=== PATIENT | male | born 1965 | race Caucasian/White ===

== ENCOUNTER 2021-04-30 13:12 | Inpatient (IN) | payer OTHER ==
[2021-04-30 13:29] VITALS: BMI 25.8
[2021-04-30] MEDS ORDERED: PIPERACILLIN/TAZOB 4.5 GM 4.5 GM in DEXTROSE 5%-WATER 100 ML IVPB ONE (14:10)
[2021-04-30] MEDS ORDERED: VANCOMYCIN 1 GM in D5W (PRE-DOCKED) 1,000 MG/250 ML IVPB ONE (14:10)
[2021-04-30] MEDS ORDERED: PIPERACILLIN/TAZOB 4.5 GM 4.5 GM/100 ML BAG IVPB ONE (14:34)
[2021-04-30] MEDS ORDERED: VANCOMYCIN 1 GRAM (PRE-DOCKED) 1,000 MG/250 ML BAG IVPB ONE (14:34)
[2021-04-30 14:38] LABS: BASO % 0.2 % (0-2.0); EOS % 1.3 % (0-4.5); HEMATOCRIT 32.8 % (35.4-49); HEMOGLOBIN 10.9 GM/dL (11.7-16.9); MCH 28.7 pg (25.7-33.7); MCHC 33.4 g/dl (32.0-35.9); MEAN PLT VOLUME 6.9 fl (7.5-11.1); MONO % 9.8 % (3.8-10.2); NEUT % 79.7 % (42.8-82.8); PLATELET COUNT 249 10^3/uL (134-434); RBC 3.81 M/mm3 (4.00-5.60); RDW 16.1 % (11.9-15.9); WHITE BLOOD COUNT 6.6 K/mm3 (4.0-10.0)
[2021-04-30 15:06] LABS: CALCIUM 9.1 mg/dL (8.5-10.1)
[2021-04-30 15:07] LABS: ALBUMIN 3.3 g/dl (3.4-5.0)
[2021-04-30 15:09] LABS: CREATININE 1.5 mg/dL (0.55-1.3)
[2021-04-30 15:11] LABS: BILIRUBIN,TOTAL 0.4 mg/dL (0.2-1); TOT PROT 7.4 g/dl (6.4-8.2)
[2021-04-30] MEDS ORDERED: INSULIN SLIDING SCALE (NOVOLOG) 1 VIAL SQ SCH (16:30)
[2021-04-30] MEDS ORDERED: CLINDAMYCIN 600MG PREMIX IVPB 600 MG/50 ML BAG IVPB SCH (18:00)
[2021-04-30] MEDS: INSULIN SLIDING SCALE (NOVOLOG) 1 VIAL SQ SCH ×2 (20:12→23:17)
[2021-04-30] MEDS: CEFTAZIDIME PENTAHYDRATE 1 GM in DEXTROSE 5%-WATER - 50 ML IVPB SCH (20:12)
[2021-04-30] MEDS: INSULIN (LEVEMIR) 100 UNITS/ML UNITS SQ SCH (23:17)
[2021-04-30] MEDS ORDERED: hydrALAZINE HCL 10 MG TABLET PO ONE (23:24)
[2021-05-01] MEDS ORDERED: DEXTROSE 5%-WATER - 50 ML IVPB ONE ×3 (01:14→17:03)
[2021-05-01] MEDS ORDERED: cefTAZidime PENTAHYDRATE 1 GM VIAL (RESTRICTED TO ID) ONE ×3 (01:14→17:03)
[2021-05-01] MEDS: CEFTAZIDIME PENTAHYDRATE 1 GM in DEXTROSE 5%-WATER - 50 ML IVPB SCH ×3 (01:34→17:13)
[2021-05-01] MEDS ORDERED: amLODIPine BESYLATE 5 MG TABLET (FP) PO ONE (05:44)
[2021-05-01] MEDS: INSULIN SLIDING SCALE (NOVOLOG) 1 VIAL SQ SCH ×4 (06:04→21:41)
[2021-05-01] MEDS: amLODIPine BESYLATE 5 MG TABLET (FP) PO SCH (09:55)
[2021-05-01] MEDS: SODIUM CHLORIDE 1,000 ML IV SCH (11:39)
[2021-05-01] MEDS: COLLAGENASE CLOSTRIDIUM HIST. 30 GRAMS TUBE TP SCH (13:43)
[2021-05-01] MEDS ORDERED: HEPARIN NA (PORCINE) 5,000 UNITS/ML 1ML VIAL SQ SCH (14:00)
[2021-05-01] MEDS: INSULIN (LEVEMIR) 100 UNITS/ML UNITS SQ SCH (21:42)
[2021-05-02] MEDS ORDERED: DEXTROSE 5%-WATER - 50 ML IVPB ONE ×3 (00:45→16:41)
[2021-05-02] MEDS ORDERED: cefTAZidime PENTAHYDRATE 1 GM VIAL (RESTRICTED TO ID) ONE ×3 (00:45→16:41)
[2021-05-02] MEDS: CEFTAZIDIME PENTAHYDRATE 1 GM in DEXTROSE 5%-WATER - 50 ML IVPB SCH ×3 (01:00→17:26)
[2021-05-02] MEDS ORDERED: hydrALAZINE HCL 20 MG/ML VIAL IVPUSH ONE (03:07)
[2021-05-02] MEDS ORDERED: amLODIPine BESYLATE 5 MG TABLET (FP) PO ONE (03:42)
[2021-05-02] MEDS: SODIUM CHLORIDE 1,000 ML IV SCH ×2 (03:59→12:19)
[2021-05-02] MEDS: INSULIN SLIDING SCALE (NOVOLOG) 1 VIAL SQ SCH ×4 (06:15→22:32)
[2021-05-02] MEDS: amLODIPine BESYLATE 5 MG TABLET (FP) PO SCH (09:09)
[2021-05-02] MEDS: COLLAGENASE CLOSTRIDIUM HIST. 30 GRAMS TUBE TP SCH (09:09)
[2021-05-02] MEDS ORDERED: amLODIPine BESYLATE 5 MG TABLET (FP) PO SCH (10:00)
[2021-05-02 10:24] LABS: BASO % 0.3 % (0-2.0); EOS % 2.8 % (0-4.5); HEMATOCRIT 31.1 % (35.4-49); HEMOGLOBIN 10.5 GM/dL (11.7-16.9); LYMPH % 18.2 % (8-40); MCH 29.1 pg (25.7-33.7); MCHC 33.7 g/dl (32.0-35.9); MEAN CELL VOLUME 86.5 fl (80-96); MEAN PLT VOLUME 6.6 fl (7.5-11.1); MONO % 11.1 % (3.8-10.2); NEUT % 67.6 % (42.8-82.8); PLATELET COUNT 287 10^3/uL (134-434); RDW 16.3 % (11.9-15.9); WHITE BLOOD COUNT 4.5 K/mm3 (4.0-10.0)
[2021-05-02 10:47] LABS: ALBUMIN 2.9 g/dl (3.4-5.0); BLOOD UREA NITROGEN 13.7 mg/dL (7-18)
[2021-05-02 10:50] LABS: CREATININE 1.4 mg/dL (0.55-1.3); PHOSPHOROUS 2.4 mg/dL (2.5-4.9); TOT PROT 6.8 g/dl (6.4-8.2)
[2021-05-02 10:51] LABS: BILIRUBIN,TOTAL 0.4 mg/dL (0.2-1)
[2021-05-02] MEDS ORDERED: INSULIN (NOVOLOG) ASPART 100 UNITS/ML 10ML VIAL ONE (21:31)
[2021-05-02] MEDS: INSULIN (LEVEMIR) 100 UNITS/ML UNITS SQ SCH (22:32)
[2021-05-03] MEDS ORDERED: cefTAZidime PENTAHYDRATE 1 GM VIAL (RESTRICTED TO ID) ONE ×3 (00:30→17:10)
[2021-05-03] MEDS ORDERED: DEXTROSE 5%-WATER - 50 ML IVPB ONE ×2 (00:31→10:35)
[2021-05-03] MEDS: CEFTAZIDIME PENTAHYDRATE 1 GM in DEXTROSE 5%-WATER - 50 ML IVPB SCH ×3 (01:54→17:17)
[2021-05-03] MEDS: INSULIN SLIDING SCALE (NOVOLOG) 1 VIAL SQ SCH ×4 (07:21→21:03)
[2021-05-03] MEDS ORDERED: INSULIN (NOVOLOG) ASPART 100 UNITS/ML 10ML VIAL ONE (10:35)
[2021-05-03] MEDS: amLODIPine BESYLATE 5 MG TABLET (FP) PO SCH (10:40)
[2021-05-03] MEDS: COLLAGENASE CLOSTRIDIUM HIST. 30 GRAMS TUBE TP SCH (10:41)
[2021-05-03 13:45] LABS: BASO % 0.2 % (0-2.0); EOS % 2.4 % (0-4.5); HEMOGLOBIN 10.4 GM/dL (11.7-16.9); LYMPH % 17.9 % (8-40); MCH 29.3 pg (25.7-33.7); MCHC 33.7 g/dl (32.0-35.9); MEAN PLT VOLUME 6.6 fl (7.5-11.1); MONO % 11.3 % (3.8-10.2); NEUT % 68.2 % (42.8-82.8); PLATELET COUNT 295 10^3/uL (134-434); RBC 3.56 M/mm3 (4.00-5.60); RDW 15.9 % (11.9-15.9); WHITE BLOOD COUNT 4.3 K/mm3 (4.0-10.0)
[2021-05-03 13:53] LABS: CALCIUM 8.8 mg/dL (8.5-10.1)
[2021-05-03 13:54] LABS: ALBUMIN 2.8 g/dl (3.4-5.0); BLOOD UREA NITROGEN 23.6 mg/dL (7-18)
[2021-05-03 13:57] LABS: CREATININE 1.8 mg/dL (0.55-1.3)
[2021-05-03 13:59] LABS: BILIRUBIN,TOTAL 0.3 mg/dL (0.2-1); TOT PROT 6.5 g/dl (6.4-8.2)
[2021-05-03] MEDS: INSULIN (LEVEMIR) 100 UNITS/ML UNITS SQ SCH (21:03)
[2021-05-03] MEDS: ATORVASTATIN CA 40 MG TABLET (FP) PO SCH (21:04)
[2021-05-04] MEDS ORDERED: cefTAZidime PENTAHYDRATE 1 GM VIAL (RESTRICTED TO ID) ONE ×3 (01:34→17:24)
[2021-05-04] MEDS ORDERED: DEXTROSE 5%-WATER - 50 ML IVPB ONE ×3 (01:34→17:24)
[2021-05-04] MEDS: CEFTAZIDIME PENTAHYDRATE 1 GM in DEXTROSE 5%-WATER - 50 ML IVPB SCH ×3 (01:41→18:19)
[2021-05-04] MEDS: INSULIN SLIDING SCALE (NOVOLOG) 1 VIAL SQ SCH ×4 (06:14→21:09)
[2021-05-04] MEDS: COLLAGENASE CLOSTRIDIUM HIST. 30 GRAMS TUBE TP SCH (09:26)
[2021-05-04] MEDS: amLODIPine BESYLATE 5 MG TABLET (FP) PO SCH (09:26)
[2021-05-04] MEDS ORDERED: INSULIN (NOVOLOG) ASPART 100 UNITS/ML 10ML VIAL ONE (11:22)
[2021-05-04] MEDS: SODIUM CHLORIDE 0.45% 1,000 ML IV SCH ×2 (11:32→22:36)
[2021-05-04 12:32] LABS: BASO % 0.2 % (0-2.0); EOS % 1.6 % (0-4.5); HEMATOCRIT 30.4 % (35.4-49); HEMOGLOBIN 10.1 GM/dL (11.7-16.9); LYMPH % 17.1 % (8-40); MCH 28.9 pg (25.7-33.7); MCHC 33.1 g/dl (32.0-35.9); MEAN CELL VOLUME 87.2 fl (80-96); MEAN PLT VOLUME 6.7 fl (7.5-11.1); MONO % 12.3 % (3.8-10.2); NEUT % 68.8 % (42.8-82.8); PLATELET COUNT 284 10^3/uL (134-434); RBC 3.49 M/mm3 (4.00-5.60); WHITE BLOOD COUNT 4.2 K/mm3 (4.0-10.0)
[2021-05-04 13:30] LABS: ALBUMIN 2.8 g/dl (3.4-5.0); BLOOD UREA NITROGEN 26.1 mg/dL (7-18); CREATININE 1.6 mg/dL (0.55-1.3); MAGNESIUM 2.2 mg/dL (1.8-2.4); PHOSPHOROUS 2.9 mg/dL (2.5-4.9)
[2021-05-04 13:31] LABS: BILIRUBIN,TOTAL 0.4 mg/dL (0.2-1); TOT PROT 6.5 g/dl (6.4-8.2)
[2021-05-04] MEDS: ATORVASTATIN CA 40 MG TABLET (FP) PO SCH (21:02)
[2021-05-04] MEDS: INSULIN (LEVEMIR) 100 UNITS/ML UNITS SQ SCH (21:09)
[2021-05-05] MEDS ORDERED: cefTAZidime PENTAHYDRATE 1 GM VIAL (RESTRICTED TO ID) ONE ×3 (01:26→18:31)
[2021-05-05] MEDS ORDERED: DEXTROSE 5%-WATER - 50 ML IVPB ONE ×3 (01:27→18:31)
[2021-05-05] MEDS: CEFTAZIDIME PENTAHYDRATE 1 GM in DEXTROSE 5%-WATER - 50 ML IVPB SCH ×4 (01:36→18:43)
[2021-05-05] MEDS: INSULIN SLIDING SCALE (NOVOLOG) 1 VIAL SQ SCH ×4 (06:09→21:27)
[2021-05-05] MEDS: amLODIPine BESYLATE 5 MG TABLET (FP) PO SCH (10:15)
[2021-05-05] MEDS: SODIUM CHLORIDE 0.45% 1,000 ML IV SCH (11:49)
[2021-05-05] MEDS: COLLAGENASE CLOSTRIDIUM HIST. 30 GRAMS TUBE TP SCH (11:49)
[2021-05-05] MEDS ORDERED: AMOX TR/POT CLAV 875MG/125MG TABLETS (FP) PO ONE (19:01)
[2021-05-05] MEDS: ATORVASTATIN CA 40 MG TABLET (FP) PO SCH (21:26)
[2021-05-05] MEDS: INSULIN (LEVEMIR) 100 UNITS/ML UNITS SQ SCH (21:26)
[2021-05-06] MEDS: INSULIN SLIDING SCALE (NOVOLOG) 1 VIAL SQ SCH ×2 (06:00→11:29)
[2021-05-06 06:49] VITALS: BP 149/80; PULSE 74; TEMP 98.3
[2021-05-06] MEDS ORDERED: AMOX TR/POT CLAV 875MG/125MG TABLETS (FP) PO SCH (08:00)
[2021-05-06] MEDS: amLODIPine BESYLATE 5 MG TABLET (FP) PO SCH (09:28)
[2021-05-06] MEDS: COLLAGENASE CLOSTRIDIUM HIST. 30 GRAMS TUBE TP SCH (11:30)
[2021-05-06 14:33] LABS: EPI CELLS 2 /uL (0-25.1); HYALINE CASTS 0 /uL (0-3.1); URINE APPEARANCE CLEAR; URINE BACTERIA 1 /uL (0-1359); URINE BILIRUBIN NEGATIVE (NEGATIVE); URINE COLOR YELLOW; URINE GLUCOSE (UA) TRACE (NEGATIVE); URINE KETONE NEGATIVE (NEGATIVE); URINE LEUK ESTERASE NEGATIVE (NEGATIVE); URINE NITRITE NEGATIVE (NEGATIVE); URINE PROTEIN 2+ (NEGATIVE); URINE RBC 5 /uL (0-23.9); URINE UROBILINOGEN 0.2 mg/dL (0.2-1.0); URINE WBC 1 /uL (0-25.8)
== END 2021-05-06 14:35 | disposition home or self-care (01) | DRG 602 ==
LOC: JER 13:12 → JERBED 14:42 → J6S 23:34
PROVIDERS: ADMIT Internal Medicine; ATTEND Internal Medicine
DX: L03.116 Cellulitis of left lower limb (principal); U07.1 COVID-19; L97.528 Non-pressure chronic ulcer of other part of left foot with other specified severity; L97.518 Non-pressure chronic ulcer of other part of right foot with other specified severity; N17.9 Acute kidney failure, unspecified; E78.5 Hyperlipidemia, unspecified; E11.621 Type 2 diabetes mellitus with foot ulcer; D36.7 Benign neoplasm of other specified sites; Z89.431 Acquired absence of right foot; E11.65 Type 2 diabetes mellitus with hyperglycemia; R22.42 Localized swelling, mass and lump, left lower limb; I12.9 Hypertensive chronic kidney disease with stage 1 through stage 4 chronic kidney disease, or unspecified chronic kidney disease; E11.22 Type 2 diabetes mellitus with diabetic chronic kidney disease; N18.9 Chronic kidney disease, unspecified; E11.610 Type 2 diabetes mellitus with diabetic neuropathic arthropathy
CPT/HCPCS: 36415; 73630-TC-LT; 73718-TC-LT; 73718-TC-RT; 76775-TC; 80053; 80061; 81003; 82570; 82962; 83735; 84100; 84156; 85025; 86140; 87040; 87070; 87205; 93005; 93010; 99285-25; C9803; G0463-25; U0003; U0005

== ENCOUNTER 2021-06-12 13:36 | Inpatient (IN) | payer OTHER ==
[2021-06-12] MEDS ORDERED: VANCOMYCIN 1 GM in D5W (PRE-DOCKED) 1,000 MG/250 ML IVPB ONE (14:30)
[2021-06-12] MEDS ORDERED: PIPERACILLIN/TAZOB 4.5 GM 4.5 GM in DEXTROSE 5%-WATER 100 ML IVPB ONE (14:30)
[2021-06-12] MEDS ORDERED: VANCOMYCIN 1 GRAM (PRE-DOCKED) 1,000 MG/250 ML BAG IVPB ONE ×2 (14:56→14:59)
[2021-06-12] MEDS ORDERED: PIPERACILLIN/TAZOB 4.5 GM 4.5 GM/100 ML BAG IVPB ONE (14:56)
[2021-06-12 15:10] LABS: BASO % 0.6 % (0-2.0); EOS % 3.1 % (0-4.5); HEMATOCRIT 31.6 % (35.4-49); LYMPH % 24.9 % (8-40); MCH 30.3 pg (25.7-33.7); MCHC 34.7 g/dl (32.0-35.9); MEAN CELL VOLUME 87.4 fl (80-96); MEAN PLT VOLUME 6.7 fl (7.5-11.1); MONO % 8.3 % (3.8-10.2); NEUT % 63.1 % (42.8-82.8); PLATELET COUNT 245 10^3/uL (134-434); RBC 3.61 M/mm3 (4.00-5.60); RDW 15.3 % (11.9-15.9)
[2021-06-12 15:20] LABS: INR 0.91 (0.83-1.09); PROTHROMBIN TIME (PATIENT) 10.4 SEC (9.7-13.0)
[2021-06-12 15:23] LABS: ACTIVATED PTT 31.9 SECONDS (25.2-36.5)
[2021-06-12 15:34] LABS: ALBUMIN 3.5 g/dl (3.4-5.0); BLOOD UREA NITROGEN 20.5 mg/dL (7-18); CALCIUM 8.6 mg/dL (8.5-10.1)
[2021-06-12 15:36] LABS: MAGNESIUM 2.4 mg/dL (1.8-2.4)
[2021-06-12 15:38] LABS: CREATININE 1.9 mg/dL (0.55-1.3)
[2021-06-12 15:39] LABS: BILIRUBIN,TOTAL 0.2 mg/dL (0.2-1); TOT PROT 7.5 g/dl (6.4-8.2)
[2021-06-12] MEDS ORDERED: HEPARIN NA (PORCINE) 5,000 UNITS/ML 1ML VIAL ONE (21:44)
[2021-06-12] MEDS ORDERED: ATORVASTATIN CA 40 MG TABLET (FP) ONE (21:44)
[2021-06-12] MEDS ORDERED: INSULIN SLIDING SCALE (NOVOLOG) 1 VIAL SQ ONE (21:45)
[2021-06-12] MEDS ORDERED: INSULIN (LEVEMIR) 100 UNITS/ML UNITS SQ ONE (21:45)
[2021-06-12] MEDS: HEPARIN NA (PORCINE) 5,000 UNITS/ML 1ML VIAL SQ SCH (22:30)
[2021-06-12] MEDS: INSULIN SLIDING SCALE (NOVOLOG) 1 VIAL SQ SCH (22:30)
[2021-06-12] MEDS: ATORVASTATIN CA 40 MG TABLET (FP) PO SCH (22:30)
[2021-06-12] MEDS: INSULIN (LEVEMIR) 100 UNITS/ML UNITS SQ SCH (22:30)
[2021-06-13] MEDS ORDERED: amLODIPine BESYLATE 5 MG TABLET (FP) PO ONE ×2 (00:09→03:47)
[2021-06-13] MEDS: CLINDAMYCIN 600MG PREMIX IVPB 600 MG/50 ML BAG IVPB SCH ×3 (02:04→17:15)
[2021-06-13] MEDS: COLLAGENASE CLOSTRIDIUM HIST. 30 GRAMS TUBE TP SCH ×2 (02:05→11:39)
[2021-06-13] MEDS ORDERED: hydrALAZINE HCL 20 MG/ML VIAL IVPUSH ONE (02:14)
[2021-06-13] MEDS ORDERED: PIPERACILLIN/TAZOB 3.375 GM 3.375 GM in DEXTROSE 5%-WATER - 50 ML IVPB SCH (03:00)
[2021-06-13] MEDS ORDERED: VANCOMYCIN/WATER BAGS 1,250 MG/250 ML BAG IVPB SCH (04:00)
[2021-06-13 04:19] VITALS: BMI 25.6
[2021-06-13] MEDS: HEPARIN NA (PORCINE) 5,000 UNITS/ML 1ML VIAL SQ SCH ×3 (05:56→22:35)
[2021-06-13] MEDS: INSULIN SLIDING SCALE (NOVOLOG) 1 VIAL SQ SCH ×4 (06:44→22:35)
[2021-06-13] MEDS ORDERED: CEFEPIME HCL/D5W 2 GM/50 ML BAG IVPB SCH (07:00)
[2021-06-13] MEDS ORDERED: CEFEPIME 2 GM in DEXTROSE 5%-WATER 2 GM/100 ML BAG IVPB SCH ×2 (07:00→18:04)
[2021-06-13 07:51] LABS: CALCIUM 9.2 mg/dL (8.5-10.1)
[2021-06-13 07:53] LABS: BLOOD UREA NITROGEN 18.5 mg/dL (7-18); MAGNESIUM 2.3 mg/dL (1.8-2.4)
[2021-06-13 07:55] LABS: CREATININE 1.6 mg/dL (0.55-1.3); PHOSPHOROUS 3.3 mg/dL (2.5-4.9)
[2021-06-13 07:57] LABS: BASO % 0.6 % (0-2.0); EOS % 3.6 % (0-4.5); HEMATOCRIT 30.1 % (35.4-49); HEMOGLOBIN 10.6 GM/dL (11.7-16.9); LYMPH % 8.2 % (8-40); MCH 30.3 pg (25.7-33.7); MCHC 35.2 g/dl (32.0-35.9); MEAN CELL VOLUME 86.3 fl (80-96); MEAN PLT VOLUME 7.2 fl (7.5-11.1); MONO % 7.2 % (3.8-10.2); NEUT % 80.4 % (42.8-82.8); PLATELET COUNT 245 10^3/uL (134-434); RBC 3.49 M/mm3 (4.00-5.60); RDW 15.3 % (11.9-15.9); WHITE BLOOD COUNT 5.4 K/mm3 (4.0-10.0)
[2021-06-13] MEDS: amLODIPine BESYLATE 5 MG TABLET (FP) PO SCH (11:14)
[2021-06-13 13:07] LABS: SARS-CoV-2 NAA Not Detected (Not Detected)
[2021-06-13] MEDS ORDERED: INSULIN (NOVOLOG) ASPART 100 UNITS/ML 10ML VIAL ONE ×2 (18:00→21:35)
[2021-06-13] MEDS: INSULIN (LEVEMIR) 100 UNITS/ML UNITS SQ SCH (22:35)
[2021-06-13] MEDS: CEFEPIME 2 GM in DEXTROSE 5%-WATER 2 GM/100 ML BAG IVPB SCH (22:35)
[2021-06-13] MEDS: ATORVASTATIN CA 40 MG TABLET (FP) PO SCH (22:35)
[2021-06-14] MEDS: CLINDAMYCIN 600MG PREMIX IVPB 600 MG/50 ML BAG IVPB SCH ×3 (02:13→17:20)
[2021-06-14] MEDS: ACETAMINOPHEN 325 MG TABLET (FP) PO PRN (03:13)
[2021-06-14] MEDS: INSULIN SLIDING SCALE (NOVOLOG) 1 VIAL SQ SCH ×4 (06:12→21:30)
[2021-06-14] MEDS: HEPARIN NA (PORCINE) 5,000 UNITS/ML 1ML VIAL SQ SCH ×3 (06:12→21:20)
[2021-06-14 09:56] LABS: PROTHROMBIN TIME (PATIENT) 11.5 SEC (9.7-13.0)
[2021-06-14] MEDS: CEFEPIME 2 GM in DEXTROSE 5%-WATER 2 GM/100 ML BAG IVPB SCH ×2 (09:59→21:15)
[2021-06-14] MEDS: amLODIPine BESYLATE 5 MG TABLET (FP) PO SCH (10:01)
[2021-06-14] MEDS: COLLAGENASE CLOSTRIDIUM HIST. 30 GRAMS TUBE TP SCH (10:01)
[2021-06-14] MEDS ORDERED: INSULIN (NOVOLOG) ASPART 100 UNITS/ML 10ML VIAL ONE (11:33)
[2021-06-14] MEDS ORDERED: FAMOTIDINE 20 MG TABLET PO ONE (18:12)
[2021-06-14] MEDS: PANTOPRAZOLE 40 MG TABLET PO SCH (20:54)
[2021-06-14] MEDS: INSULIN (LEVEMIR) 100 UNITS/ML UNITS SQ SCH (21:15)
[2021-06-14] MEDS: ATORVASTATIN CA 40 MG TABLET (FP) PO SCH (21:15)
[2021-06-15] MEDS: CLINDAMYCIN 600MG PREMIX IVPB 600 MG/50 ML BAG IVPB SCH ×2 (01:52→10:46)
[2021-06-15] MEDS: HEPARIN NA (PORCINE) 5,000 UNITS/ML 1ML VIAL SQ SCH ×3 (05:29→21:43)
[2021-06-15] MEDS: INSULIN (LEVEMIR) 100 UNITS/ML UNITS SQ SCH ×2 (06:06→21:42)
[2021-06-15] MEDS: INSULIN SLIDING SCALE (NOVOLOG) 1 VIAL SQ SCH ×4 (06:07→21:41)
[2021-06-15 09:25] LABS: HEMATOCRIT 32.8 % (35.4-49); HEMOGLOBIN 11.2 GM/dL (11.7-16.9); MCH 29.8 pg (25.7-33.7); MCHC 34.1 g/dl (32.0-35.9); MEAN CELL VOLUME 87.3 fl (80-96); MEAN PLT VOLUME 7.1 fl (7.5-11.1); PLATELET COUNT 231 10^3/uL (134-434); RBC 3.76 M/mm3 (4.00-5.60); RDW 15.3 % (11.9-15.9); WHITE BLOOD COUNT 4.3 K/mm3 (4.0-10.0)
[2021-06-15 09:52] LABS: BLOOD UREA NITROGEN 22.2 mg/dL (7-18); CALCIUM 9.1 mg/dL (8.5-10.1); MAGNESIUM 2.3 mg/dL (1.8-2.4)
[2021-06-15 09:54] LABS: CREATININE 1.7 mg/dL (0.55-1.3)
[2021-06-15] MEDS ORDERED: PANTOPRAZOLE 40 MG TABLET PO SCH (10:00)
[2021-06-15] MEDS: PANTOPRAZOLE 40 MG TABLET PO SCH (10:46)
[2021-06-15] MEDS: amLODIPine BESYLATE 5 MG TABLET (FP) PO SCH (10:46)
[2021-06-15] MEDS: COLLAGENASE CLOSTRIDIUM HIST. 30 GRAMS TUBE TP SCH (10:46)
[2021-06-15] MEDS: CEFEPIME 2 GM in DEXTROSE 5%-WATER 2 GM/100 ML BAG IVPB SCH ×2 (11:45→21:44)
[2021-06-15] MEDS: ACETAMINOPHEN 325 MG TABLET (FP) PO PRN (12:03)
[2021-06-15] MEDS: ATORVASTATIN CA 40 MG TABLET (FP) PO SCH (21:44)
[2021-06-16] MEDS: ACETAMINOPHEN 325 MG TABLET (FP) PO PRN (02:34)
[2021-06-16] MEDS: HEPARIN NA (PORCINE) 5,000 UNITS/ML 1ML VIAL SQ SCH (05:33)
[2021-06-16] MEDS: INSULIN (LEVEMIR) 100 UNITS/ML UNITS SQ SCH ×2 (06:06→21:01)
[2021-06-16] MEDS: INSULIN SLIDING SCALE (NOVOLOG) 1 VIAL SQ SCH ×4 (06:07→21:01)
[2021-06-16] MEDS ORDERED: DOCUSATE SODIUM 100 MG CAPSULE (FP) PO PRN (09:58)
[2021-06-16] MEDS ORDERED: POLYETHYLENE GLYCOL (HEALTHYLAX) 3350 17 GM PACKET PO PRN (09:58)
[2021-06-16] MEDS ORDERED: POLYETHYLENE GLYCOL (HEALTHYLAX) 3350 17 GM PACKET PO SCH (10:00)
[2021-06-16] MEDS ORDERED: DOCUSATE SODIUM 100 MG CAPSULE (FP) PO SCH (10:00)
[2021-06-16 10:01] LABS: BASO % 0.4 % (0-2.0); EOS % 2.9 % (0-4.5); HEMATOCRIT 34.1 % (35.4-49); HEMOGLOBIN 11.5 GM/dL (11.7-16.9); LYMPH % 22.4 % (8-40); MCH 29.5 pg (25.7-33.7); MCHC 33.7 g/dl (32.0-35.9); MEAN CELL VOLUME 87.6 fl (80-96); MEAN PLT VOLUME 7.2 fl (7.5-11.1); MONO % 9.9 % (3.8-10.2); NEUT % 64.4 % (42.8-82.8); PLATELET COUNT 244 10^3/uL (134-434); RBC 3.89 M/mm3 (4.00-5.60); WHITE BLOOD COUNT 4.2 K/mm3 (4.0-10.0)
[2021-06-16 10:21] LABS: CALCIUM 9.5 mg/dL (8.5-10.1)
[2021-06-16 10:22] LABS: BLOOD UREA NITROGEN 25.7 mg/dL (7-18)
[2021-06-16 10:25] LABS: CREATININE 1.7 mg/dL (0.55-1.3)
[2021-06-16] MEDS: SODIUM CHLORIDE 1,000 ML IV SCH ×2 (10:43→23:19)
[2021-06-16] MEDS: amLODIPine BESYLATE 5 MG TABLET (FP) PO SCH (10:44)
[2021-06-16] MEDS: CEFEPIME 2 GM in DEXTROSE 5%-WATER 2 GM/100 ML BAG IVPB SCH ×2 (10:44→21:03)
[2021-06-16] MEDS: PANTOPRAZOLE 40 MG TABLET PO SCH (10:44)
[2021-06-16] MEDS ORDERED: INSULIN (NOVOLOG) ASPART 100 UNITS/ML 10ML VIAL ONE ×2 (11:43→20:42)
[2021-06-16] MEDS: COLLAGENASE CLOSTRIDIUM HIST. 30 GRAMS TUBE TP SCH (12:49)
[2021-06-16] MEDS: DOXYCYCLINE HYCLATE 100 MG CAPSULE PO SCH ×2 (20:55→23:17)
[2021-06-16] MEDS: ATORVASTATIN CA 40 MG TABLET (FP) PO SCH (21:02)
[2021-06-17] MEDS: INSULIN (LEVEMIR) 100 UNITS/ML UNITS SQ SCH ×2 (06:10→21:42)
[2021-06-17] MEDS: INSULIN SLIDING SCALE (NOVOLOG) 1 VIAL SQ SCH ×4 (06:11→21:43)
[2021-06-17] MEDS: amLODIPine BESYLATE 5 MG TABLET (FP) PO SCH (09:22)
[2021-06-17] MEDS: CEFEPIME 2 GM in DEXTROSE 5%-WATER 2 GM/100 ML BAG IVPB SCH (09:23)
[2021-06-17 09:49] LABS: BASO % 0.5 % (0-2.0); EOS % 2.8 % (0-4.5); HEMATOCRIT 30.8 % (35.4-49); HEMOGLOBIN 10.9 GM/dL (11.7-16.9); INR 1.01 (0.83-1.09); LYMPH % 16.3 % (8-40); MCH 30.9 pg (25.7-33.7); MCHC 35.5 g/dl (32.0-35.9); MEAN PLT VOLUME 6.8 fl (7.5-11.1); MONO % 10.9 % (3.8-10.2); NEUT % 69.5 % (42.8-82.8); PLATELET COUNT 205 10^3/uL (134-434); PROTHROMBIN TIME (PATIENT) 11.6 SEC (9.7-13.0); RBC 3.54 M/mm3 (4.00-5.60); WHITE BLOOD COUNT 4.3 K/mm3 (4.0-10.0)
[2021-06-17] MEDS ORDERED: LIDOCAINE HCL 1%, 10 MG/ML (20ML VIAL) INF ONE ×2 (10:44)
[2021-06-17] MEDS ORDERED: BUPIVACAINE HCL/PF 0.5% (5MG/ML) 10 ML VIAL IJ ONE ×2 (10:45)
[2021-06-17] MEDS ORDERED: PROPOFOL 20 ML ONE (10:46)
[2021-06-17] MEDS ORDERED: MIDAZOLAM HCL 2 MG/2 ML SINGLE DOSE VIAL ONE ×2 (10:47)
[2021-06-17 10:58] LABS: CALCIUM 8.8 mg/dL (8.5-10.1)
[2021-06-17 10:59] LABS: BLOOD UREA NITROGEN 21.8 mg/dL (7-18)
[2021-06-17 11:02] LABS: CREATININE 1.6 mg/dL (0.55-1.3)
[2021-06-17] MEDS ORDERED: DEXAMETHASONE SOD PHOSPHATE 4 MG/1 ML VIAL ONE (11:16)
[2021-06-17] MEDS: SODIUM CHLORIDE 1,000 ML IV SCH ×2 (12:27→13:47)
[2021-06-17] MEDS: DOXYCYCLINE HYCLATE 100 MG CAPSULE PO SCH ×2 (12:27→17:39)
[2021-06-17] MEDS: COLLAGENASE CLOSTRIDIUM HIST. 30 GRAMS TUBE TP SCH (12:27)
[2021-06-17] MEDS ORDERED: ONDANSETRON 4 MG/2 ML VIAL IVPUSH PRN (12:42)
[2021-06-17] MEDS ORDERED: LACTATED RINGERS SOLUTION 1,000 ML IV SCH (12:45)
[2021-06-17] MEDS ORDERED: ACETAMINOPHEN 325 MG TABLET (FP) PO PRN (12:55)
[2021-06-17] MEDS ORDERED: POLYETHYLENE GLYCOL (HEALTHYLAX) 3350 17 GM PACKET PO PRN (12:55)
[2021-06-17] MEDS ORDERED: DOCUSATE SODIUM 100 MG CAPSULE (FP) PO PRN (12:55)
[2021-06-17] MEDS: PANTOPRAZOLE 40 MG TABLET PO SCH (13:47)
[2021-06-17] MEDS: ATORVASTATIN CA 40 MG TABLET (FP) PO SCH (21:45)
[2021-06-18] MEDS: SODIUM CHLORIDE 1,000 ML IV SCH ×2 (01:09→12:59)
[2021-06-18] MEDS: INSULIN (LEVEMIR) 100 UNITS/ML UNITS SQ SCH ×2 (06:19→21:50)
[2021-06-18] MEDS: INSULIN SLIDING SCALE (NOVOLOG) 1 VIAL SQ SCH ×4 (06:22→21:51)
[2021-06-18] MEDS: DOXYCYCLINE HYCLATE 100 MG CAPSULE PO SCH ×2 (09:21→17:23)
[2021-06-18] MEDS: amLODIPine BESYLATE 5 MG TABLET (FP) PO SCH (09:21)
[2021-06-18] MEDS: PANTOPRAZOLE 40 MG TABLET PO SCH (09:21)
[2021-06-18 09:42] LABS: BASO % 0.2 % (0-2.0); EOS % 0.5 % (0-4.5); HEMATOCRIT 28.8 % (35.4-49); HEMOGLOBIN 10.2 GM/dL (11.7-16.9); LYMPH % 11.9 % (8-40); MCH 30.8 pg (25.7-33.7); MCHC 35.5 g/dl (32.0-35.9); MEAN CELL VOLUME 86.9 fl (80-96); MEAN PLT VOLUME 7.1 fl (7.5-11.1); MONO % 9.1 % (3.8-10.2); NEUT % 78.3 % (42.8-82.8); PLATELET COUNT 210 10^3/uL (134-434); RBC 3.32 M/mm3 (4.00-5.60); RDW 15.8 % (11.9-15.9); WHITE BLOOD COUNT 7.8 K/mm3 (4.0-10.0)
[2021-06-18 09:56] LABS: BLOOD UREA NITROGEN 25.3 mg/dL (7-18); CALCIUM 9.1 mg/dL (8.5-10.1)
[2021-06-18 10:00] LABS: CREATININE 1.6 mg/dL (0.55-1.3)
[2021-06-18] MEDS: COLLAGENASE CLOSTRIDIUM HIST. 30 GRAMS TUBE TP SCH (13:08)
[2021-06-18] MEDS: ATORVASTATIN CA 40 MG TABLET (FP) PO SCH (21:50)
[2021-06-19] MEDS: INSULIN (LEVEMIR) 100 UNITS/ML UNITS SQ SCH ×2 (06:09→21:09)
[2021-06-19] MEDS: INSULIN SLIDING SCALE (NOVOLOG) 1 VIAL SQ SCH ×4 (06:10→21:09)
[2021-06-19 08:52] LABS: BASO % 0.5 % (0-2.0); EOS % 2.1 % (0-4.5); HEMATOCRIT 29.6 % (35.4-49); HEMOGLOBIN 10.2 GM/dL (11.7-16.9); LYMPH % 20.3 % (8-40); MCH 30.3 pg (25.7-33.7); MCHC 34.3 g/dl (32.0-35.9); MEAN CELL VOLUME 88.2 fl (80-96); MEAN PLT VOLUME 7.2 fl (7.5-11.1); MONO % 10.2 % (3.8-10.2); NEUT % 66.9 % (42.8-82.8); PLATELET COUNT 218 10^3/uL (134-434); RBC 3.35 M/mm3 (4.00-5.60); RDW 15.6 % (11.9-15.9); WHITE BLOOD COUNT 4.8 K/mm3 (4.0-10.0)
[2021-06-19 09:29] LABS: CALCIUM 8.9 mg/dL (8.5-10.1)
[2021-06-19 09:32] LABS: CREATININE 1.4 mg/dL (0.55-1.3)
[2021-06-19] MEDS: amLODIPine BESYLATE 5 MG TABLET (FP) PO SCH (10:51)
[2021-06-19] MEDS: DOXYCYCLINE HYCLATE 100 MG CAPSULE PO SCH ×2 (10:51→17:40)
[2021-06-19] MEDS: PANTOPRAZOLE 40 MG TABLET PO SCH (10:51)
[2021-06-19] MEDS: COLLAGENASE CLOSTRIDIUM HIST. 30 GRAMS TUBE TP SCH (15:15)
[2021-06-19] MEDS ORDERED: INSULIN (NOVOLOG) ASPART 100 UNITS/ML 10ML VIAL ONE (20:54)
[2021-06-19] MEDS: ATORVASTATIN CA 40 MG TABLET (FP) PO SCH (21:08)
[2021-06-19 22:37] VITALS: PULSE 71
[2021-06-20] MEDS: INSULIN SLIDING SCALE (NOVOLOG) 1 VIAL SQ SCH (06:01)
[2021-06-20] MEDS: INSULIN (LEVEMIR) 100 UNITS/ML UNITS SQ SCH (06:04)
[2021-06-20] MEDS ORDERED: INSULIN (NOVOLOG) ASPART 100 UNITS/ML 10ML VIAL ONE (06:07)
[2021-06-20 06:21] VITALS: BP 133/96; TEMP 98.7
[2021-06-20] MEDS: amLODIPine BESYLATE 5 MG TABLET (FP) PO SCH (09:04)
[2021-06-20] MEDS: DOXYCYCLINE HYCLATE 100 MG CAPSULE PO SCH (09:05)
[2021-06-20] MEDS: PANTOPRAZOLE 40 MG TABLET PO SCH (09:05)
== END 2021-06-20 10:11 | disposition home or self-care (01) | DRG 603 ==
LOC: JER 13:36 → JERBED 16:09 → J8W 23:27
PROVIDERS: ADMIT Internal Medicine; ATTEND Internal Medicine
PROC: 0JBR0ZX Excision of Left Foot Subcutaneous Tissue and Fascia, Open Approach, Diagnostic (ICD-10-PCS; principal; 2021-06-17 10:30)
DX: L03.116 Cellulitis of left lower limb (principal); L97.429 Non-pressure chronic ulcer of left heel and midfoot with unspecified severity; A52.16 Charcot's arthropathy (tabetic); E78.5 Hyperlipidemia, unspecified; Z79.4 Long term (current) use of insulin; E11.65 Type 2 diabetes mellitus with hyperglycemia; D63.8 Anemia in other chronic diseases classified elsewhere; E11.22 Type 2 diabetes mellitus with diabetic chronic kidney disease; I12.9 Hypertensive chronic kidney disease with stage 1 through stage 4 chronic kidney disease, or unspecified chronic kidney disease; N18.9 Chronic kidney disease, unspecified; E11.40 Type 2 diabetes mellitus with diabetic neuropathy, unspecified; E11.319 Type 2 diabetes mellitus with unspecified diabetic retinopathy without macular edema; E11.621 Type 2 diabetes mellitus with foot ulcer; R22.42 Localized swelling, mass and lump, left lower limb
CPT/HCPCS: 36415; 73610-TC-LT-FY; 73610-TC-RT-FY; 73630-TC-LT; 73630-TC-RT-FY; 80048; 80053; 82962; 83735; 84100; 85025; 85027; 85610; 85651; 85730; 86850; 86900; 86901; 87070; 87186; 87205; 88305-TC; 93005; 93010; 94760; 99285-25; C9803; G0463-25; J1644; U0003; U0005

== ENCOUNTER 2022-01-28 14:12 | Inpatient (IN) | payer OTHER, BC ==
[2022-01-28 14:48] VITALS: BMI 26.6
[2022-01-28] MEDS ORDERED: PIPERACILLIN/TAZOB 4.5 GM 4.5 GM in DEXTROSE 5%-WATER 100 ML IVPB ONE (15:35)
[2022-01-28] MEDS ORDERED: VANCOMYCIN 1 GM in D5W (PRE-DOCKED) 1,000 MG/250 ML IVPB ONE (15:35)
[2022-01-28] MEDS ORDERED: VANCOMYCIN/WATER FOR INJ (PEG) 1,000 MG/200 ML BAG IVPB ONE (15:46)
[2022-01-28] MEDS ORDERED: PIPERACILLIN/TAZOB 4.5 GM 4.5 GM/100 ML BAG IVPB ONE (15:46)
[2022-01-28 16:30] LABS: BASO % 0.3 % (0-2.0); EOS % 0.8 % (0-4.5); HEMATOCRIT 33.8 % (35.4-49); HEMOGLOBIN 11.6 GM/dL (11.7-16.9); LYMPH % 4.3 % (8-40); MCH 32.1 pg (25.7-33.7); MCHC 34.2 g/dl (32.0-35.9); MEAN CELL VOLUME 93.7 fl (80-96); MEAN PLT VOLUME 7.5 fl (7.5-11.1); MONO % 8.3 % (3.8-10.2); NEUT % 86.3 % (42.8-82.8); PLATELET COUNT 305 10^3/uL (134-434); RBC 3.61 M/mm3 (4.00-5.60); RDW 13.2 % (11.9-15.9); WHITE BLOOD COUNT 8.8 K/mm3 (4.0-10.0)
[2022-01-28 16:37] LABS: INR 1.02 (0.83-1.09); PROTHROMBIN TIME (PATIENT) 11.7 SEC (9.7-13.0)
[2022-01-28 16:40] LABS: ACTIVATED PTT 27.3 SECONDS (25.2-36.5)
[2022-01-28] MEDS ORDERED: ACETAMINOPHEN 1000 MG/100 ML BAG IVPB ONE (16:45)
[2022-01-28 16:48] LABS: CALCIUM 9.1 mg/dL (8.5-10.1)
[2022-01-28 16:49] LABS: ALBUMIN 3.4 g/dl (3.4-5.0)
[2022-01-28 16:52] LABS: CREATININE 2.2 mg/dL (0.55-1.3)
[2022-01-28 16:53] LABS: BILIRUBIN,TOTAL 0.7 mg/dL (0.2-1)
[2022-01-28 16:54] LABS: TOT PROT 7.5 g/dl (6.4-8.2)
[2022-01-28] MEDS ORDERED: ACETAMINOPHEN INJECTION 100 ML IVPB ONE (16:56)
[2022-01-28] MEDS ORDERED: SODIUM CHLORIDE 2,381 ML IV ONE (17:01)
[2022-01-28] MEDS: PIPERACILLIN/TAZOB 3.375 GM 3.375 GM in DEXTROSE 5%-WATER - 50 ML IVPB SCH (17:03)
[2022-01-28 18:36] LABS: BLOOD UREA NITROGEN 24.5 mg/dL (7-18); CALCIUM 8.4 mg/dL (8.5-10.1)
[2022-01-28 18:39] LABS: CREATININE 2.2 mg/dL (0.55-1.3)
[2022-01-28] MEDS ORDERED: HEPARIN NA (PORCINE) 5,000 UNITS/ML 1ML VIAL SQ SCH (22:00)
[2022-01-28] MEDS: INSULIN (LEVEMIR) 100 UNITS/ML UNITS SQ SCH (23:47)
[2022-01-28] MEDS: INSULIN SLIDING SCALE (NOVOLOG) 1 VIAL SQ SCH (23:47)
[2022-01-29] MEDS: CLINDAMYCIN 600MG PREMIX IVPB 600 MG/50 ML BAG IVPB SCH ×4 (00:13→17:24)
[2022-01-29] MEDS ORDERED: CLINDAMYCIN 600MG PREMIX IVPB 600 MG/50 ML BAG IVPB ONE ×2 (00:14→09:50)
[2022-01-29] MEDS: PIPERACILLIN/TAZOB 3.375 GM 3.375 GM in DEXTROSE 5%-WATER - 50 ML IVPB SCH ×3 (02:21→17:24)
[2022-01-29] MEDS ORDERED: PIPERACILLIN/TAZOB 3.375 GM 3.375 GM/50 ML BAG IVPB ONE ×4 (02:23→17:27)
[2022-01-29] MEDS: INSULIN SLIDING SCALE (NOVOLOG) 1 VIAL SQ SCH ×4 (06:47→21:52)
[2022-01-29 08:06] LABS: BASO % 0.4 % (0-2.0); EOS % 1.7 % (0-4.5); HEMATOCRIT 28.9 % (35.4-49); LYMPH % 6.7 % (8-40); MCHC 34.6 g/dl (32.0-35.9); MEAN CELL VOLUME 92.5 fl (80-96); MEAN PLT VOLUME 7.2 fl (7.5-11.1); MONO % 9.3 % (3.8-10.2); NEUT % 81.9 % (42.8-82.8); PLATELET COUNT 280 10^3/uL (134-434); RBC 3.12 M/mm3 (4.00-5.60); RDW 13.6 % (11.9-15.9); WHITE BLOOD COUNT 6.9 K/mm3 (4.0-10.0)
[2022-01-29 08:16] LABS: BLOOD UREA NITROGEN 24.4 mg/dL (7-18); CALCIUM 8.1 mg/dL (8.5-10.1); MAGNESIUM 2.1 mg/dL (1.8-2.4)
[2022-01-29 08:20] LABS: CREATININE 2.1 mg/dL (0.55-1.3); PHOSPHOROUS 2.8 mg/dL (2.5-4.9)
[2022-01-29] MEDS: INSULIN (LEVEMIR) 100 UNITS/ML UNITS SQ SCH ×2 (10:03→22:00)
[2022-01-29] MEDS: SODIUM CHLORIDE 0.45% 1,000 ML IV SCH (17:24)
[2022-01-29] MEDS ORDERED: HEPARIN NA (PORCINE) 5,000 UNITS/ML 1ML VIAL ONE (21:54)
[2022-01-29] MEDS: HEPARIN NA (PORCINE) 5,000 UNITS/ML 1ML VIAL SQ SCH (22:00)
[2022-01-29 22:59] LABS: EPI CELLS 1 /uL (0-25.1); HYALINE CASTS 0 /uL (0-3.1); PH,URINE 6.5 (5.0-8.0); URINE APPEARANCE CLEAR; URINE BACTERIA 1 /uL (0-1359); URINE BILIRUBIN NEGATIVE (NEGATIVE); URINE COLOR YELLOW; URINE GLUCOSE (UA) TRACE (NEGATIVE); URINE KETONE NEGATIVE (NEGATIVE); URINE LEUK ESTERASE NEGATIVE (NEGATIVE); URINE NITRITE NEGATIVE (NEGATIVE); URINE PROTEIN 1+ (NEGATIVE); URINE RBC 13 /uL (0-23.9); URINE UROBILINOGEN 0.2 mg/dL (0.2-1.0); URINE WBC 1 /uL (0-25.8)
[2022-01-30] MEDS: CLINDAMYCIN 600MG PREMIX IVPB 600 MG/50 ML BAG IVPB SCH ×3 (02:17→18:07)
[2022-01-30] MEDS: SODIUM CHLORIDE 0.45% 1,000 ML IV SCH (02:19)
[2022-01-30] MEDS: PIPERACILLIN/TAZOB 3.375 GM 3.375 GM in DEXTROSE 5%-WATER - 50 ML IVPB SCH ×3 (03:01→18:08)
[2022-01-30] MEDS: INSULIN SLIDING SCALE (NOVOLOG) 1 VIAL SQ SCH ×4 (06:34→22:27)
[2022-01-30] MEDS: amLODIPine BESYLATE 5 MG TABLET (FP) PO SCH (09:02)
[2022-01-30] MEDS: HEPARIN NA (PORCINE) 5,000 UNITS/ML 1ML VIAL SQ SCH ×2 (09:05→22:20)
[2022-01-30] MEDS: INSULIN (LEVEMIR) 100 UNITS/ML UNITS SQ SCH ×2 (13:11→22:20)
[2022-01-30 13:27] LABS: BASO % 0.3 % (0-2.0); EOS % 3.1 % (0-4.5); HEMATOCRIT 30.3 % (35.4-49); HEMOGLOBIN 10.3 GM/dL (11.7-16.9); LYMPH % 12.3 % (8-40); MCH 31.7 pg (25.7-33.7); MEAN CELL VOLUME 93.2 fl (80-96); MEAN PLT VOLUME 7.4 fl (7.5-11.1); MONO % 9.2 % (3.8-10.2); NEUT % 75.1 % (42.8-82.8); PLATELET COUNT 282 10^3/uL (134-434); RBC 3.25 M/mm3 (4.00-5.60); RDW 12.8 % (11.9-15.9); WHITE BLOOD COUNT 5.5 K/mm3 (4.0-10.0)
[2022-01-30 13:44] LABS: CALCIUM 8.5 mg/dL (8.5-10.1)
[2022-01-30 13:45] LABS: ALBUMIN 2.8 g/dl (3.4-5.0); BLOOD UREA NITROGEN 14.5 mg/dL (7-18)
[2022-01-30 13:49] LABS: TOT PROT 6.5 g/dl (6.4-8.2)
[2022-01-30 13:50] LABS: BILIRUBIN,TOTAL 0.4 mg/dL (0.2-1)
[2022-01-30] MEDS ORDERED: SODIUM CHLORIDE 0.45% 1,000 ML IV SCH (14:03)
[2022-01-30] MEDS: COLLAGENASE CLOSTRIDIUM HIST. 30 GRAMS TUBE TP SCH (14:54)
[2022-01-30] MEDS: PANTOPRAZOLE 40 MG TABLET PO SCH (19:13)
[2022-01-30] MEDS ORDERED: INSULIN (NOVOLOG) ASPART 100 UNITS/ML 10ML VIAL ONE (21:41)
[2022-01-30] MEDS: ATORVASTATIN CA 40 MG TABLET (FP) PO SCH (22:20)
[2022-01-31] MEDS: PIPERACILLIN/TAZOB 3.375 GM 3.375 GM in DEXTROSE 5%-WATER - 50 ML IVPB SCH ×3 (02:50→18:09)
[2022-01-31] MEDS: CLINDAMYCIN 600MG PREMIX IVPB 600 MG/50 ML BAG IVPB SCH ×3 (02:50→18:09)
[2022-01-31] MEDS: INSULIN SLIDING SCALE (NOVOLOG) 1 VIAL SQ SCH ×4 (06:45→21:52)
[2022-01-31] MEDS: PANTOPRAZOLE 40 MG TABLET PO SCH (09:43)
[2022-01-31] MEDS: amLODIPine BESYLATE 5 MG TABLET (FP) PO SCH (09:43)
[2022-01-31] MEDS: HEPARIN NA (PORCINE) 5,000 UNITS/ML 1ML VIAL SQ SCH ×2 (09:43→21:42)
[2022-01-31 10:33] LABS: BASO % 0.4 % (0-2.0); HEMATOCRIT 32.3 % (35.4-49); LYMPH % 13.9 % (8-40); MCH 31.5 pg (25.7-33.7); MEAN CELL VOLUME 92.7 fl (80-96); MEAN PLT VOLUME 7.2 fl (7.5-11.1); NEUT % 74.7 % (42.8-82.8); PLATELET COUNT 328 10^3/uL (134-434); RBC 3.49 M/mm3 (4.00-5.60); RDW 12.9 % (11.9-15.9); WHITE BLOOD COUNT 5.5 K/mm3 (4.0-10.0)
[2022-01-31 10:53] LABS: BLOOD UREA NITROGEN 12.9 mg/dL (7-18)
[2022-01-31 10:54] LABS: CALCIUM 8.9 mg/dL (8.5-10.1); MAGNESIUM 1.9 mg/dL (1.8-2.4)
[2022-01-31 10:58] LABS: TOT PROT 6.8 g/dl (6.4-8.2)
[2022-01-31 10:59] LABS: BILIRUBIN,TOTAL 0.6 mg/dL (0.2-1)
[2022-01-31] MEDS: INSULIN (LEVEMIR) 100 UNITS/ML UNITS SQ SCH ×2 (11:45→21:43)
[2022-01-31] MEDS: SODIUM CHLORIDE 0.45% 1,000 ML IV SCH (18:10)
[2022-01-31] MEDS: COLLAGENASE CLOSTRIDIUM HIST. 30 GRAMS TUBE TP SCH (18:10)
[2022-01-31] MEDS: ATORVASTATIN CA 40 MG TABLET (FP) PO SCH (21:42)
[2022-02-01] MEDS: CLINDAMYCIN 600MG PREMIX IVPB 600 MG/50 ML BAG IVPB SCH ×2 (02:00→11:21)
[2022-02-01] MEDS: PIPERACILLIN/TAZOB 3.375 GM 3.375 GM in DEXTROSE 5%-WATER - 50 ML IVPB SCH ×2 (02:00→11:19)
[2022-02-01] MEDS: ACETAMINOPHEN 325 MG TABLET (FP) PO PRN ×2 (05:46→20:21)
[2022-02-01] MEDS: INSULIN SLIDING SCALE (NOVOLOG) 1 VIAL SQ SCH ×4 (06:22→23:48)
[2022-02-01] MEDS: HEPARIN NA (PORCINE) 5,000 UNITS/ML 1ML VIAL SQ SCH ×2 (11:21→23:43)
[2022-02-01] MEDS: amLODIPine BESYLATE 5 MG TABLET (FP) PO SCH (11:22)
[2022-02-01] MEDS: COLLAGENASE CLOSTRIDIUM HIST. 30 GRAMS TUBE TP SCH (11:22)
[2022-02-01] MEDS: PANTOPRAZOLE 40 MG TABLET PO SCH (11:22)
[2022-02-01 11:30] LABS: BASO % 0.4 % (0-2.0); EOS % 3.1 % (0-4.5); HEMATOCRIT 29.6 % (35.4-49); HEMOGLOBIN 10.2 GM/dL (11.7-16.9); LYMPH % 14.6 % (8-40); MCH 31.7 pg (25.7-33.7); MCHC 34.5 g/dl (32.0-35.9); MEAN CELL VOLUME 91.9 fl (80-96); MEAN PLT VOLUME 7.4 fl (7.5-11.1); MONO % 9.2 % (3.8-10.2); NEUT % 72.7 % (42.8-82.8); PLATELET COUNT 295 10^3/uL (134-434); RBC 3.22 M/mm3 (4.00-5.60); RDW 12.7 % (11.9-15.9); WHITE BLOOD COUNT 5.2 K/mm3 (4.0-10.0)
[2022-02-01 11:41] LABS: ALBUMIN 2.9 g/dl (3.4-5.0); BLOOD UREA NITROGEN 15.3 mg/dL (7-18); CALCIUM 8.7 mg/dL (8.5-10.1); MAGNESIUM 1.9 mg/dL (1.8-2.4)
[2022-02-01 11:44] LABS: CREATININE 2.2 mg/dL (0.55-1.3)
[2022-02-01 11:46] LABS: BILIRUBIN,TOTAL 0.4 mg/dL (0.2-1); TOT PROT 6.4 g/dl (6.4-8.2)
[2022-02-01] MEDS: INSULIN (LEVEMIR) 100 UNITS/ML UNITS SQ SCH ×2 (12:33→23:47)
[2022-02-01] MEDS: SODIUM CHLORIDE 0.45% 1,000 ML IV SCH (13:05)
[2022-02-01] MEDS: ERTAPENEM SODIUM 1 GM in SODIUM CHLORIDE 50 ML IVPB SCH (13:43)
[2022-02-01] MEDS: ATORVASTATIN CA 40 MG TABLET (FP) PO SCH (23:44)
[2022-02-02] MEDS: SODIUM CHLORIDE 0.45% 1,000 ML IV SCH (04:38)
[2022-02-02] MEDS: INSULIN SLIDING SCALE (NOVOLOG) 1 VIAL SQ SCH ×2 (07:06→12:23)
[2022-02-02 07:28] VITALS: RESP 20
[2022-02-02] MEDS: PANTOPRAZOLE 40 MG TABLET PO SCH (09:56)
[2022-02-02] MEDS: amLODIPine BESYLATE 5 MG TABLET (FP) PO SCH (09:56)
[2022-02-02 10:55] LABS: BASO % 0.3 % (0-2.0); EOS % 2.4 % (0-4.5); HEMATOCRIT 30.5 % (35.4-49); HEMOGLOBIN 10.6 GM/dL (11.7-16.9); LYMPH % 12.4 % (8-40); MCH 31.9 pg (25.7-33.7); MCHC 34.6 g/dl (32.0-35.9); MEAN PLT VOLUME 6.8 fl (7.5-11.1); MONO % 7.6 % (3.8-10.2); NEUT % 77.3 % (42.8-82.8); PLATELET COUNT 271 10^3/uL (134-434); RBC 3.32 M/mm3 (4.00-5.60); RDW 12.8 % (11.9-15.9); WHITE BLOOD COUNT 5.9 K/mm3 (4.0-10.0)
[2022-02-02 11:38] LABS: ALBUMIN 2.9 g/dl (3.4-5.0); BLOOD UREA NITROGEN 15.6 mg/dL (7-18); CALCIUM 8.7 mg/dL (8.5-10.1)
[2022-02-02 11:41] LABS: CREATININE 1.9 mg/dL (0.55-1.3)
[2022-02-02 11:43] LABS: BILIRUBIN,TOTAL 0.6 mg/dL (0.2-1); TOT PROT 6.4 g/dl (6.4-8.2)
[2022-02-02] MEDS: INSULIN (LEVEMIR) 100 UNITS/ML UNITS SQ SCH (12:25)
[2022-02-02] MEDS: HEPARIN NA (PORCINE) 5,000 UNITS/ML 1ML VIAL SQ SCH (12:25)
[2022-02-02] MEDS: ERTAPENEM SODIUM 1 GM in SODIUM CHLORIDE 50 ML IVPB SCH (12:29)
[2022-02-02 15:42] VITALS: TEMP 98.6
[2022-02-02 15:49] VITALS: BP 154/97; PULSE 78
== END 2022-02-02 16:03 | disposition home health service (06) | DRG 872 ==
LOC: JER 14:12 → JERBED 01-29 03:05 → J8W 01-30 02:04
PROVIDERS: ADMIT Internal Medicine; ATTEND Nurse Practitioner Family
PROC: 02HV33Z Insertion of Infusion Device into Superior Vena Cava, Percutaneous Approach (ICD-10-PCS; principal; 2022-02-02)
PROC: B548ZZA Ultrasonography of Superior Vena Cava, Guidance (ICD-10-PCS; 2022-02-02)
DX: A41.9 Sepsis, unspecified organism (principal); L03.116 Cellulitis of left lower limb; N17.9 Acute kidney failure, unspecified; E11.610 Type 2 diabetes mellitus with diabetic neuropathic arthropathy; E11.621 Type 2 diabetes mellitus with foot ulcer; E78.5 Hyperlipidemia, unspecified; N18.9 Chronic kidney disease, unspecified; I13.10 Hypertensive heart and chronic kidney disease without heart failure, with stage 1 through stage 4 chronic kidney disease, or unspecified chronic kidney disease; D49.2 Neoplasm of unspecified behavior of bone, soft tissue, and skin; E11.65 Type 2 diabetes mellitus with hyperglycemia
CPT/HCPCS: 0241U-QW; 36415; 36569; 73700-TC-RT; 80048; 80053; 81003; 82436; 82570; 82962; 83036; 83605; 83735; 84100; 84133; 84300; 85025; 85610; 85651; 85730; 86140; 86850; 86900; 86901; 87040; 87070; 87076; 87077; 87086; 87186; 87205; 93005; 93010; 99285-25; G0463-25; J1644

== ENCOUNTER 2022-03-18 11:54 | Emergency (ER) | payer OTHER, BC | END 2022-03-18 15:55 | disposition left against medical advice (07) | LOC: JER 11:54 | DX: R00.0 Tachycardia, unspecified (principal) | CPT/HCPCS: 82962; 93005; 93010; 99283-25; G0463-25 ==

== ENCOUNTER 2022-03-18 21:02 | Inpatient (IN) | payer OTHER, BC ==
[2022-03-18 22:05] LABS: BASO % 0.2 % (0-2.0); EOS % 0.7 % (0-4.5); HEMATOCRIT 38.8 % (35.4-49); HEMOGLOBIN 12.9 GM/dL (11.7-16.9); LYMPH % 8.1 % (8-40); MCH 31.4 pg (25.7-33.7); MCHC 33.3 g/dl (32.0-35.9); MEAN CELL VOLUME 94.2 fl (80-96); MEAN PLT VOLUME 6.9 fl (7.5-11.1); MONO % 8.1 % (3.8-10.2); NEUT % 82.9 % (42.8-82.8); PLATELET COUNT 249 10^3/uL (134-434); RBC 4.12 M/mm3 (4.00-5.60); RDW 15.1 % (11.9-15.9); WHITE BLOOD COUNT 8.3 K/mm3 (4.0-10.0)
[2022-03-18 22:14] LABS: INR 1.01 (0.83-1.09); PROTHROMBIN TIME (PATIENT) 11.6 SEC (9.7-13.0)
[2022-03-18 22:25] LABS: ALBUMIN 3.5 g/dl (3.4-5.0); BLOOD UREA NITROGEN 19.9 mg/dL (7-18); CALCIUM 9.2 mg/dL (8.5-10.1); MAGNESIUM 2.3 mg/dL (1.8-2.4)
[2022-03-18 22:28] LABS: CREATININE 2.3 mg/dL (0.55-1.3)
[2022-03-18 22:30] LABS: BILIRUBIN,TOTAL 0.6 mg/dL (0.2-1); TOT PROT 7.9 g/dl (6.4-8.2)
[2022-03-18] MEDS ORDERED: LACTATED RINGERS SOLUTION 1000 ML INFUS.BAG IV ONE (23:13)
[2022-03-18] MEDS ORDERED: SODIUM CHLORIDE 0.9% 500 ML INFUS.BAG IV ONE (23:13)
[2022-03-19] MEDS ORDERED: amLODIPine BESYLATE 5 MG TABLET (FP) PO SCH ×2 (00:09→08:06)
[2022-03-19] MEDS ORDERED: amLODIPine BESYLATE 5 MG TABLET (FP) ONE (01:40)
[2022-03-19 04:48] VITALS: BMI 27.5
[2022-03-19] MEDS ORDERED: MEROPENEM 1 GM in DEXTROSE 5%-WATER 100 ML IVPB SCH ×2 (05:15→07:00)
[2022-03-19] MEDS ORDERED: amLODIPine BESYLATE 5 MG TABLET (FP) PO ONE (06:45)
[2022-03-19] MEDS: INSULIN SLIDING SCALE (NOVOLOG) 1 VIAL SQ SCH ×4 (06:48→21:18)
[2022-03-19] MEDS: HEPARIN NA (PORCINE) 5,000 UNITS/ML 1ML VIAL SQ SCH ×3 (06:48→21:13)
[2022-03-19] MEDS ORDERED: ONDANSETRON 4 MG TABLET PO ONE (07:00)
[2022-03-19] MEDS ORDERED: VANCOMYCIN PREMIX 1.5 GM 1,500 MG/300 ML BAG IVPB ONE (07:00)
[2022-03-19] MEDS ORDERED: metoPROLOL SUCCINATE 25 MG TAB.SR.24H (FP) PO ONE (08:08)
[2022-03-19 09:34] LABS: BASO % 0.3 % (0-2.0); EOS % 0.6 % (0-4.5); HEMATOCRIT 34.3 % (35.4-49); LYMPH % 5.3 % (8-40); MCH 32.6 pg (25.7-33.7); MEAN CELL VOLUME 93.1 fl (80-96); MEAN PLT VOLUME 6.8 fl (7.5-11.1); MONO % 6.3 % (3.8-10.2); NEUT % 87.5 % (42.8-82.8); PLATELET COUNT 217 10^3/uL (134-434); RBC 3.68 M/mm3 (4.00-5.60); RDW 14.7 % (11.9-15.9)
[2022-03-19] MEDS ORDERED: CEFTRIAXONE 1 GM in DEXTROSE 5%-WATER - 50 ML IVPB ONE (10:04)
[2022-03-19 10:37] LABS: CHOLESTEROL 175 mg/dL (50-200); TRIGLYCERIDES 122 mg/dL (0-150)
[2022-03-19 10:38] LABS: LDL CHOLESTEROL (ONLY SJRH) 109 mg/dL (5-100)
[2022-03-19 10:40] LABS: HDL CHOLESTEROL 51 mg/dL (40-60)
[2022-03-19 10:54] LABS: ALBUMIN 3.4 g/dl (3.4-5.0); CALCIUM 9.1 mg/dL (8.5-10.1)
[2022-03-19 10:55] LABS: BLOOD UREA NITROGEN 18.2 mg/dL (7-18)
[2022-03-19 10:57] LABS: CREATININE 2.1 mg/dL (0.55-1.3)
[2022-03-19 10:58] LABS: PHOSPHOROUS 1.8 mg/dL (2.5-4.9)
[2022-03-19 10:59] LABS: BILIRUBIN,TOTAL 0.9 mg/dL (0.2-1); TOT PROT 7.6 g/dl (6.4-8.2)
[2022-03-19] MEDS: COLLAGENASE CLOSTRIDIUM HIST. 30 GRAMS TUBE TP SCH (12:05)
[2022-03-19] MEDS ORDERED: MAGNESIUM SULF 50% (8.12 MEQ/2 ML-1 GM VIAL) IVPB ONE (12:52)
[2022-03-19] MEDS ORDERED: SODIUM PHOSPHATE - 30 MM in SODIUM CHLORIDE 250 ML IVPB ONE (17:17)
[2022-03-19] MEDS ORDERED: PANTOPRAZOLE 40 MG TABLET PO ONE (18:26)
[2022-03-19] MEDS: CARVEDILOL 3.125 MG TABLET (FP) PO SCH (21:15)
[2022-03-20] MEDS ORDERED: TRIMETHOBENZAMIDE HCL 200MG/2ML INJ IM ONE (02:27)
[2022-03-20] MEDS: ACETAMINOPHEN 325 MG TABLET (FP) PO PRN ×2 (02:43→15:37)
[2022-03-20] MEDS: HEPARIN NA (PORCINE) 5,000 UNITS/ML 1ML VIAL SQ SCH ×3 (06:06→21:01)
[2022-03-20] MEDS: INSULIN SLIDING SCALE (NOVOLOG) 1 VIAL SQ SCH ×4 (06:09→21:02)
[2022-03-20] MEDS ORDERED: VANCOMYCIN/WATER FOR INJ (PEG) 750 MG/150 ML BAG IVPB SCH ×2 (07:00)
[2022-03-20] MEDS: amLODIPine BESYLATE 10 MG TABLET (FP) PO SCH (09:42)
[2022-03-20] MEDS: PANTOPRAZOLE 40 MG TABLET PO SCH (09:42)
[2022-03-20] MEDS: CARVEDILOL 3.125 MG TABLET (FP) PO SCH ×2 (09:42→21:02)
[2022-03-20 09:53] LABS: HEMATOCRIT 33.1 % (35.4-49); HEMOGLOBIN 11.2 GM/dL (11.7-16.9); MCH 31.5 pg (25.7-33.7); MCHC 33.7 g/dl (32.0-35.9); MEAN CELL VOLUME 93.4 fl (80-96); MEAN PLT VOLUME 6.9 fl (7.5-11.1); PLATELET COUNT 179 10^3/uL (134-434); RBC 3.54 M/mm3 (4.00-5.60); RDW 14.7 % (11.9-15.9)
[2022-03-20] MEDS ORDERED: CEFTRIAXONE 1 GM in DEXTROSE 5%-WATER - 50 ML IVPB SCH (10:00)
[2022-03-20] MEDS ORDERED: metoPROLOL SUCCINATE 25 MG TAB.SR.24H (FP) PO SCH (10:00)
[2022-03-20 10:13] LABS: ALBUMIN 2.9 g/dl (3.4-5.0); CALCIUM 8.7 mg/dL (8.5-10.1)
[2022-03-20 10:14] LABS: BLOOD UREA NITROGEN 23.8 mg/dL (7-18); MAGNESIUM 2.4 mg/dL (1.8-2.4)
[2022-03-20 10:17] LABS: CREATININE 2.3 mg/dL (0.55-1.3); PHOSPHOROUS 2.8 mg/dL (2.5-4.9)
[2022-03-20 10:18] LABS: BILIRUBIN,TOTAL 0.5 mg/dL (0.2-1); TOT PROT 6.5 g/dl (6.4-8.2)
[2022-03-20] MEDS: COLLAGENASE CLOSTRIDIUM HIST. 30 GRAMS TUBE TP SCH (10:20)
[2022-03-20] MEDS: MEROPENEM 1 GM in DEXTROSE 5%-WATER 100 ML IVPB SCH (18:38)
[2022-03-21] MEDS: HEPARIN NA (PORCINE) 5,000 UNITS/ML 1ML VIAL SQ SCH ×3 (06:05→21:45)
[2022-03-21] MEDS: MEROPENEM 1 GM in DEXTROSE 5%-WATER 100 ML IVPB SCH ×2 (06:05→16:38)
[2022-03-21] MEDS: INSULIN SLIDING SCALE (NOVOLOG) 1 VIAL SQ SCH ×4 (06:12→21:44)
[2022-03-21 09:42] LABS: HEMATOCRIT 34.9 % (35.4-49); HEMOGLOBIN 11.8 GM/dL (11.7-16.9); MCH 31.5 pg (25.7-33.7); MCHC 33.8 g/dl (32.0-35.9); MEAN PLT VOLUME 7.4 fl (7.5-11.1); PLATELET COUNT 194 10^3/uL (134-434); RBC 3.75 M/mm3 (4.00-5.60); RDW 14.7 % (11.9-15.9)
[2022-03-21 09:55] LABS: CALCIUM 8.9 mg/dL (8.5-10.1)
[2022-03-21 09:56] LABS: BLOOD UREA NITROGEN 23.5 mg/dL (7-18); MAGNESIUM 2.3 mg/dL (1.8-2.4)
[2022-03-21 09:59] LABS: PHOSPHOROUS 2.4 mg/dL (2.5-4.9)
[2022-03-21 10:00] LABS: BILIRUBIN,TOTAL 0.5 mg/dL (0.2-1); TOT PROT 7.1 g/dl (6.4-8.2)
[2022-03-21] MEDS: CARVEDILOL 3.125 MG TABLET (FP) PO SCH ×2 (10:19→21:44)
[2022-03-21] MEDS: amLODIPine BESYLATE 10 MG TABLET (FP) PO SCH (10:19)
[2022-03-21] MEDS: COLLAGENASE CLOSTRIDIUM HIST. 30 GRAMS TUBE TP SCH (10:19)
[2022-03-21] MEDS: PANTOPRAZOLE 40 MG TABLET PO SCH (10:19)
[2022-03-21] MEDS ORDERED: NAPH,MB-DB/K PH,MBDB POWDER PACKET PO ONE ×2 (12:00→16:00)
[2022-03-21] MEDS ORDERED: PIPERACILLIN/TAZOB 3.375 GM 3.375 GM in DEXTROSE 5%-WATER - 50 ML IVPB SCH (18:00)
[2022-03-22] MEDS: PIPERACILLIN/TAZOB 3.375 GM 3.375 GM in DEXTROSE 5%-WATER - 50 ML IVPB SCH ×3 (06:37→21:32)
[2022-03-22] MEDS: HEPARIN NA (PORCINE) 5,000 UNITS/ML 1ML VIAL SQ SCH ×3 (06:42→21:32)
[2022-03-22] MEDS: INSULIN SLIDING SCALE (NOVOLOG) 1 VIAL SQ SCH ×4 (06:42→21:39)
[2022-03-22 09:30] LABS: HEMATOCRIT 33.1 % (35.4-49); HEMOGLOBIN 11.2 GM/dL (11.7-16.9); MCH 31.5 pg (25.7-33.7); MEAN CELL VOLUME 92.7 fl (80-96); MEAN PLT VOLUME 7.4 fl (7.5-11.1); PLATELET COUNT 210 10^3/uL (134-434); RBC 3.57 M/mm3 (4.00-5.60); RDW 14.4 % (11.9-15.9); WHITE BLOOD COUNT 5.4 K/mm3 (4.0-10.0)
[2022-03-22 10:06] LABS: ALBUMIN 3.1 g/dl (3.4-5.0); BLOOD UREA NITROGEN 20.9 mg/dL (7-18); MAGNESIUM 2.2 mg/dL (1.8-2.4)
[2022-03-22 10:09] LABS: CREATININE 1.8 mg/dL (0.55-1.3); PHOSPHOROUS 2.4 mg/dL (2.5-4.9)
[2022-03-22 10:10] LABS: BILIRUBIN,TOTAL 0.8 mg/dL (0.2-1)
[2022-03-22] MEDS: amLODIPine BESYLATE 10 MG TABLET (FP) PO SCH (10:22)
[2022-03-22] MEDS: PANTOPRAZOLE 40 MG TABLET PO SCH (10:22)
[2022-03-22] MEDS: CARVEDILOL 3.125 MG TABLET (FP) PO SCH ×2 (10:22→21:32)
[2022-03-22] MEDS ORDERED: SODIUM PHOSPHATE - 20 MM in SODIUM CHLORIDE 250 ML IVPB ONE (12:32)
[2022-03-22] MEDS: COLLAGENASE CLOSTRIDIUM HIST. 30 GRAMS TUBE TP SCH (13:10)
[2022-03-22 19:01] LABS: EPI CELLS 3 /uL (0-25.1); HYALINE CASTS 0 /uL (0-3.1); URINE APPEARANCE CLEAR; URINE BACTERIA 1 /uL (0-1359); URINE BILIRUBIN NEGATIVE (NEGATIVE); URINE COLOR YELLOW; URINE GLUCOSE (UA) 1+ (NEGATIVE); URINE KETONE NEGATIVE (NEGATIVE); URINE LEUK ESTERASE NEGATIVE (NEGATIVE); URINE NITRITE NEGATIVE (NEGATIVE); URINE PROTEIN 2+ (NEGATIVE); URINE RBC 4 /uL (0-23.9); URINE UROBILINOGEN 0.2 mg/dL (0.2-1.0); URINE WBC 3 /uL (0-25.8)
[2022-03-23] MEDS: HEPARIN NA (PORCINE) 5,000 UNITS/ML 1ML VIAL SQ SCH ×3 (06:13→21:33)
[2022-03-23] MEDS: PIPERACILLIN/TAZOB 3.375 GM 3.375 GM in DEXTROSE 5%-WATER - 50 ML IVPB SCH ×3 (06:14→21:38)
[2022-03-23] MEDS: INSULIN SLIDING SCALE (NOVOLOG) 1 VIAL SQ SCH ×4 (06:24→21:38)
[2022-03-23 09:16] LABS: HEMATOCRIT 33.1 % (35.4-49); MCH 31.3 pg (25.7-33.7); MCHC 33.4 g/dl (32.0-35.9); MEAN CELL VOLUME 93.6 fl (80-96); PLATELET COUNT 217 10^3/uL (134-434); RBC 3.53 M/mm3 (4.00-5.60); RDW 14.5 % (11.9-15.9); WHITE BLOOD COUNT 5.4 K/mm3 (4.0-10.0)
[2022-03-23 09:30] LABS: CALCIUM 8.8 mg/dL (8.5-10.1)
[2022-03-23 09:31] LABS: BLOOD UREA NITROGEN 22.9 mg/dL (7-18); MAGNESIUM 2.1 mg/dL (1.8-2.4)
[2022-03-23 09:33] LABS: PHOSPHOROUS 3.3 mg/dL (2.5-4.9)
[2022-03-23 09:34] LABS: CREATININE 1.9 mg/dL (0.55-1.3)
[2022-03-23 09:35] LABS: BILIRUBIN,TOTAL 0.8 mg/dL (0.2-1); TOT PROT 6.5 g/dl (6.4-8.2)
[2022-03-23] MEDS: amLODIPine BESYLATE 10 MG TABLET (FP) PO SCH (10:30)
[2022-03-23] MEDS: PANTOPRAZOLE 40 MG TABLET PO SCH (10:30)
[2022-03-23] MEDS: CARVEDILOL 3.125 MG TABLET (FP) PO SCH ×2 (10:30→21:32)
[2022-03-23] MEDS: COLLAGENASE CLOSTRIDIUM HIST. 30 GRAMS TUBE TP SCH (14:50)
[2022-03-23] MEDS ORDERED: DEXTROSE 50%-WATER - 25 GM/50 ML VIAL IVPUSH PRN (16:08)
[2022-03-23] MEDS ORDERED: INSULIN (LEVEMIR) 100 UNITS/ML UNITS SQ SCH (22:00)
[2022-03-24] MEDS: HEPARIN NA (PORCINE) 5,000 UNITS/ML 1ML VIAL SQ SCH (06:20)
[2022-03-24] MEDS: PIPERACILLIN/TAZOB 3.375 GM 3.375 GM in DEXTROSE 5%-WATER - 50 ML IVPB SCH (06:20)
[2022-03-24] MEDS: INSULIN SLIDING SCALE (NOVOLOG) 1 VIAL SQ SCH ×2 (06:29→10:43)
[2022-03-24 08:13] LABS: HEMATOCRIT 32.8 % (35.4-49); HEMOGLOBIN 11.3 GM/dL (11.7-16.9); MCH 31.3 pg (25.7-33.7); MCHC 34.4 g/dl (32.0-35.9); MEAN CELL VOLUME 91.2 fl (80-96); MEAN PLT VOLUME 7.2 fl (7.5-11.1); PLATELET COUNT 240 10^3/uL (134-434); RDW 14.6 % (11.9-15.9); WHITE BLOOD COUNT 5.1 K/mm3 (4.0-10.0)
[2022-03-24 08:48] LABS: BLOOD UREA NITROGEN 20.9 mg/dL (7-18); MAGNESIUM 2.4 mg/dL (1.8-2.4)
[2022-03-24 08:51] LABS: CREATININE 1.9 mg/dL (0.55-1.3); PHOSPHOROUS 3.4 mg/dL (2.5-4.9)
[2022-03-24 08:52] LABS: TOT PROT 6.8 g/dl (6.4-8.2)
[2022-03-24 08:53] VITALS: BP 109/71; PULSE 78; RESP 18; TEMP 98.6
[2022-03-24 08:53] LABS: BILIRUBIN,TOTAL 0.6 mg/dL (0.2-1)
[2022-03-24] MEDS: amLODIPine BESYLATE 10 MG TABLET (FP) PO SCH (10:36)
[2022-03-24] MEDS: CARVEDILOL 3.125 MG TABLET (FP) PO SCH (10:36)
[2022-03-24] MEDS: PANTOPRAZOLE 40 MG TABLET PO SCH (10:36)
[2022-03-24] MEDS: COLLAGENASE CLOSTRIDIUM HIST. 30 GRAMS TUBE TP SCH (10:44)
== END 2022-03-24 13:54 | disposition home or self-care (01) | DRG 638 ==
LOC: JER 21:02 → JERBED 21:43 → J4S 03-19 04:41 → OBSVTOIN 03-21 14:50
PROVIDERS: ADMIT Internal Medicine; ATTEND Internal Medicine
DX: E11.621 Type 2 diabetes mellitus with foot ulcer (principal); I16.1 Hypertensive emergency; L97.909 Non-pressure chronic ulcer of unspecified part of unspecified lower leg with unspecified severity; I13.10 Hypertensive heart and chronic kidney disease without heart failure, with stage 1 through stage 4 chronic kidney disease, or unspecified chronic kidney disease; N18.9 Chronic kidney disease, unspecified; D48.7 Neoplasm of uncertain behavior of other specified sites; I16.0 Hypertensive urgency; E78.5 Hyperlipidemia, unspecified
CPT/HCPCS: 0241U-QW; 36415; 70450-TC; 71045-TC-FY; 72125-TC; 73630-TC-LT; 73718-TC-LT; 76775-TC; 80053; 80061; 81003; 82550; 82962; 83036; 83735; 84100; 84443; 84484; 85025; 85027; 85610; 85651; 85730; 86140; 87070; 87076; 87086; 87186; 87205; 93005; 93010; 93306-TC; 97116-GP; 97161-GP; 99283-25; 99285-25; G0378; G0463-25; J1644

== ENCOUNTER 2022-12-17 04:57 | Inpatient (IN) | payer OTHER, BC ==
[2022-12-17] MEDS ORDERED: DALBAVANCIN HCL 1,500 MG in DEXTROSE 5%-WATER - 500 ML IVPB ONE ×2 (05:29→07:00)
[2022-12-17] MEDS ORDERED: MEROPENEM 1 GM in DEXTROSE 5%-WATER 100 ML IVPB ONE (05:30)
[2022-12-17] MEDS ORDERED: MEROPENEM 1 GM VIAL (RESTRICTED TO ID) IVPB ONE (05:44)
[2022-12-17 06:02] LABS: BASO % 0.2 % (0-2.0); EOS % 2.5 % (0-4.5); HEMATOCRIT 29.9 % (35.4-49); HEMOGLOBIN 9.9 GM/dL (11.7-16.9); LYMPH % 11.4 % (8-40); MCH 27.6 pg (25.7-33.7); MCHC 33.1 g/dl (32.0-35.9); MEAN CELL VOLUME 83.4 fl (80-96); MONO % 6.9 % (3.8-10.2); PLATELET COUNT 274 10^3/uL (134-434); RBC 3.59 M/mm3 (4.00-5.60); WHITE BLOOD COUNT 8.1 K/mm3 (4.0-10.0)
[2022-12-17 06:09] LABS: PROTHROMBIN TIME (PATIENT) 11.6 SEC (9.7-13.0)
[2022-12-17 06:16] LABS: POTASSIUM 5.1 mmol/L (3.5-5.1)
[2022-12-17 06:19] LABS: ALBUMIN 3.4 g/dl (3.4-5.0); BLOOD UREA NITROGEN 37.1 mg/dL (7-18)
[2022-12-17 06:23] LABS: BILIRUBIN,TOTAL 0.3 mg/dL (0.2-1); TOT PROT 7.3 g/dl (6.4-8.2)
[2022-12-17 09:07] LABS: ERYTHROCYTE SEDIMENTATION RATE 64 mm/hr (0-20)
[2022-12-17] MEDS ORDERED: ACETAMINOPHEN 500 MG TABLET (FP) PO PRN (10:17)
[2022-12-17] MEDS ORDERED: MELATONIN 5 MG TABLETS PO PRN (10:18)
[2022-12-17] MEDS ORDERED: HEPARIN NA (PORCINE) 5,000 UNITS/ML 1ML VIAL ONE ×2 (10:22→22:08)
[2022-12-17] MEDS: HEPARIN NA (PORCINE) 5,000 UNITS/ML 1ML VIAL SQ SCH ×2 (10:36→22:20)
[2022-12-17] MEDS ORDERED: VALSARTAN 80 MG TABLET ONE (10:47)
[2022-12-17] MEDS ORDERED: amLODIPine BESYLATE 5 MG TABLET (FP) ONE (10:47)
[2022-12-17] MEDS: amLODIPine BESYLATE 5 MG TABLET (FP) PO SCH (10:54)
[2022-12-17] MEDS: VALSARTAN 80 MG TABLET PO SCH (10:54)
[2022-12-17] MEDS: INSULIN SLIDING SCALE (NOVOLOG) 1 VIAL SQ SCH ×3 (11:42→22:22)
[2022-12-17] MEDS ORDERED: GABAPENTIN 100 MG CAPSULE ONE ×2 (14:33→22:08)
[2022-12-17] MEDS: GABAPENTIN 100 MG CAPSULE PO SCH ×2 (14:45→22:21)
[2022-12-17] MEDS ORDERED: PIPERACILLIN/TAZOB 2.25 GM 2.25 GM in DEXTROSE 5%-WATER - 50 ML IVPB SCH (15:00)
[2022-12-17] MEDS ORDERED: PIPERACILLIN/TAZOB 2.25 GM 2.25 GM/50 ML BAG IVPB ONE ×2 (15:24→22:08)
[2022-12-17] MEDS ORDERED: ATORVASTATIN CA 20 MG TABLET (FP) ONE (22:07)
[2022-12-17] MEDS: ATORVASTATIN CA 10 MG TABLET (FP) PO SCH (22:21)
[2022-12-17] MEDS: PIPERACILLIN/TAZOB 2.25 GM 2.25 GM in DEXTROSE 5%-WATER - 50 ML IVPB SCH (22:21)
[2022-12-17] MEDS: INSULIN (LEVEMIR) 100 UNITS/ML UNITS SQ SCH (22:22)
[2022-12-18] MEDS: PIPERACILLIN/TAZOB 2.25 GM 2.25 GM in DEXTROSE 5%-WATER - 50 ML IVPB SCH ×3 (01:55→17:34)
[2022-12-18] MEDS: INSULIN (LEVEMIR) 100 UNITS/ML UNITS SQ SCH ×2 (06:58→21:20)
[2022-12-18] MEDS: GABAPENTIN 100 MG CAPSULE PO SCH ×3 (06:58→21:17)
[2022-12-18] MEDS: INSULIN SLIDING SCALE (NOVOLOG) 1 VIAL SQ SCH ×4 (06:58→21:17)
[2022-12-18 08:04] LABS: POTASSIUM 4.7 mmol/L (3.5-5.1)
[2022-12-18 08:06] LABS: BLOOD UREA NITROGEN 36.6 mg/dL (7-18); CALCIUM 8.5 mg/dL (8.5-10.1); MAGNESIUM 2.1 mg/dL (1.8-2.4)
[2022-12-18 08:09] LABS: CREATININE 2.2 mg/dL (0.55-1.3); PHOSPHOROUS 3.8 mg/dL (2.5-4.9)
[2022-12-18 08:11] LABS: BILIRUBIN,TOTAL 0.5 mg/dL (0.2-1); TOT PROT 6.4 g/dl (6.4-8.2)
[2022-12-18 08:24] LABS: BASO % 0.4 % (0-2.0); EOS % 3.2 % (0-4.5); HEMATOCRIT 27.2 % (35.4-49); HEMOGLOBIN 9.1 GM/dL (11.7-16.9); LYMPH % 15.1 % (8-40); MCH 28.1 pg (25.7-33.7); MCHC 33.5 g/dl (32.0-35.9); MEAN CELL VOLUME 83.8 fl (80-96); MEAN PLT VOLUME 8.3 fl (7.5-11.1); MONO % 6.9 % (3.8-10.2); NEUT % 74.4 % (42.8-82.8); PLATELET COUNT 246 10^3/uL (134-434); RBC 3.24 M/mm3 (4.00-5.60); RDW 15.8 % (11.9-15.9)
[2022-12-18] MEDS: amLODIPine BESYLATE 5 MG TABLET (FP) PO SCH (10:48)
[2022-12-18] MEDS: VALSARTAN 80 MG TABLET PO SCH (10:48)
[2022-12-18] MEDS: HEPARIN NA (PORCINE) 5,000 UNITS/ML 1ML VIAL SQ SCH ×2 (10:48→21:17)
[2022-12-18] MEDS: ATORVASTATIN CA 10 MG TABLET (FP) PO SCH (21:17)
[2022-12-19] MEDS: PIPERACILLIN/TAZOB 2.25 GM 2.25 GM in DEXTROSE 5%-WATER - 50 ML IVPB SCH ×3 (01:29→17:22)
[2022-12-19] MEDS: GABAPENTIN 100 MG CAPSULE PO SCH ×3 (06:48→21:27)
[2022-12-19] MEDS: INSULIN SLIDING SCALE (NOVOLOG) 1 VIAL SQ SCH ×4 (06:49→21:28)
[2022-12-19 07:52] LABS: BASO % 0.3 % (0-2.0); EOS % 2.8 % (0-4.5); HEMATOCRIT 28.1 % (35.4-49); HEMOGLOBIN 9.5 GM/dL (11.7-16.9); LYMPH % 18.2 % (8-40); MCH 28.4 pg (25.7-33.7); MEAN CELL VOLUME 83.5 fl (80-96); MONO % 6.4 % (3.8-10.2); NEUT % 72.3 % (42.8-82.8); PLATELET COUNT 246 10^3/uL (134-434); RBC 3.37 M/mm3 (4.00-5.60); RDW 15.9 % (11.9-15.9); WHITE BLOOD COUNT 5.5 K/mm3 (4.0-10.0)
[2022-12-19 07:58] LABS: POTASSIUM 4.7 mmol/L (3.5-5.1)
[2022-12-19 08:02] LABS: BLOOD UREA NITROGEN 29.7 mg/dL (7-18)
[2022-12-19 08:03] LABS: CALCIUM 8.7 mg/dL (8.5-10.1)
[2022-12-19 08:05] LABS: CREATININE 1.9 mg/dL (0.55-1.3)
[2022-12-19 08:06] LABS: BILIRUBIN,TOTAL 0.3 mg/dL (0.2-1); TOT PROT 6.5 g/dl (6.4-8.2)
[2022-12-19] MEDS: AMINO ACIDS/PROTEIN HYDROLYS 30 ML LIQUID.PKT PO SCH (08:35)
[2022-12-19] MEDS: VALSARTAN 80 MG TABLET PO SCH (09:13)
[2022-12-19] MEDS: MULTIVITAMINS (DAILY MVI) TABLET (FP) PO SCH (09:13)
[2022-12-19] MEDS: amLODIPine BESYLATE 5 MG TABLET (FP) PO SCH (09:13)
[2022-12-19] MEDS: HEPARIN NA (PORCINE) 5,000 UNITS/ML 1ML VIAL SQ SCH ×2 (09:13→21:27)
[2022-12-19] MEDS: COLLAGENASE CLOSTRIDIUM HIST. 30 GRAMS TUBE TP SCH (13:38)
[2022-12-19] MEDS ORDERED: INSULIN (NOVOLOG) ASPART 100 UNITS/ML 10ML VIAL ONE (17:14)
[2022-12-19] MEDS: INSULIN (LEVEMIR) 100 UNITS/ML UNITS SQ SCH (21:27)
[2022-12-19] MEDS: ATORVASTATIN CA 10 MG TABLET (FP) PO SCH (21:27)
[2022-12-20] MEDS: PIPERACILLIN/TAZOB 2.25 GM 2.25 GM in DEXTROSE 5%-WATER - 50 ML IVPB SCH ×3 (03:19→17:35)
[2022-12-20] MEDS: INSULIN SLIDING SCALE (NOVOLOG) 1 VIAL SQ SCH ×4 (07:06→21:18)
[2022-12-20] MEDS: GABAPENTIN 100 MG CAPSULE PO SCH ×3 (07:06→21:16)
[2022-12-20] MEDS: AMINO ACIDS/PROTEIN HYDROLYS 30 ML LIQUID.PKT PO SCH ×2 (09:51→09:54)
[2022-12-20] MEDS: MULTIVITAMINS (DAILY MVI) TABLET (FP) PO SCH (09:51)
[2022-12-20] MEDS: VALSARTAN 80 MG TABLET PO SCH (09:51)
[2022-12-20] MEDS: amLODIPine BESYLATE 5 MG TABLET (FP) PO SCH (09:51)
[2022-12-20] MEDS: HEPARIN NA (PORCINE) 5,000 UNITS/ML 1ML VIAL SQ SCH ×2 (09:51→21:19)
[2022-12-20] MEDS: COLLAGENASE CLOSTRIDIUM HIST. 30 GRAMS TUBE TP SCH (11:18)
[2022-12-20] MEDS: ATORVASTATIN CA 10 MG TABLET (FP) PO SCH (21:17)
[2022-12-20] MEDS: INSULIN (LEVEMIR) 100 UNITS/ML UNITS SQ SCH (21:19)
[2022-12-21] MEDS: PIPERACILLIN/TAZOB 2.25 GM 2.25 GM in DEXTROSE 5%-WATER - 50 ML IVPB SCH ×3 (02:14→17:08)
[2022-12-21] MEDS: GABAPENTIN 100 MG CAPSULE PO SCH ×3 (05:40→21:32)
[2022-12-21] MEDS: INSULIN SLIDING SCALE (NOVOLOG) 1 VIAL SQ SCH ×4 (06:04→22:47)
[2022-12-21] MEDS ORDERED: INSULIN (LEVEMIR) 100 UNITS/ML UNITS SQ ONE (08:27)
[2022-12-21] MEDS: HEPARIN NA (PORCINE) 5,000 UNITS/ML 1ML VIAL SQ SCH (09:40)
[2022-12-21] MEDS: amLODIPine BESYLATE 5 MG TABLET (FP) PO SCH (09:40)
[2022-12-21] MEDS: MULTIVITAMINS (DAILY MVI) TABLET (FP) PO SCH (09:40)
[2022-12-21] MEDS: AMINO ACIDS/PROTEIN HYDROLYS 30 ML LIQUID.PKT PO SCH (09:40)
[2022-12-21] MEDS: VALSARTAN 80 MG TABLET PO SCH (09:40)
[2022-12-21] MEDS: COLLAGENASE CLOSTRIDIUM HIST. 30 GRAMS TUBE TP SCH (12:35)
[2022-12-21] MEDS ORDERED: ENOXAPARIN NA (PORCINE) 40 MG/0.4 ML DISP.SYRIN SQ SCH (17:20)
[2022-12-21 21:29] LABS: INR 1.03 (0.83-1.09); PROTHROMBIN TIME (PATIENT) 11.9 SEC (9.7-13.0)
[2022-12-21] MEDS: ATORVASTATIN CA 10 MG TABLET (FP) PO SCH (21:32)
[2022-12-21] MEDS: INSULIN (LEVEMIR) 100 UNITS/ML UNITS SQ SCH (21:32)
[2022-12-22] MEDS: PIPERACILLIN/TAZOB 2.25 GM 2.25 GM in DEXTROSE 5%-WATER - 50 ML IVPB SCH ×3 (01:47→16:59)
[2022-12-22] MEDS: GABAPENTIN 100 MG CAPSULE PO SCH ×3 (06:44→21:33)
[2022-12-22] MEDS: INSULIN SLIDING SCALE (NOVOLOG) 1 VIAL SQ SCH ×4 (07:01→21:35)
[2022-12-22] MEDS ORDERED: BUPIVACAINE HCL/PF 0.5% (5MG/ML) 10 ML VIAL ONE (07:15)
[2022-12-22] MEDS ORDERED: LIDOCAINE HCL 1%, 10 MG/ML (20ML VIAL) ONE (07:15)
[2022-12-22] MEDS ORDERED: PROPOFOL 20 ML ONE (07:27)
[2022-12-22] MEDS ORDERED: MIDAZOLAM HCL 2 MG/2 ML SINGLE DOSE VIAL ONE (07:27)
[2022-12-22] MEDS ORDERED: LIDOCAINE HCL/PF 2% SDV 5ML VIAL ONE (07:27)
[2022-12-22] MEDS ORDERED: LIDOCAINE HCL 1%, 10 MG/ML (20ML VIAL) NR ONE (07:39)
[2022-12-22] MEDS ORDERED: BUPIVACAINE HCL/PF 0.5% (5 MG/ML) 30 ML VIAL IJ ONE (07:39)
[2022-12-22] MEDS ORDERED: GENTAMICIN SO4 80 MG/2 ML VIAL ONE (07:54)
[2022-12-22] MEDS ORDERED: ONDANSETRON 4 MG/2 ML VIAL ONE (07:56)
[2022-12-22] MEDS ORDERED: THROMBIN (BOVINE) 5,000 UNIT VIAL TP ONE ×2 (08:03→08:04)
[2022-12-22] MEDS ORDERED: ONDANSETRON 4 MG/2 ML VIAL IVPUSH PRN ×2 (08:25→08:41)
[2022-12-22] MEDS ORDERED: LACTATED RINGERS SOLUTION 1,000 ML IV SCH ×2 (08:30→08:41)
[2022-12-22] MEDS ORDERED: MELATONIN 5 MG TABLETS PO PRN (08:41)
[2022-12-22 09:09] LABS: BASO % 0.4 % (0-2.0); EOS % 3.5 % (0-4.5); HEMATOCRIT 26.2 % (35.4-49); HEMOGLOBIN 8.7 GM/dL (11.7-16.9); LYMPH % 20.2 % (8-40); MCHC 33.1 g/dl (32.0-35.9); MEAN CELL VOLUME 84.6 fl (80-96); MEAN PLT VOLUME 7.4 fl (7.5-11.1); MONO % 9.6 % (3.8-10.2); NEUT % 66.3 % (42.8-82.8); PLATELET COUNT 204 10^3/uL (134-434); RBC 3.09 M/mm3 (4.00-5.60); RDW 15.7 % (11.9-15.9); WHITE BLOOD COUNT 4.7 K/mm3 (4.0-10.0)
[2022-12-22 09:15] LABS: INR 1.05 (0.83-1.09); PROTHROMBIN TIME (PATIENT) 12.2 SEC (9.7-13.0)
[2022-12-22] MEDS: MULTIVITAMINS (DAILY MVI) TABLET (FP) PO SCH (09:55)
[2022-12-22] MEDS: amLODIPine BESYLATE 5 MG TABLET (FP) PO SCH (09:55)
[2022-12-22] MEDS: VALSARTAN 80 MG TABLET PO SCH (09:55)
[2022-12-22] MEDS: COLLAGENASE CLOSTRIDIUM HIST. 30 GRAMS TUBE TP SCH ×2 (09:56→13:14)
[2022-12-22] MEDS ORDERED: INSULIN (NOVOLOG) ASPART 100 UNITS/ML 10ML VIAL ONE ×3 (10:58→21:06)
[2022-12-22] MEDS: ACETAMINOPHEN 500 MG TABLET (FP) PO PRN (11:10)
[2022-12-22 13:10] LABS: ALBUMIN 3.1 g/dl (3.4-5.0)
[2022-12-22 13:13] LABS: BILIRUBIN,DIRECT 0.1 mg/dL (0.0-0.2)
[2022-12-22 13:15] LABS: BILIRUBIN,TOTAL 0.3 mg/dL (0.2-1); TOT PROT 6.8 g/dl (6.4-8.2)
[2022-12-22 15:25] VITALS: BMI 24.5
[2022-12-22] MEDS: ATORVASTATIN CA 10 MG TABLET (FP) PO SCH (21:32)
[2022-12-22] MEDS: INSULIN (LEVEMIR) 100 UNITS/ML UNITS SQ SCH (21:33)
[2022-12-22] MEDS: HEPARIN NA (PORCINE) 5,000 UNITS/ML 1ML VIAL SQ SCH (21:33)
[2022-12-23] MEDS: PIPERACILLIN/TAZOB 2.25 GM 2.25 GM in DEXTROSE 5%-WATER - 50 ML IVPB SCH ×3 (02:43→17:15)
[2022-12-23] MEDS: HEPARIN NA (PORCINE) 5,000 UNITS/ML 1ML VIAL SQ SCH ×3 (05:27→22:23)
[2022-12-23] MEDS: GABAPENTIN 100 MG CAPSULE PO SCH (05:28)
[2022-12-23] MEDS: INSULIN SLIDING SCALE (NOVOLOG) 1 VIAL SQ SCH ×4 (07:20→22:25)
[2022-12-23] MEDS ORDERED: INSULIN (NOVOLOG) ASPART 100 UNITS/ML 10ML VIAL ONE ×2 (07:53→22:18)
[2022-12-23] MEDS ORDERED: INSULIN (LEVEMIR) 100 UNITS/ML UNITS SQ ONE (07:54)
[2022-12-23 08:36] LABS: BASO % 0.4 % (0-2.0); EOS % 2.3 % (0-4.5); HEMATOCRIT 29.2 % (35.4-49); HEMOGLOBIN 9.6 GM/dL (11.7-16.9); LYMPH % 13.7 % (8-40); MEAN CELL VOLUME 84.9 fl (80-96); MEAN PLT VOLUME 7.6 fl (7.5-11.1); MONO % 6.7 % (3.8-10.2); NEUT % 76.9 % (42.8-82.8); PLATELET COUNT 246 10^3/uL (134-434); RBC 3.44 M/mm3 (4.00-5.60); RDW 15.5 % (11.9-15.9); WHITE BLOOD COUNT 7.1 K/mm3 (4.0-10.0)
[2022-12-23 08:51] LABS: POTASSIUM 4.8 mmol/L (3.5-5.1)
[2022-12-23 08:57] LABS: ALBUMIN 3.4 g/dl (3.4-5.0); BLOOD UREA NITROGEN 31.2 mg/dL (7-18); MAGNESIUM 2.3 mg/dL (1.8-2.4)
[2022-12-23 09:01] LABS: BILIRUBIN,TOTAL 0.3 mg/dL (0.2-1); CREATININE 2.3 mg/dL (0.55-1.3); TOT PROT 7.4 g/dl (6.4-8.2)
[2022-12-23] MEDS: AMINO ACIDS/PROTEIN HYDROLYS 30 ML LIQUID.PKT PO SCH (09:24)
[2022-12-23] MEDS: ACETAMINOPHEN 500 MG TABLET (FP) PO PRN (10:14)
[2022-12-23] MEDS: VALSARTAN 80 MG TABLET PO SCH (10:14)
[2022-12-23] MEDS: amLODIPine BESYLATE 5 MG TABLET (FP) PO SCH (10:14)
[2022-12-23] MEDS: MULTIVITAMINS (DAILY MVI) TABLET (FP) PO SCH (10:15)
[2022-12-23] MEDS: COLLAGENASE CLOSTRIDIUM HIST. 30 GRAMS TUBE TP SCH (10:16)
[2022-12-23] MEDS ORDERED: GABAPENTIN 100 MG CAPSULE PO ONE (12:03)
[2022-12-23] MEDS ORDERED: GABAPENTIN 400 MG CAPSULE PO SCH (14:00)
[2022-12-23] MEDS: GABAPENTIN 300 MG CAPSULE PO SCH ×2 (15:05→22:23)
[2022-12-23] MEDS: ATORVASTATIN CA 10 MG TABLET (FP) PO SCH (22:24)
[2022-12-23] MEDS: INSULIN (LEVEMIR) 100 UNITS/ML UNITS SQ SCH (22:24)
[2022-12-24] MEDS: PIPERACILLIN/TAZOB 2.25 GM 2.25 GM in DEXTROSE 5%-WATER - 50 ML IVPB SCH ×2 (02:42→10:38)
[2022-12-24] MEDS: HEPARIN NA (PORCINE) 5,000 UNITS/ML 1ML VIAL SQ SCH (05:41)
[2022-12-24] MEDS: GABAPENTIN 300 MG CAPSULE PO SCH (05:41)
[2022-12-24 08:05] VITALS: PULSE 70
[2022-12-24] MEDS: INSULIN SLIDING SCALE (NOVOLOG) 1 VIAL SQ SCH ×2 (08:16→11:59)
[2022-12-24 09:19] LABS: BASO % 0.3 % (0-2.0); EOS % 3.3 % (0-4.5); HEMATOCRIT 27.2 % (35.4-49); HEMOGLOBIN 9.2 GM/dL (11.7-16.9); LYMPH % 18.3 % (8-40); MCH 28.1 pg (25.7-33.7); MEAN CELL VOLUME 82.8 fl (80-96); MEAN PLT VOLUME 7.7 fl (7.5-11.1); MONO % 10.4 % (3.8-10.2); NEUT % 67.7 % (42.8-82.8); PLATELET COUNT 200 10^3/uL (134-434); POTASSIUM 5.1 mmol/L (3.5-5.1); RBC 3.29 M/mm3 (4.00-5.60); RDW 15.9 % (11.9-15.9); WHITE BLOOD COUNT 5.7 K/mm3 (4.0-10.0)
[2022-12-24 09:42] LABS: ALBUMIN 3.1 g/dl (3.4-5.0); BLOOD UREA NITROGEN 32.6 mg/dL (7-18); CALCIUM 8.7 mg/dL (8.5-10.1); MAGNESIUM 2.4 mg/dL (1.8-2.4)
[2022-12-24 09:44] LABS: CREATININE 2.4 mg/dL (0.55-1.3)
[2022-12-24 09:46] LABS: BILIRUBIN,TOTAL 0.3 mg/dL (0.2-1)
[2022-12-24 09:47] LABS: TOT PROT 6.6 g/dl (6.4-8.2)
[2022-12-24] MEDS ORDERED: ACETAMINOPHEN 1000 MG/100 ML BAG IVPB ONE (10:15)
[2022-12-24 10:36] VITALS: BP 137/78; RESP 16; TEMP 98
[2022-12-24] MEDS: AMINO ACIDS/PROTEIN HYDROLYS 30 ML LIQUID.PKT PO SCH (10:38)
[2022-12-24] MEDS: VALSARTAN 80 MG TABLET PO SCH (10:39)
[2022-12-24] MEDS: MULTIVITAMINS (DAILY MVI) TABLET (FP) PO SCH (10:39)
[2022-12-24] MEDS: amLODIPine BESYLATE 5 MG TABLET (FP) PO SCH (10:39)
[2022-12-24] MEDS: COLLAGENASE CLOSTRIDIUM HIST. 30 GRAMS TUBE TP SCH (10:40)
== END 2022-12-24 13:37 | disposition home or self-care (01) | DRG 617 ==
LOC: JER 04:57 → JERBED 08:52 → J7W 23:36
PROVIDERS: ADMIT Internal Medicine; ATTEND Nurse Practitioner Acute Care
PROC: 0Y6M0Z5 Detachment at Right Foot, Complete 2nd Ray, Open Approach (ICD-10-PCS; principal; 2022-12-22 07:30)
DX: E11.69 Type 2 diabetes mellitus with other specified complication (principal); L03.115 Cellulitis of right lower limb; M86.171 Other acute osteomyelitis, right ankle and foot; L97.318 Non-pressure chronic ulcer of right ankle with other specified severity; E11.65 Type 2 diabetes mellitus with hyperglycemia; E11.319 Type 2 diabetes mellitus with unspecified diabetic retinopathy without macular edema; E11.40 Type 2 diabetes mellitus with diabetic neuropathy, unspecified; E11.622 Type 2 diabetes mellitus with other skin ulcer; E78.5 Hyperlipidemia, unspecified; I12.9 Hypertensive chronic kidney disease with stage 1 through stage 4 chronic kidney disease, or unspecified chronic kidney disease; E11.22 Type 2 diabetes mellitus with diabetic chronic kidney disease; N18.9 Chronic kidney disease, unspecified; L08.9 Local infection of the skin and subcutaneous tissue, unspecified; R22.42 Localized swelling, mass and lump, left lower limb; Z89.421 Acquired absence of other right toe(s)
CPT/HCPCS: 36415; 73630-TC-RT-FY; 73721-RT-TC; 80053; 80076; 82962; 83036; 83735; 84100; 85025; 85610; 85651; 86140; 87040; 87070; 87186; 87205; 88305-TC; 88311-TC; 93005; 93010; 94760; 97597; 99285-25; G0463-25; J0875; J1644

== ENCOUNTER 2023-01-12 23:42 | Inpatient (IN) | payer OTHER, MEDICARE ==
[2023-01-12 23:52] VITALS: BMI 24.6
[2023-01-13 01:23] LABS: BASO % 0.4 % (0-2.0); EOS % 3.3 % (0-4.5); HEMATOCRIT 28.9 % (35.4-49); LYMPH % 14.6 % (8-40); MCHC 34.6 g/dl (32.0-35.9); MEAN CELL VOLUME 83.8 fl (80-96); MEAN PLT VOLUME 7.4 fl (7.5-11.1); MONO % 9.2 % (3.8-10.2); NEUT % 72.5 % (42.8-82.8); PLATELET COUNT 276 10^3/uL (134-434); RBC 3.45 M/mm3 (4.00-5.60); WHITE BLOOD COUNT 7.5 K/mm3 (4.0-10.0)
[2023-01-13 01:30] LABS: PROTHROMBIN TIME (PATIENT) 11.6 SEC (9.7-13.0)
[2023-01-13 01:33] LABS: ACTIVATED PTT 28.2 SECONDS (25.2-36.5)
[2023-01-13 01:42] LABS: POTASSIUM 4.8 mmol/L (3.5-5.1)
[2023-01-13 01:44] LABS: BLOOD UREA NITROGEN 38.2 mg/dL (7-18)
[2023-01-13 01:45] LABS: ALBUMIN 3.4 g/dl (3.4-5.0)
[2023-01-13 01:47] LABS: CREATININE 2.3 mg/dL (0.55-1.3)
[2023-01-13 01:49] LABS: BILIRUBIN,TOTAL 0.3 mg/dL (0.2-1); TOT PROT 7.6 g/dl (6.4-8.2)
[2023-01-13 02:33] LABS: ERYTHROCYTE SEDIMENTATION RATE 111 mm/hr (0-20)
[2023-01-13] MEDS ORDERED: VANCOMYCIN 1,000 MG in DEXTROSE 5%-WATER - 250 ML IVPB ONE (03:10)
[2023-01-13] MEDS ORDERED: PIPERACILLIN/TAZOB 4.5 GM 4.5 GM in DEXTROSE 5%-WATER 100 ML IVPB ONE (03:11)
[2023-01-13] MEDS ORDERED: VANCOMYCIN 1 GRAM (PRE-DOCKED) 1,000 MG/250 ML BAG IVPB ONE (03:52)
[2023-01-13] MEDS ORDERED: PIPERACILLIN/TAZOB 4.5 GM 4.5 GM/100 ML BAG IVPB ONE (03:52)
[2023-01-13] MEDS ORDERED: PATIENT'S OWN MEDICATION (NON-FORMULARY) (Oxycodone Hcl [Oxaydo] 5 MG Tablet.Orl) PO PRN (09:27)
[2023-01-13] MEDS ORDERED: MELATONIN 5 MG TABLETS PO PRN (09:29)
[2023-01-13] MEDS ORDERED: ACETAMINOPHEN 500 MG TABLET (FP) PO PRN (09:29)
[2023-01-13] MEDS ORDERED: MULTIVITAMINS (DAILY MVI) TABLET (FP) ONE (10:11)
[2023-01-13] MEDS ORDERED: VALSARTAN 80 MG TABLET ONE (10:11)
[2023-01-13] MEDS ORDERED: amLODIPine BESYLATE 5 MG TABLET (FP) ONE (10:11)
[2023-01-13] MEDS: VALSARTAN 80 MG TABLET PO SCH (10:14)
[2023-01-13] MEDS: MULTIVITAMINS (DAILY MVI) TABLET (FP) PO SCH (10:14)
[2023-01-13] MEDS: amLODIPine BESYLATE 10 MG TABLET (FP) PO SCH (10:14)
[2023-01-13 10:38] LABS: EPI CELLS 0 /uL (0-25.1); HYALINE CASTS 0 /uL (0-3.1); PH,URINE 5.5 (5.0-8.0); URINE APPEARANCE CLEAR; URINE BACTERIA 1 /uL (0-1359); URINE BILIRUBIN NEGATIVE (NEGATIVE); URINE COLOR YELLOW; URINE GLUCOSE (UA) NEGATIVE (NEGATIVE); URINE KETONE NEGATIVE (NEGATIVE); URINE LEUK ESTERASE NEGATIVE (NEGATIVE); URINE NITRITE NEGATIVE (NEGATIVE); URINE PROTEIN 1+ (NEGATIVE); URINE RBC 11 /uL (0-23.9); URINE UROBILINOGEN 0.2 mg/dL (0.2-1.0); URINE WBC 3 /uL (0-25.8)
[2023-01-13] MEDS: INSULIN SLIDING SCALE (NOVOLOG) 1 VIAL SQ SCH ×3 (11:26→22:21)
[2023-01-13] MEDS ORDERED: GABAPENTIN 300 MG CAPSULE ONE ×2 (14:16→22:24)
[2023-01-13] MEDS ORDERED: HEPARIN NA (PORCINE) 5,000 UNITS/ML 1ML VIAL ONE ×2 (14:17→22:06)
[2023-01-13] MEDS: GABAPENTIN 300 MG CAPSULE PO SCH ×2 (14:20→22:34)
[2023-01-13] MEDS: HEPARIN NA (PORCINE) 5,000 UNITS/ML 1ML VIAL SQ SCH ×2 (14:20→22:21)
[2023-01-13] MEDS ORDERED: PIPERACILLIN/TAZOB 3.375 GM 3.375 GM/50 ML BAG IVPB ONE (18:04)
[2023-01-13] MEDS: PIPERACILLIN/TAZOB 3.375 GM 3.375 GM in DEXTROSE 5%-WATER - 50 ML IVPB SCH (18:05)
[2023-01-13] MEDS ORDERED: VANCOMYCIN 1,000 MG in DEXTROSE 5%-WATER - 250 ML IVPB SCH (22:00)
[2023-01-13] MEDS ORDERED: VANCOMYCIN/WATER FOR INJ (PEG) 1,000 MG/200 ML BAG IVPB SCH (22:00)
[2023-01-13] MEDS ORDERED: ATORVASTATIN CA 20 MG TABLET (FP) ONE (22:06)
[2023-01-13] MEDS ORDERED: INSULIN (LEVEMIR) 100 UNITS/ML UNITS SQ ONE (22:07)
[2023-01-13] MEDS: INSULIN (LEVEMIR) 100 UNITS/ML UNITS SQ SCH (22:20)
[2023-01-13] MEDS: ATORVASTATIN CA 10 MG TABLET (FP) PO SCH (22:21)
[2023-01-14] MEDS ORDERED: PIPERACILLIN/TAZOB 3.375 GM 3.375 GM/50 ML BAG IVPB ONE ×2 (02:32→09:31)
[2023-01-14] MEDS: PIPERACILLIN/TAZOB 3.375 GM 3.375 GM in DEXTROSE 5%-WATER - 50 ML IVPB SCH ×2 (02:39→09:49)
[2023-01-14] MEDS ORDERED: ACETAMINOPHEN 325 MG TABLET (FP) ONE (03:22)
[2023-01-14] MEDS ORDERED: GABAPENTIN 300 MG CAPSULE ONE (06:17)
[2023-01-14] MEDS ORDERED: HEPARIN NA (PORCINE) 5,000 UNITS/ML 1ML VIAL ONE (06:18)
[2023-01-14 06:24] LABS: BASO % 0.4 % (0-2.0); EOS % 3.7 % (0-4.5); HEMATOCRIT 25.6 % (35.4-49); HEMOGLOBIN 8.5 GM/dL (11.7-16.9); LYMPH % 13.9 % (8-40); MCH 28.6 pg (25.7-33.7); MCHC 33.3 g/dl (32.0-35.9); MEAN CELL VOLUME 85.9 fl (80-96); MEAN PLT VOLUME 7.3 fl (7.5-11.1); MONO % 8.8 % (3.8-10.2); NEUT % 73.2 % (42.8-82.8); PLATELET COUNT 246 10^3/uL (134-434); RBC 2.98 M/mm3 (4.00-5.60); RDW 15.4 % (11.9-15.9); WHITE BLOOD COUNT 5.2 K/mm3 (4.0-10.0)
[2023-01-14] MEDS: GABAPENTIN 300 MG CAPSULE PO SCH ×3 (06:28→21:22)
[2023-01-14] MEDS: HEPARIN NA (PORCINE) 5,000 UNITS/ML 1ML VIAL SQ SCH ×3 (06:28→21:22)
[2023-01-14 07:10] LABS: POTASSIUM 4.7 mmol/L (3.5-5.1)
[2023-01-14 07:13] LABS: CALCIUM 8.6 mg/dL (8.5-10.1)
[2023-01-14 07:14] LABS: ALBUMIN 2.9 g/dl (3.4-5.0); BLOOD UREA NITROGEN 38.5 mg/dL (7-18); MAGNESIUM 2.3 mg/dL (1.8-2.4)
[2023-01-14 07:17] LABS: CREATININE 2.6 mg/dL (0.55-1.3); PHOSPHOROUS 4.2 mg/dL (2.5-4.9)
[2023-01-14 07:18] LABS: BILIRUBIN,TOTAL 0.3 mg/dL (0.2-1); TOT PROT 6.6 g/dl (6.4-8.2)
[2023-01-14] MEDS: INSULIN SLIDING SCALE (NOVOLOG) 1 VIAL SQ SCH ×4 (08:49→21:26)
[2023-01-14] MEDS ORDERED: VALSARTAN 80 MG TABLET ONE (09:31)
[2023-01-14] MEDS: MULTIVITAMINS (DAILY MVI) TABLET (FP) PO SCH (09:49)
[2023-01-14] MEDS: amLODIPine BESYLATE 10 MG TABLET (FP) PO SCH (09:49)
[2023-01-14] MEDS: VALSARTAN 80 MG TABLET PO SCH (09:49)
[2023-01-14] MEDS ORDERED: PIPERACILLIN/TAZOBACTAM 2.25 GM VIAL IVPB ONE (17:19)
[2023-01-14] MEDS: PIPERACILLIN/TAZOB 2.25 GM 2.25 GM in DEXTROSE 5%-WATER - 50 ML IVPB SCH (17:31)
[2023-01-14] MEDS: SODIUM CHLORIDE 0.45% 1,000 ML IV SCH (17:33)
[2023-01-14] MEDS ORDERED: INSULIN (NOVOLOG) ASPART 100 UNITS/ML 10ML VIAL ONE (21:03)
[2023-01-14] MEDS: INSULIN (LEVEMIR) 100 UNITS/ML UNITS SQ SCH (21:21)
[2023-01-14] MEDS: ATORVASTATIN CA 10 MG TABLET (FP) PO SCH (21:22)
[2023-01-15] MEDS: PIPERACILLIN/TAZOB 2.25 GM 2.25 GM in DEXTROSE 5%-WATER - 50 ML IVPB SCH ×3 (01:46→18:03)
[2023-01-15] MEDS: GABAPENTIN 300 MG CAPSULE PO SCH ×3 (06:12→21:10)
[2023-01-15] MEDS: HEPARIN NA (PORCINE) 5,000 UNITS/ML 1ML VIAL SQ SCH ×3 (06:12→21:16)
[2023-01-15] MEDS: INSULIN SLIDING SCALE (NOVOLOG) 1 VIAL SQ SCH ×4 (06:15→21:13)
[2023-01-15] MEDS: SODIUM CHLORIDE 0.45% 1,000 ML IV SCH ×2 (08:04→18:00)
[2023-01-15 08:23] LABS: POTASSIUM 4.6 mmol/L (3.5-5.1)
[2023-01-15 08:29] LABS: CALCIUM 8.3 mg/dL (8.5-10.1)
[2023-01-15 08:30] LABS: ALBUMIN 2.7 g/dl (3.4-5.0); BLOOD UREA NITROGEN 32.3 mg/dL (7-18)
[2023-01-15 08:32] LABS: CREATININE 2.2 mg/dL (0.55-1.3)
[2023-01-15 08:33] LABS: TOT PROT 6.2 g/dl (6.4-8.2)
[2023-01-15 08:36] LABS: BILIRUBIN,TOTAL 0.3 mg/dL (0.2-1)
[2023-01-15] MEDS: MULTIVITAMINS (DAILY MVI) TABLET (FP) PO SCH (09:08)
[2023-01-15] MEDS: amLODIPine BESYLATE 5 MG TABLET (FP) PO SCH (09:08)
[2023-01-15] MEDS: VALSARTAN 80 MG TABLET PO SCH (09:08)
[2023-01-15] MEDS ORDERED: INSULIN (NOVOLOG) ASPART 100 UNITS/ML 10ML VIAL ONE (11:42)
[2023-01-15] MEDS: ATORVASTATIN CA 10 MG TABLET (FP) PO SCH (21:10)
[2023-01-15] MEDS: INSULIN (LEVEMIR) 100 UNITS/ML UNITS SQ SCH (21:13)
[2023-01-16] MEDS: SODIUM CHLORIDE 0.45% 1,000 ML IV SCH ×2 (00:28→17:44)
[2023-01-16] MEDS: PIPERACILLIN/TAZOB 2.25 GM 2.25 GM in DEXTROSE 5%-WATER - 50 ML IVPB SCH ×3 (02:04→17:43)
[2023-01-16] MEDS: GABAPENTIN 300 MG CAPSULE PO SCH ×3 (06:12→21:24)
[2023-01-16] MEDS: HEPARIN NA (PORCINE) 5,000 UNITS/ML 1ML VIAL SQ SCH ×3 (06:12→21:24)
[2023-01-16] MEDS: INSULIN SLIDING SCALE (NOVOLOG) 1 VIAL SQ SCH ×4 (06:13→21:22)
[2023-01-16] MEDS: MULTIVITAMINS (DAILY MVI) TABLET (FP) PO SCH (09:25)
[2023-01-16] MEDS: amLODIPine BESYLATE 5 MG TABLET (FP) PO SCH (09:25)
[2023-01-16] MEDS: VALSARTAN 80 MG TABLET PO SCH (09:25)
[2023-01-16] MEDS: INSULIN (LEVEMIR) 100 UNITS/ML UNITS SQ SCH (21:25)
[2023-01-16] MEDS: ATORVASTATIN CA 10 MG TABLET (FP) PO SCH (21:26)
[2023-01-17] MEDS: PIPERACILLIN/TAZOB 2.25 GM 2.25 GM in DEXTROSE 5%-WATER - 50 ML IVPB SCH ×3 (02:21→17:16)
[2023-01-17] MEDS: GABAPENTIN 300 MG CAPSULE PO SCH ×3 (07:00→21:15)
[2023-01-17] MEDS: HEPARIN NA (PORCINE) 5,000 UNITS/ML 1ML VIAL SQ SCH ×3 (07:00→21:16)
[2023-01-17] MEDS: INSULIN SLIDING SCALE (NOVOLOG) 1 VIAL SQ SCH ×4 (07:02→21:14)
[2023-01-17] MEDS: amLODIPine BESYLATE 5 MG TABLET (FP) PO SCH (10:07)
[2023-01-17] MEDS: VALSARTAN 80 MG TABLET PO SCH (10:07)
[2023-01-17] MEDS: MULTIVITAMINS (DAILY MVI) TABLET (FP) PO SCH (10:08)
[2023-01-17 10:11] LABS: BASO % 0.4 % (0-2.0); EOS % 2.7 % (0-4.5); HEMATOCRIT 25.3 % (35.4-49); HEMOGLOBIN 8.8 GM/dL (11.7-16.9); LYMPH % 13.5 % (8-40); MCH 29.1 pg (25.7-33.7); MCHC 34.9 g/dl (32.0-35.9); MEAN CELL VOLUME 83.5 fl (80-96); MEAN PLT VOLUME 7.2 fl (7.5-11.1); MONO % 6.2 % (3.8-10.2); NEUT % 77.2 % (42.8-82.8); PLATELET COUNT 260 10^3/uL (134-434); RBC 3.03 M/mm3 (4.00-5.60); RDW 15.4 % (11.9-15.9)
[2023-01-17] MEDS: SODIUM CHLORIDE 0.45% 1,000 ML IV SCH (10:11)
[2023-01-17 10:48] LABS: POTASSIUM 4.7 mmol/L (3.5-5.1)
[2023-01-17] MEDS ORDERED: INSULIN (NOVOLOG) ASPART 100 UNITS/ML 10ML VIAL ONE (11:02)
[2023-01-17 11:03] LABS: ALBUMIN 2.9 g/dl (3.4-5.0); BLOOD UREA NITROGEN 28.2 mg/dL (7-18); CALCIUM 8.6 mg/dL (8.5-10.1)
[2023-01-17 11:07] LABS: CREATININE 2.2 mg/dL (0.55-1.3)
[2023-01-17 11:09] LABS: BILIRUBIN,TOTAL 0.2 mg/dL (0.2-1); TOT PROT 6.5 g/dl (6.4-8.2)
[2023-01-17 13:25] LABS: RETICULOCYTES 1.46 % (0.5-1.5)
[2023-01-17] MEDS: INSULIN (LEVEMIR) 100 UNITS/ML UNITS SQ SCH (21:15)
[2023-01-17] MEDS: ATORVASTATIN CA 10 MG TABLET (FP) PO SCH (21:16)
[2023-01-18] MEDS: PIPERACILLIN/TAZOB 2.25 GM 2.25 GM in DEXTROSE 5%-WATER - 50 ML IVPB SCH ×3 (01:00→18:05)
[2023-01-18] MEDS: GABAPENTIN 300 MG CAPSULE PO SCH ×3 (05:42→21:30)
[2023-01-18] MEDS: HEPARIN NA (PORCINE) 5,000 UNITS/ML 1ML VIAL SQ SCH ×3 (05:46→21:30)
[2023-01-18] MEDS: INSULIN SLIDING SCALE (NOVOLOG) 1 VIAL SQ SCH ×4 (06:21→21:34)
[2023-01-18] MEDS: MULTIVITAMINS (DAILY MVI) TABLET (FP) PO SCH (09:09)
[2023-01-18] MEDS: VALSARTAN 80 MG TABLET PO SCH (09:09)
[2023-01-18] MEDS: amLODIPine BESYLATE 5 MG TABLET (FP) PO SCH (09:09)
[2023-01-18 09:58] LABS: HEMATOCRIT 23.7 % (35.4-49); HEMOGLOBIN 8.2 GM/dL (11.7-16.9); MCH 29.3 pg (25.7-33.7); MCHC 34.5 g/dl (32.0-35.9); MEAN CELL VOLUME 84.9 fl (80-96); MEAN PLT VOLUME 7.1 fl (7.5-11.1); PLATELET COUNT 256 10^3/uL (134-434); RDW 15.1 % (11.9-15.9); WHITE BLOOD COUNT 7.1 K/mm3 (4.0-10.0)
[2023-01-18 10:28] LABS: POTASSIUM 4.6 mmol/L (3.5-5.1)
[2023-01-18 10:35] LABS: CALCIUM 8.4 mg/dL (8.5-10.1)
[2023-01-18 10:36] LABS: ALBUMIN 2.7 g/dl (3.4-5.0); BLOOD UREA NITROGEN 30.2 mg/dL (7-18); MAGNESIUM 2.2 mg/dL (1.8-2.4)
[2023-01-18 10:39] LABS: CREATININE 2.3 mg/dL (0.55-1.3); PHOSPHOROUS 3.7 mg/dL (2.5-4.9)
[2023-01-18 10:41] LABS: BILIRUBIN,TOTAL 0.3 mg/dL (0.2-1); TOT PROT 6.1 g/dl (6.4-8.2)
[2023-01-18] MEDS: ATORVASTATIN CA 10 MG TABLET (FP) PO SCH (21:30)
[2023-01-18] MEDS: INSULIN (LEVEMIR) 100 UNITS/ML UNITS SQ SCH (21:30)
[2023-01-19] MEDS: PIPERACILLIN/TAZOB 2.25 GM 2.25 GM in DEXTROSE 5%-WATER - 50 ML IVPB SCH ×3 (00:59→18:55)
[2023-01-19] MEDS ORDERED: SODIUM CHLORIDE 0.45% 1,000 ML IV SCH ×2 (05:00→16:24)
[2023-01-19] MEDS: GABAPENTIN 300 MG CAPSULE PO SCH ×3 (06:32→21:44)
[2023-01-19] MEDS: INSULIN SLIDING SCALE (NOVOLOG) 1 VIAL SQ SCH ×4 (06:32→21:48)
[2023-01-19] MEDS: HEPARIN NA (PORCINE) 5,000 UNITS/ML 1ML VIAL SQ SCH ×3 (06:33→21:42)
[2023-01-19] MEDS: MULTIVITAMINS (DAILY MVI) TABLET (FP) PO SCH (09:42)
[2023-01-19] MEDS: amLODIPine BESYLATE 5 MG TABLET (FP) PO SCH (09:42)
[2023-01-19] MEDS: VALSARTAN 80 MG TABLET PO SCH (09:42)
[2023-01-19 10:14] LABS: HEMATOCRIT 25.1 % (35.4-49); HEMOGLOBIN 8.4 GM/dL (11.7-16.9); MCH 28.6 pg (25.7-33.7); MCHC 33.4 g/dl (32.0-35.9); MEAN CELL VOLUME 85.8 fl (80-96); MEAN PLT VOLUME 6.9 fl (7.5-11.1); PLATELET COUNT 270 10^3/uL (134-434); RBC 2.92 M/mm3 (4.00-5.60); RDW 15.5 % (11.9-15.9); WHITE BLOOD COUNT 6.6 K/mm3 (4.0-10.0)
[2023-01-19 10:42] LABS: POTASSIUM 4.5 mmol/L (3.5-5.1)
[2023-01-19 10:53] LABS: ALBUMIN 2.8 g/dl (3.4-5.0); BILIRUBIN,TOTAL 0.3 mg/dL (0.2-1)
[2023-01-19 10:54] LABS: CALCIUM 8.5 mg/dL (8.5-10.1); TOT PROT 6.3 g/dl (6.4-8.2)
[2023-01-19 10:55] LABS: BLOOD UREA NITROGEN 27.1 mg/dL (7-18); MAGNESIUM 2.4 mg/dL (1.8-2.4)
[2023-01-19 10:57] LABS: CREATININE 2.2 mg/dL (0.55-1.3); PHOSPHOROUS 3.6 mg/dL (2.5-4.9)
[2023-01-19] MEDS: INSULIN (LEVEMIR) 100 UNITS/ML UNITS SQ SCH (21:44)
[2023-01-19] MEDS: ATORVASTATIN CA 10 MG TABLET (FP) PO SCH (21:44)
[2023-01-19] MEDS ORDERED: INSULIN (LEVEMIR) 100 UNITS/ML UNITS SQ ONE (22:20)
[2023-01-19] MEDS ORDERED: INSULIN (NOVOLOG) ASPART 100 UNITS/ML 10ML VIAL ONE (22:20)
[2023-01-20] MEDS: PIPERACILLIN/TAZOB 2.25 GM 2.25 GM in DEXTROSE 5%-WATER - 50 ML IVPB SCH ×2 (02:04→09:54)
[2023-01-20] MEDS: GABAPENTIN 300 MG CAPSULE PO SCH (05:48)
[2023-01-20] MEDS: HEPARIN NA (PORCINE) 5,000 UNITS/ML 1ML VIAL SQ SCH (05:48)
[2023-01-20] MEDS: INSULIN SLIDING SCALE (NOVOLOG) 1 VIAL SQ SCH ×2 (06:00→11:55)
[2023-01-20] MEDS: VALSARTAN 80 MG TABLET PO SCH (10:02)
[2023-01-20] MEDS: MULTIVITAMINS (DAILY MVI) TABLET (FP) PO SCH (10:02)
[2023-01-20] MEDS: amLODIPine BESYLATE 5 MG TABLET (FP) PO SCH (10:02)
[2023-01-20 10:43] VITALS: RESP 18
[2023-01-20 10:44] LABS: HEMATOCRIT 24.2 % (35.4-49); HEMOGLOBIN 8.4 GM/dL (11.7-16.9); MCH 29.3 pg (25.7-33.7); MCHC 34.7 g/dl (32.0-35.9); MEAN CELL VOLUME 84.4 fl (80-96); MEAN PLT VOLUME 7.1 fl (7.5-11.1); PLATELET COUNT 260 10^3/uL (134-434); RBC 2.87 M/mm3 (4.00-5.60); RDW 15.7 % (11.9-15.9)
[2023-01-20 11:08] LABS: POTASSIUM 4.7 mmol/L (3.5-5.1)
[2023-01-20 11:17] LABS: ALBUMIN 2.8 g/dl (3.4-5.0); CALCIUM 8.4 mg/dL (8.5-10.1); MAGNESIUM 2.3 mg/dL (1.8-2.4)
[2023-01-20 11:20] LABS: CREATININE 2.2 mg/dL (0.55-1.3)
[2023-01-20 11:22] LABS: BILIRUBIN,TOTAL 0.2 mg/dL (0.2-1); TOT PROT 6.3 g/dl (6.4-8.2)
[2023-01-20 14:37] VITALS: BP 128/83; PULSE 74; TEMP 98.6
== END 2023-01-20 15:07 | disposition home or self-care (01) | DRG 603 ==
LOC: JER 23:42 → JERBED 01-13 00:51 → J6S 01-14 15:58 → OBSVTOIN 01-17 09:50
PROVIDERS: ADMIT Internal Medicine; ATTEND Internal Medicine
DX: L03.116 Cellulitis of left lower limb (principal); N17.9 Acute kidney failure, unspecified; D48.9 Neoplasm of uncertain behavior, unspecified; E11.610 Type 2 diabetes mellitus with diabetic neuropathic arthropathy; L97.529 Non-pressure chronic ulcer of other part of left foot with unspecified severity; I13.10 Hypertensive heart and chronic kidney disease without heart failure, with stage 1 through stage 4 chronic kidney disease, or unspecified chronic kidney disease; E11.621 Type 2 diabetes mellitus with foot ulcer; N18.30 Chronic kidney disease, stage 3 unspecified; E78.5 Hyperlipidemia, unspecified; D63.8 Anemia in other chronic diseases classified elsewhere
CPT/HCPCS: 0241U-QW; 36415; 73630-TC-LT; 73718-TC-LT; 80048; 80053; 80061; 81003; 82728; 82962; 83036; 83540; 83550; 83735; 84100; 84466; 85025; 85027; 85045; 85610; 85651; 85730; 86140; 86850; 86900; 86901; 87040; 87070; 87086; 87186; 87205; 93005; 93010; 93970-TC; 99285-25; G0378; G0480; J1644

== ENCOUNTER 2023-02-01 22:43 | Emergency (ER) | payer OTHER, MEDICARE ==
[2023-02-01 22:51] VITALS: BP 95/60; PULSE 75; RESP 18; TEMP 98; BMI 25.0
== END 2023-02-02 02:54 | disposition home or self-care (01) ==
LOC: JER 22:43
DX: M79.671 Pain in right foot (principal)
CPT/HCPCS: 73630-TC-RT-FY; 99283-25

== ENCOUNTER 2023-02-17 14:15 | Inpatient (IN) | payer OTHER, MEDICARE ==
[2023-02-17] MEDS ORDERED: VANCOMYCIN 1,000 MG in DEXTROSE 5%-WATER - 250 ML IVPB ONE (15:12)
[2023-02-17] MEDS ORDERED: PIPERACILLIN/TAZOB 4.5 GM 4.5 GM in DEXTROSE 5%-WATER 100 ML IVPB ONE (15:12)
[2023-02-17] MEDS ORDERED: VANCOMYCIN 1 GRAM (PRE-DOCKED) 1,000 MG/250 ML BAG IVPB ONE ×3 (15:21→17:56)
[2023-02-17] MEDS ORDERED: PIPERACILLIN/TAZOB 4.5 GM 4.5 GM/100 ML BAG IVPB ONE (15:21)
[2023-02-17 16:31] LABS: BASO % 0.3 % (0-2.0); EOS % 1.4 % (0-4.5); HEMATOCRIT 28.4 % (35.4-49); HEMOGLOBIN 9.5 GM/dL (11.7-16.9); LYMPH % 7.9 % (8-40); MCH 28.1 pg (25.7-33.7); MCHC 33.4 g/dl (32.0-35.9); MEAN CELL VOLUME 84.1 fl (80-96); MEAN PLT VOLUME 7.1 fl (7.5-11.1); MONO % 6.2 % (3.8-10.2); NEUT % 84.2 % (42.8-82.8); PLATELET COUNT 300 10^3/uL (134-434); RBC 3.37 M/mm3 (4.00-5.60); RDW 14.9 % (11.9-15.9); WHITE BLOOD COUNT 10.6 K/mm3 (4.0-10.0)
[2023-02-17 16:49] LABS: INR 1.13 (0.83-1.09); PROTHROMBIN TIME (PATIENT) 13.1 SEC (9.7-13.0)
[2023-02-17 16:51] LABS: ACTIVATED PTT 32.6 SECONDS (25.2-36.5)
[2023-02-17 17:00] LABS: POTASSIUM 4.6 mmol/L (3.5-5.1)
[2023-02-17 17:01] LABS: ALBUMIN 3.5 g/dl (3.4-5.0); BLOOD UREA NITROGEN 36.2 mg/dL (7-18)
[2023-02-17 17:04] LABS: CREATININE 2.1 mg/dL (0.55-1.3)
[2023-02-17 17:07] LABS: BILIRUBIN,TOTAL 0.4 mg/dL (0.2-1); TOT PROT 7.6 g/dl (6.4-8.2)
[2023-02-17] MEDS ORDERED: LACTATED RINGERS SOLUTION 1000 ML INFUS.BAG IV ONE (18:42)
[2023-02-17 19:48] LABS: EPI CELLS 4 /uL (0-25.1); HYALINE CASTS 0 /uL (0-3.1); PH,URINE 5.5 (5.0-8.0); URINE APPEARANCE CLEAR; URINE BACTERIA 0 /uL (0-1359); URINE BILIRUBIN NEGATIVE (NEGATIVE); URINE COLOR YELLOW; URINE GLUCOSE (UA) NEGATIVE (NEGATIVE); URINE KETONE NEGATIVE (NEGATIVE); URINE LEUK ESTERASE NEGATIVE (NEGATIVE); URINE NITRITE NEGATIVE (NEGATIVE); URINE PROTEIN 1+ (NEGATIVE); URINE RBC 7 /uL (0-23.9); URINE UROBILINOGEN 0.2 mg/dL (0.2-1.0); URINE WBC 3 /uL (0-25.8)
[2023-02-18] MEDS: CLINDAMYCIN 300 MG PREMIX IVPB 300 MG/50 ML BAG IVPB SCH ×2 (02:34→09:47)
[2023-02-18] MEDS ORDERED: VANCOMYCIN 1 GRAM (PRE-DOCKED) 1,000 MG/250 ML BAG IVPB SCH (06:00)
[2023-02-18] MEDS: GABAPENTIN 300 MG CAPSULE PO SCH ×3 (08:06→21:27)
[2023-02-18] MEDS: INSULIN SLIDING SCALE (NOVOLOG) 1 VIAL SQ SCH ×3 (08:23→17:17)
[2023-02-18] MEDS ORDERED: PIPERACILLIN/TAZOB 2.25 GM 2.25 GM/50 ML BAG IVPB ONE (08:23)
[2023-02-18] MEDS: PIPERACILLIN/TAZOB 2.25 GM 2.25 GM in DEXTROSE 5%-WATER - 50 ML IVPB SCH ×4 (08:24→18:15)
[2023-02-18] MEDS: HEPARIN NA (PORCINE) 5,000 UNITS/ML 1ML VIAL SQ SCH ×3 (08:24→21:26)
[2023-02-18] MEDS: VALSARTAN 80 MG TABLET PO SCH ×2 (08:25→09:43)
[2023-02-18 09:09] LABS: HEMATOCRIT 25.8 % (35.4-49); HEMOGLOBIN 8.9 GM/dL (11.7-16.9); MCH 28.8 pg (25.7-33.7); MCHC 34.5 g/dl (32.0-35.9); MEAN CELL VOLUME 83.4 fl (80-96); MEAN PLT VOLUME 7.2 fl (7.5-11.1); PLATELET COUNT 275 10^3/uL (134-434); RBC 3.09 M/mm3 (4.00-5.60); RDW 14.9 % (11.9-15.9); WHITE BLOOD COUNT 5.5 K/mm3 (4.0-10.0)
[2023-02-18 09:25] LABS: POTASSIUM 4.6 mmol/L (3.5-5.1)
[2023-02-18 09:29] LABS: CALCIUM 8.6 mg/dL (8.5-10.1)
[2023-02-18 09:30] LABS: ALBUMIN 2.9 g/dl (3.4-5.0); BLOOD UREA NITROGEN 30.4 mg/dL (7-18); MAGNESIUM 2.2 mg/dL (1.8-2.4)
[2023-02-18 09:33] LABS: PHOSPHOROUS 3.6 mg/dL (2.5-4.9)
[2023-02-18 09:35] LABS: BILIRUBIN,TOTAL 0.4 mg/dL (0.2-1); TOT PROT 6.5 g/dl (6.4-8.2)
[2023-02-18] MEDS ORDERED: HEPARIN NA (PORCINE) 5,000 UNITS/ML 1ML VIAL ONE (13:38)
[2023-02-18] MEDS ORDERED: GABAPENTIN 300 MG CAPSULE ONE (13:38)
[2023-02-18] MEDS ORDERED: MEROPENEM 1 GM in DEXTROSE 5%-WATER 100 ML IVPB SCH (14:30)
[2023-02-18 17:03] VITALS: BMI 25.0
[2023-02-18] MEDS ORDERED: ACETAMINOPHEN 1000 MG/100 ML BAG IVPB PRN (21:16)
[2023-02-18] MEDS: ATORVASTATIN CA 10 MG TABLET (FP) PO SCH (21:26)
[2023-02-19] MEDS: PIPERACILLIN/TAZOB 2.25 GM 2.25 GM in DEXTROSE 5%-WATER - 50 ML IVPB SCH ×3 (01:10→17:38)
[2023-02-19] MEDS ORDERED: PIPERACILLIN/TAZOB 2.25 GM 2.25 GM in DEXTROSE 5%-WATER - 50 ML IVPB SCH (03:00)
[2023-02-19] MEDS ORDERED: VANCOMYCIN 1 GRAM (PRE-DOCKED) 1,000 MG/250 ML BAG IVPB SCH (06:00)
[2023-02-19] MEDS: GABAPENTIN 300 MG CAPSULE PO SCH ×3 (06:22→22:25)
[2023-02-19] MEDS: HEPARIN NA (PORCINE) 5,000 UNITS/ML 1ML VIAL SQ SCH ×3 (06:22→22:25)
[2023-02-19] MEDS: INSULIN SLIDING SCALE (NOVOLOG) 1 VIAL SQ SCH ×3 (06:23→16:20)
[2023-02-19 07:59] LABS: BASO % 0.4 % (0-2.0); EOS % 5.2 % (0-4.5); HEMOGLOBIN 9.3 GM/dL (11.7-16.9); LYMPH % 16.9 % (8-40); MCH 28.4 pg (25.7-33.7); MCHC 33.2 g/dl (32.0-35.9); MEAN CELL VOLUME 85.5 fl (80-96); MEAN PLT VOLUME 7.1 fl (7.5-11.1); MONO % 10.6 % (3.8-10.2); NEUT % 66.9 % (42.8-82.8); PLATELET COUNT 288 10^3/uL (134-434); RBC 3.28 M/mm3 (4.00-5.60); RDW 14.9 % (11.9-15.9); WHITE BLOOD COUNT 4.6 K/mm3 (4.0-10.0)
[2023-02-19 08:08] LABS: POTASSIUM 4.9 mmol/L (3.5-5.1)
[2023-02-19 08:14] LABS: CALCIUM 8.7 mg/dL (8.5-10.1)
[2023-02-19 08:15] LABS: BLOOD UREA NITROGEN 32.1 mg/dL (7-18)
[2023-02-19 08:18] LABS: BILIRUBIN,TOTAL 0.4 mg/dL (0.2-1); CREATININE 2.2 mg/dL (0.55-1.3); TOT PROT 6.7 g/dl (6.4-8.2)
[2023-02-19] MEDS: VALSARTAN 80 MG TABLET PO SCH (10:20)
[2023-02-19] MEDS ORDERED: AMMONIUM LACTATE 12% LOTION 225 GM BOTTLE TP PRN (14:30)
[2023-02-19] MEDS: ATORVASTATIN CA 10 MG TABLET (FP) PO SCH (22:25)
[2023-02-20] MEDS: PIPERACILLIN/TAZOB 2.25 GM 2.25 GM in DEXTROSE 5%-WATER - 50 ML IVPB SCH ×2 (02:46→09:22)
[2023-02-20] MEDS ORDERED: ACETAMINOPHEN 1000 MG/100 ML BAG IVPB PRN (03:17)
[2023-02-20] MEDS: HEPARIN NA (PORCINE) 5,000 UNITS/ML 1ML VIAL SQ SCH ×3 (06:24→22:21)
[2023-02-20] MEDS: INSULIN SLIDING SCALE (NOVOLOG) 1 VIAL SQ SCH ×3 (06:25→16:57)
[2023-02-20] MEDS ORDERED: LACTATED RINGERS SOLUTION 1,000 ML/1,000 ML INFUS.BAG IV SCH (07:45)
[2023-02-20] MEDS: GABAPENTIN 300 MG CAPSULE PO SCH ×2 (09:20→22:21)
[2023-02-20] MEDS: VALSARTAN 80 MG TABLET PO SCH (09:22)
[2023-02-20] MEDS ORDERED: amLODIPine BESYLATE 5 MG TABLET (FP) PO SCH (10:00)
[2023-02-20 10:38] LABS: BASO % 0.5 % (0-2.0); EOS % 4.9 % (0-4.5); HEMATOCRIT 24.3 % (35.4-49); HEMOGLOBIN 8.2 GM/dL (11.7-16.9); LYMPH % 25.1 % (8-40); MCH 28.3 pg (25.7-33.7); MCHC 33.6 g/dl (32.0-35.9); MEAN CELL VOLUME 84.1 fl (80-96); MEAN PLT VOLUME 6.9 fl (7.5-11.1); MONO % 11.3 % (3.8-10.2); NEUT % 58.2 % (42.8-82.8); PLATELET COUNT 272 10^3/uL (134-434); RBC 2.89 M/mm3 (4.00-5.60); RDW 14.9 % (11.9-15.9); WHITE BLOOD COUNT 3.7 K/mm3 (4.0-10.0)
[2023-02-20 11:17] LABS: POTASSIUM 4.8 mmol/L (3.5-5.1)
[2023-02-20 11:19] LABS: ALBUMIN 2.7 g/dl (3.4-5.0); CALCIUM 8.4 mg/dL (8.5-10.1)
[2023-02-20 11:20] LABS: BLOOD UREA NITROGEN 29.7 mg/dL (7-18); MAGNESIUM 2.4 mg/dL (1.8-2.4)
[2023-02-20 11:23] LABS: CREATININE 2.2 mg/dL (0.55-1.3); PHOSPHOROUS 3.6 mg/dL (2.5-4.9)
[2023-02-20 11:24] LABS: BILIRUBIN,TOTAL 0.2 mg/dL (0.2-1); TOT PROT 6.2 g/dl (6.4-8.2)
[2023-02-20] MEDS: INSULIN (LEVEMIR) 100 UNITS/ML UNITS SQ SCH (11:52)
[2023-02-20] MEDS: CEFTRIAXONE 1 GM in DEXTROSE 5%-WATER - 50 ML IVPB SCH (16:02)
[2023-02-20] MEDS: ATORVASTATIN CA 10 MG TABLET (FP) PO SCH (22:21)
[2023-02-21] MEDS: HEPARIN NA (PORCINE) 5,000 UNITS/ML 1ML VIAL SQ SCH ×3 (06:18→21:09)
[2023-02-21] MEDS: INSULIN SLIDING SCALE (NOVOLOG) 1 VIAL SQ SCH ×3 (06:18→17:30)
[2023-02-21 08:45] LABS: BASO % 0.5 % (0-2.0); EOS % 2.5 % (0-4.5); HEMATOCRIT 25.5 % (35.4-49); HEMOGLOBIN 8.8 GM/dL (11.7-16.9); LYMPH % 19.3 % (8-40); MCH 28.7 pg (25.7-33.7); MCHC 34.4 g/dl (32.0-35.9); MEAN CELL VOLUME 83.5 fl (80-96); MONO % 8.2 % (3.8-10.2); NEUT % 69.5 % (42.8-82.8); PLATELET COUNT 286 10^3/uL (134-434); RBC 3.05 M/mm3 (4.00-5.60); RDW 14.9 % (11.9-15.9); WHITE BLOOD COUNT 5.9 K/mm3 (4.0-10.0)
[2023-02-21 09:00] LABS: POTASSIUM 4.9 mmol/L (3.5-5.1)
[2023-02-21 09:14] LABS: CALCIUM 8.7 mg/dL (8.5-10.1)
[2023-02-21 09:15] LABS: BLOOD UREA NITROGEN 28.7 mg/dL (7-18); MAGNESIUM 2.3 mg/dL (1.8-2.4)
[2023-02-21 09:19] LABS: BILIRUBIN,TOTAL 0.2 mg/dL (0.2-1); TOT PROT 6.6 g/dl (6.4-8.2)
[2023-02-21 09:20] LABS: CREATININE 1.8 mg/dL (0.55-1.3); PHOSPHOROUS 3.6 mg/dL (2.5-4.9)
[2023-02-21] MEDS: GABAPENTIN 300 MG CAPSULE PO SCH ×2 (10:35→21:09)
[2023-02-21] MEDS: VALSARTAN 80 MG TABLET PO SCH (10:36)
[2023-02-21] MEDS: CEFTRIAXONE 1 GM in DEXTROSE 5%-WATER - 50 ML IVPB SCH (10:36)
[2023-02-21] MEDS: INSULIN (LEVEMIR) 100 UNITS/ML UNITS SQ SCH (10:36)
[2023-02-21] MEDS ORDERED: BENZOCAINE/MENTH/CETYLPYRD CL 1 EACH LOZENGE MM PRN (12:42)
[2023-02-21] MEDS ORDERED: ACETAMINOPHEN 325 MG TABLET (FP) PO PRN (15:26)
[2023-02-21] MEDS: MELATONIN 5 MG TABLETS PO SCH (21:09)
[2023-02-21] MEDS: ATORVASTATIN CA 10 MG TABLET (FP) PO SCH (21:09)
[2023-02-22] MEDS: INSULIN SLIDING SCALE (NOVOLOG) 1 VIAL SQ SCH ×3 (06:30→17:18)
[2023-02-22] MEDS: HEPARIN NA (PORCINE) 5,000 UNITS/ML 1ML VIAL SQ SCH ×3 (06:31→21:27)
[2023-02-22 08:44] LABS: BASO % 0.4 % (0-2.0); EOS % 4.2 % (0-4.5); HEMATOCRIT 27.6 % (35.4-49); HEMOGLOBIN 9.1 GM/dL (11.7-16.9); LYMPH % 25.4 % (8-40); MCH 28.2 pg (25.7-33.7); MCHC 32.9 g/dl (32.0-35.9); MEAN CELL VOLUME 85.7 fl (80-96); MONO % 10.7 % (3.8-10.2); NEUT % 59.3 % (42.8-82.8); PLATELET COUNT 303 10^3/uL (134-434); RBC 3.22 M/mm3 (4.00-5.60); RDW 14.5 % (11.9-15.9); WHITE BLOOD COUNT 5.1 K/mm3 (4.0-10.0)
[2023-02-22 08:52] LABS: POTASSIUM 4.9 mmol/L (3.5-5.1)
[2023-02-22 09:08] LABS: ALBUMIN 3.2 g/dl (3.4-5.0); BLOOD UREA NITROGEN 28.3 mg/dL (7-18); MAGNESIUM 2.3 mg/dL (1.8-2.4)
[2023-02-22 09:09] LABS: CALCIUM 8.8 mg/dL (8.5-10.1)
[2023-02-22 09:11] LABS: CREATININE 1.9 mg/dL (0.55-1.3); PHOSPHOROUS 4.1 mg/dL (2.5-4.9)
[2023-02-22 09:13] LABS: BILIRUBIN,TOTAL 0.2 mg/dL (0.2-1); TOT PROT 6.7 g/dl (6.4-8.2)
[2023-02-22] MEDS ORDERED: cefTRIAXone SODIUM 1 GM VIAL ONE (10:27)
[2023-02-22] MEDS: CEFTRIAXONE 1 GM in DEXTROSE 5%-WATER - 50 ML IVPB SCH (10:31)
[2023-02-22] MEDS: VALSARTAN 80 MG TABLET PO SCH (10:31)
[2023-02-22] MEDS: INSULIN (LEVEMIR) 100 UNITS/ML UNITS SQ SCH (10:32)
[2023-02-22] MEDS: GABAPENTIN 300 MG CAPSULE PO SCH ×2 (10:32→21:27)
[2023-02-22] MEDS: COLLAGENASE CLOSTRIDIUM HIST. 30 GRAMS TUBE TP SCH (14:42)
[2023-02-22] MEDS: ATORVASTATIN CA 10 MG TABLET (FP) PO SCH (21:27)
[2023-02-22] MEDS: MELATONIN 5 MG TABLETS PO SCH (21:27)
[2023-02-23] MEDS: HEPARIN NA (PORCINE) 5,000 UNITS/ML 1ML VIAL SQ SCH ×2 (05:31→15:08)
[2023-02-23] MEDS: INSULIN SLIDING SCALE (NOVOLOG) 1 VIAL SQ SCH ×3 (06:09→17:00)
[2023-02-23] MEDS: VALSARTAN 80 MG TABLET PO SCH (09:33)
[2023-02-23] MEDS: INSULIN (LEVEMIR) 100 UNITS/ML UNITS SQ SCH (09:33)
[2023-02-23] MEDS: GABAPENTIN 300 MG CAPSULE PO SCH (09:33)
[2023-02-23] MEDS: COLLAGENASE CLOSTRIDIUM HIST. 30 GRAMS TUBE TP SCH ×2 (09:34→16:52)
[2023-02-23] MEDS: CEFTRIAXONE 1 GM in DEXTROSE 5%-WATER - 50 ML IVPB SCH (09:34)
[2023-02-23 10:05] LABS: BASO % 0.5 % (0-2.0); EOS % 3.8 % (0-4.5); HEMATOCRIT 27.3 % (35.4-49); HEMOGLOBIN 9.3 GM/dL (11.7-16.9); LYMPH % 23.9 % (8-40); MCH 28.8 pg (25.7-33.7); MCHC 34.2 g/dl (32.0-35.9); MEAN CELL VOLUME 84.1 fl (80-96); MEAN PLT VOLUME 7.1 fl (7.5-11.1); MONO % 7.9 % (3.8-10.2); NEUT % 63.9 % (42.8-82.8); PLATELET COUNT 298 10^3/uL (134-434); RBC 3.25 M/mm3 (4.00-5.60); RDW 14.8 % (11.9-15.9); WHITE BLOOD COUNT 5.6 K/mm3 (4.0-10.0)
[2023-02-23 10:35] LABS: POTASSIUM 4.8 mmol/L (3.5-5.1)
[2023-02-23 10:56] LABS: ALBUMIN 3.4 g/dl (3.4-5.0); BLOOD UREA NITROGEN 30.7 mg/dL (7-18); CALCIUM 8.9 mg/dL (8.5-10.1)
[2023-02-23 10:59] LABS: CREATININE 1.8 mg/dL (0.55-1.3)
[2023-02-23 11:00] LABS: TOT PROT 7.2 g/dl (6.4-8.2)
[2023-02-23 11:01] LABS: BILIRUBIN,TOTAL 0.2 mg/dL (0.2-1)
[2023-02-23 11:23] LABS: MAGNESIUM 2.4 mg/dL (1.8-2.4)
[2023-02-23 13:52] VITALS: BP 151/82; PULSE 70; RESP 16; TEMP 97.8
== END 2023-02-23 18:06 | disposition home or self-care (01) | DRG 603 ==
LOC: JER 14:15 → JERBED 19:08 → J4S 02-18 14:03
PROVIDERS: ADMIT Internal Medicine; ATTEND Internal Medicine
DX: L03.116 Cellulitis of left lower limb (principal); L02.612 Cutaneous abscess of left foot; I13.0 Hypertensive heart and chronic kidney disease with heart failure and stage 1 through stage 4 chronic kidney disease, or unspecified chronic kidney disease; I50.32 Chronic diastolic (congestive) heart failure; L97.518 Non-pressure chronic ulcer of other part of right foot with other specified severity; M86.672 Other chronic osteomyelitis, left ankle and foot; E11.69 Type 2 diabetes mellitus with other specified complication; B95.62 Methicillin resistant Staphylococcus aureus infection as the cause of diseases classified elsewhere; E11.22 Type 2 diabetes mellitus with diabetic chronic kidney disease; N18.9 Chronic kidney disease, unspecified; K21.9 Gastro-esophageal reflux disease without esophagitis; E11.40 Type 2 diabetes mellitus with diabetic neuropathy, unspecified; D63.1 Anemia in chronic kidney disease; D48.19 Other specified neoplasm of uncertain behavior of connective and other soft tissue; E11.621 Type 2 diabetes mellitus with foot ulcer; R22.42 Localized swelling, mass and lump, left lower limb; Z89.421 Acquired absence of other right toe(s)
CPT/HCPCS: 36415; 73610-TC-LT-FY; 73630-TC-LT; 73700-TC-RT; 80053; 81003; 82550; 82728; 82962; 83540; 83550; 83605; 83735; 84100; 84466; 85025; 85027; 85045; 85610; 85730; 86850; 86900; 86901; 87040; 87070; 87086; 87186; 87205; 93005; 93010; 97116-GP; 97161-GP; 99285-25; G0463-25; J1644

== ENCOUNTER 2023-08-29 23:33 | Inpatient (IN) | payer OTHER, MEDICARE ==
[2023-08-29 23:38] VITALS: BMI 27.3
[2023-08-30] MEDS: BACITRACIN 0.9 GM PACKET TP ONE (00:38)
[2023-08-30] MEDS ORDERED: BACITRACIN ZINC 15 GM TUBE TOPICAL OINTMENT ONE (00:38)
[2023-08-30 01:45] LABS: BASO % 0.5 % (0-2.0); EOS % 1.8 % (0-4.5); HEMATOCRIT 30.4 % (35.4-49); HEMOGLOBIN 10.3 GM/dL (11.7-16.9); MCH 29.5 pg (25.7-33.7); MCHC 33.9 g/dl (32.0-35.9); MEAN CELL VOLUME 87.1 fl (80-96); MEAN PLT VOLUME 6.6 fl (7.5-11.1); MONO % 8.5 % (3.8-10.2); NEUT % 71.2 % (42.8-82.8); PLATELET COUNT 265 10^3/uL (134-434); RBC 3.49 M/mm3 (4.00-5.60); RDW 14.3 % (11.9-15.9); VENOUS BASE EXCESS -4.6 mmol/L (-2-2); VENOUS O2 SATURATION 83.5 % (70-80); VENOUS PH 7.374 (7.310-7.410); WHITE BLOOD COUNT 7.1 K/mm3 (4.0-10.0)
[2023-08-30] MEDS: SODIUM CHLORIDE 500 ML IV STA (01:51)
[2023-08-30 02:03] LABS: POTASSIUM 4.8 mmol/L (3.5-5.1)
[2023-08-30 02:05] LABS: CALCIUM 8.3 mg/dL (8.5-10.1)
[2023-08-30 02:06] LABS: ALBUMIN 3.1 g/dl (3.4-5.0); BLOOD UREA NITROGEN 34.3 mg/dL (7-18)
[2023-08-30 02:09] LABS: CREATININE 2.8 mg/dL (0.55-1.3)
[2023-08-30 02:10] LABS: BILIRUBIN,TOTAL 0.3 mg/dL (0.2-1); TOT PROT 6.8 g/dl (6.4-8.2)
[2023-08-30 02:15] LABS: INR 0.96 (0.83-1.09); PROTHROMBIN TIME (PATIENT) 10.9 SEC (9.7-13.0)
[2023-08-30 02:17] LABS: ACTIVATED PTT 32.9 SECONDS (25.2-36.5)
[2023-08-30] MEDS: PIPERACILLIN/TAZOB 3.375 GM 3.375 GM in DEXTROSE 5%-WATER - 50 ML IVPB ONE (02:42)
[2023-08-30] MEDS: VANCOMYCIN 1,000 MG in DEXTROSE 5%-WATER - 250 ML IVPB ONE (02:42)
[2023-08-30] MEDS ORDERED: PIPERACILLIN/TAZOB 3.375 GM 3.375 GM/50 ML BAG IVPB ONE (02:44)
[2023-08-30] MEDS ORDERED: VANCOMYCIN 1 GRAM (PRE-DOCKED) 1,000 MG/250 ML BAG IVPB ONE (02:45)
[2023-08-30 03:48] LABS: ERYTHROCYTE SEDIMENTATION RATE 70 mm/hr (0-20)
[2023-08-30] MEDS: SODIUM CHLORIDE 1,000 ML IV SCH (05:45)
[2023-08-30] MEDS: VANCOMYCIN 1,000 MG in DEXTROSE 5%-WATER - 250 ML IVPB SCH (05:52)
[2023-08-30] MEDS: HEPARIN NA (PORCINE) 5,000 UNITS/ML 1ML VIAL SQ SCH (05:59)
[2023-08-30] MEDS ORDERED: VANCOMYCIN 1,000 MG in DEXTROSE 5%-WATER - 250 ML IVPB SCH ×3 (08:00→22:00)
[2023-08-30 08:10] LABS: BASO % 0.2 % (0-2.0); EOS % 1.6 % (0-4.5); HEMATOCRIT 31.7 % (35.4-49); HEMOGLOBIN 10.7 GM/dL (11.7-16.9); LYMPH % 15.2 % (8-40); MCH 29.8 pg (25.7-33.7); MCHC 33.8 g/dl (32.0-35.9); MEAN CELL VOLUME 88.3 fl (80-96); MEAN PLT VOLUME 6.7 fl (7.5-11.1); MONO % 7.9 % (3.8-10.2); NEUT % 75.1 % (42.8-82.8); PLATELET COUNT 239 10^3/uL (134-434); RBC 3.59 M/mm3 (4.00-5.60); RDW 14.3 % (11.9-15.9); WHITE BLOOD COUNT 5.8 K/mm3 (4.0-10.0)
[2023-08-30 08:26] LABS: POTASSIUM 4.6 mmol/L (3.5-5.1)
[2023-08-30 08:49] LABS: ALBUMIN 3.2 g/dl (3.4-5.0); BLOOD UREA NITROGEN 35.2 mg/dL (7-18); CALCIUM 8.4 mg/dL (8.5-10.1); MAGNESIUM 2.3 mg/dL (1.8-2.4)
[2023-08-30 08:52] LABS: CREATININE 2.3 mg/dL (0.55-1.3); PHOSPHOROUS 3.1 mg/dL (2.5-4.9)
[2023-08-30 08:53] LABS: TOT PROT 7.3 g/dl (6.4-8.2)
[2023-08-30 08:56] LABS: BILIRUBIN,TOTAL 0.5 mg/dL (0.2-1)
[2023-08-30] MEDS: PIPERACILLIN/TAZOB 2.25 GM 2.25 GM in DEXTROSE 5%-WATER - 50 ML IVPB SCH ×3 (10:06→17:15)
[2023-08-30] MEDS ORDERED: INSULIN (NOVOLOG) ASPART 100 UNITS/ML 10ML VIAL ONE ×2 (11:29→23:33)
[2023-08-30] MEDS: GABAPENTIN 300 MG CAPSULE PO SCH (11:31)
[2023-08-30] MEDS: INSULIN ASPART SLIDING SCALE (NOVOLOG) 1 VIAL SQ SCH (11:33)
[2023-08-30] MEDS: VALSARTAN 80 MG TABLET PO SCH (11:36)
[2023-08-30] MEDS: PANTOPRAZOLE 40 MG TABLET PO SCH (12:34)
[2023-08-30] MEDS: VALSARTAN 160 MG TABLET PO SCH (23:34)
[2023-08-30] MEDS: INSULIN (LEVEMIR) 100 UNITS/ML UNITS SQ SCH (23:36)
[2023-08-31] MEDS ORDERED: VANCOMYCIN/WATER FOR INJ (PEG) 1,000 MG/200 ML BAG IVPB SCH (02:30)
[2023-08-31 08:22] LABS: BASO % 0.2 % (0-2.0); EOS % 2.1 % (0-4.5); HEMATOCRIT 31.3 % (35.4-49); HEMOGLOBIN 10.7 GM/dL (11.7-16.9); MCHC 34.2 g/dl (32.0-35.9); MEAN CELL VOLUME 87.8 fl (80-96); MEAN PLT VOLUME 6.8 fl (7.5-11.1); MONO % 6.5 % (3.8-10.2); NEUT % 81.2 % (42.8-82.8); PLATELET COUNT 233 10^3/uL (134-434); RBC 3.56 M/mm3 (4.00-5.60); RDW 14.8 % (11.9-15.9); WHITE BLOOD COUNT 6.1 K/mm3 (4.0-10.0)
[2023-08-31 08:43] LABS: POTASSIUM 4.4 mmol/L (3.5-5.1)
[2023-08-31 08:59] LABS: BLOOD UREA NITROGEN 27.1 mg/dL (7-18); CALCIUM 8.6 mg/dL (8.5-10.1); MAGNESIUM 2.2 mg/dL (1.8-2.4)
[2023-08-31 09:04] LABS: BILIRUBIN,TOTAL 0.5 mg/dL (0.2-1); TOT PROT 6.8 g/dl (6.4-8.2)
[2023-08-31] MEDS ORDERED: VANCOMYCIN 1,000 MG in DEXTROSE 5%-WATER - 250 ML IVPB SCH (10:00)
[2023-08-31] MEDS: COLLAGENASE CLOSTRIDIUM HIST. 30 GRAMS TUBE TP SCH (10:53)
[2023-08-31] MEDS: amLODIPine BESYLATE 5 MG TABLET (FP) PO SCH (11:54)
[2023-08-31] MEDS ORDERED: INSULIN (NOVOLOG) ASPART 100 UNITS/ML 10ML VIAL ONE ×2 (12:09→17:12)
[2023-08-31] MEDS: SODIUM CHLORIDE 0.45% 1,000 ML IV SCH (17:53)
[2023-08-31] MEDS: INSULIN (LEVEMIR) 100 UNITS/ML UNITS SQ SCH (22:49)
[2023-09-01] MEDS: hydrALAZINE HCL 20 MG/ML VIAL IVPUSH ONE (04:50)
[2023-09-01] MEDS: hydrALAZINE HCL 10 MG TABLET PO ONE (05:53)
[2023-09-01 08:31] LABS: BASO % 0.3 % (0-2.0); EOS % 3.7 % (0-4.5); HEMATOCRIT 29.8 % (35.4-49); HEMOGLOBIN 10.1 GM/dL (11.7-16.9); LYMPH % 16.7 % (8-40); MCH 29.8 pg (25.7-33.7); MCHC 33.8 g/dl (32.0-35.9); MEAN CELL VOLUME 88.3 fl (80-96); MEAN PLT VOLUME 7.2 fl (7.5-11.1); MONO % 9.8 % (3.8-10.2); NEUT % 69.5 % (42.8-82.8); PLATELET COUNT 235 10^3/uL (134-434); RBC 3.38 M/mm3 (4.00-5.60); RDW 14.3 % (11.9-15.9); WHITE BLOOD COUNT 4.8 K/mm3 (4.0-10.0)
[2023-09-01 08:37] LABS: HEMATOCRIT 29.9 % (35.4-49); MCH 29.6 pg (25.7-33.7); MCHC 33.5 g/dl (32.0-35.9); MEAN CELL VOLUME 88.2 fl (80-96); MEAN PLT VOLUME 7.5 fl (7.5-11.1); PLATELET COUNT 212 10^3/uL (134-434); RBC 3.39 M/mm3 (4.00-5.60); RDW 14.5 % (11.9-15.9); WHITE BLOOD COUNT 4.9 K/mm3 (4.0-10.0)
[2023-09-01 08:56] VITALS: RESP 20
[2023-09-01] MEDS: amLODIPine BESYLATE 10 MG TABLET (FP) PO SCH (09:16)
[2023-09-01 09:29] LABS: POTASSIUM 4.5 mmol/L (3.5-5.1)
[2023-09-01 09:37] LABS: CALCIUM 8.6 mg/dL (8.5-10.1)
[2023-09-01 09:38] LABS: ALBUMIN 2.9 g/dl (3.4-5.0); BLOOD UREA NITROGEN 23.3 mg/dL (7-18); MAGNESIUM 2.1 mg/dL (1.8-2.4)
[2023-09-01 09:40] LABS: PHOSPHOROUS 2.7 mg/dL (2.5-4.9)
[2023-09-01 09:41] LABS: CREATININE 1.8 mg/dL (0.55-1.3)
[2023-09-01 09:42] LABS: BILIRUBIN,TOTAL 0.3 mg/dL (0.2-1); TOT PROT 6.6 g/dl (6.4-8.2)
[2023-09-01 11:06] VITALS: BP 152/88; PULSE 75; TEMP 98.2
== END 2023-09-01 11:06 | disposition home or self-care (01) | DRG 638 ==
LOC: JER 23:33 → JERBED 08-30 03:30 → J8W 08-30 04:27
PROVIDERS: ADMIT Student in an Organized Health Care Education/Training Program; ATTEND Internal Medicine
DX: E11.621 Type 2 diabetes mellitus with foot ulcer (principal); I13.0 Hypertensive heart and chronic kidney disease with heart failure and stage 1 through stage 4 chronic kidney disease, or unspecified chronic kidney disease; L97.418 Non-pressure chronic ulcer of right heel and midfoot with other specified severity; L97.428 Non-pressure chronic ulcer of left heel and midfoot with other specified severity; I50.32 Chronic diastolic (congestive) heart failure; E78.5 Hyperlipidemia, unspecified; E11.22 Type 2 diabetes mellitus with diabetic chronic kidney disease; N18.9 Chronic kidney disease, unspecified; K21.9 Gastro-esophageal reflux disease without esophagitis; L08.9 Local infection of the skin and subcutaneous tissue, unspecified; I16.0 Hypertensive urgency; E11.610 Type 2 diabetes mellitus with diabetic neuropathic arthropathy; D48.9 Neoplasm of uncertain behavior, unspecified; N17.9 Acute kidney failure, unspecified; D64.9 Anemia, unspecified; Z89.421 Acquired absence of other right toe(s)
CPT/HCPCS: 36415; 70450-TC; 73630-TC-RT-FY; 80048; 80053; 82570; 82728; 82803; 82962; 83036; 83540; 83550; 83605; 83735; 84100; 84133; 84300; 84466; 84484; 85025; 85027; 85045; 85610; 85651; 85730; 86140; 87040; 87070; 87186; 87205; 93005; 93010; 99285-25; G0480; J1644

== ENCOUNTER 2023-09-22 14:04 | Inpatient (IN) | payer OTHER, MEDICARE ==
[2023-09-22] MEDS ORDERED: VANCOMYCIN 1 GRAM (PRE-DOCKED) 1,000 MG/250 ML BAG IVPB ONE (16:41)
[2023-09-22 16:54] LABS: BASO % 0.2 % (0-2.0); EOS % 1.2 % (0-4.5); HEMOGLOBIN 12.2 GM/dL (11.7-16.9); LYMPH % 8.3 % (8-40); MCH 30.3 pg (25.7-33.7); MCHC 33.9 g/dl (32.0-35.9); MEAN CELL VOLUME 89.3 fl (80-96); MEAN PLT VOLUME 6.6 fl (7.5-11.1); MONO % 8.1 % (3.8-10.2); NEUT % 82.2 % (42.8-82.8); PLATELET COUNT 245 10^3/uL (134-434); RBC 4.03 M/mm3 (4.00-5.60); RDW 15.2 % (11.9-15.9); WHITE BLOOD COUNT 8.2 K/mm3 (4.0-10.0)
[2023-09-22 17:09] LABS: INR 0.95 (0.83-1.09); PROTHROMBIN TIME (PATIENT) 10.9 SEC (9.7-13.0)
[2023-09-22 17:12] LABS: ACTIVATED PTT 33.7 SECONDS (25.2-36.5)
[2023-09-22] MEDS: VANCOMYCIN 1,000 MG in DEXTROSE 5%-WATER - 250 ML IVPB ONE (17:20)
[2023-09-22 17:24] LABS: BLOOD UREA NITROGEN 33.4 mg/dL (7-18); CALCIUM 9.7 mg/dL (8.5-10.1)
[2023-09-22 17:25] LABS: ALBUMIN 3.9 g/dl (3.4-5.0)
[2023-09-22 17:28] LABS: CREATININE 2.3 mg/dL (0.55-1.3)
[2023-09-22 17:29] LABS: BILIRUBIN,TOTAL 0.7 mg/dL (0.2-1); TOT PROT 8.2 g/dl (6.4-8.2)
[2023-09-22 18:05] LABS: ERYTHROCYTE SEDIMENTATION RATE 70 mm/hr (0-20)
[2023-09-22] MEDS ORDERED: PIPERACILLIN/TAZOB 4.5 GM 4.5 GM/100 ML BAG IVPB ONE (19:44)
[2023-09-22] MEDS: PIPERACILLIN/TAZOB 4.5 GM 4.5 GM in DEXTROSE 5%-WATER 100 ML IVPB ONE (19:53)
[2023-09-22] MEDS ORDERED: HEPARIN NA (PORCINE) 5,000 UNITS/ML 1ML VIAL ONE (21:59)
[2023-09-22] MEDS ORDERED: ATORVASTATIN CA 10 MG TABLET (FP) ONE (21:59)
[2023-09-22] MEDS ORDERED: GABAPENTIN 300 MG CAPSULE ONE (21:59)
[2023-09-22] MEDS ORDERED: INSULIN ASPART SLIDING SCALE (NOVOLOG) 1 VIAL SQ ONE (22:00)
[2023-09-22] MEDS: HEPARIN NA (PORCINE) 5,000 UNITS/ML 1ML VIAL SQ SCH (22:08)
[2023-09-22] MEDS: ATORVASTATIN CA 10 MG TABLET (FP) PO SCH (22:08)
[2023-09-22] MEDS: INSULIN ASPART SLIDING SCALE (NOVOLOG) 1 VIAL SQ SCH (22:09)
[2023-09-22] MEDS: GABAPENTIN 300 MG CAPSULE PO SCH (22:09)
[2023-09-23] MEDS ORDERED: INSULIN (LEVEMIR) 100 UNITS/ML UNITS SQ ONE (00:46)
[2023-09-23] MEDS: INSULIN (LEVEMIR) 100 UNITS/ML UNITS SQ ONE (01:08)
[2023-09-23] MEDS: SODIUM CHLORIDE 1,000 ML IV SCH (01:08)
[2023-09-23] MEDS ORDERED: PIPERACILLIN/TAZOB 2.25 GM 2.25 GM/50 ML BAG IVPB ONE ×3 (03:10→11:13)
[2023-09-23] MEDS: PIPERACILLIN/TAZOB 2.25 GM 2.25 GM in DEXTROSE 5%-WATER - 50 ML IVPB SCH ×2 (03:29→14:43)
[2023-09-23 06:12] LABS: HEMATOCRIT 34.8 % (35.4-49); HEMOGLOBIN 11.6 GM/dL (11.7-16.9); MCH 30.2 pg (25.7-33.7); MCHC 33.2 g/dl (32.0-35.9); MEAN CELL VOLUME 90.8 fl (80-96); MEAN PLT VOLUME 6.8 fl (7.5-11.1); PLATELET COUNT 193 10^3/uL (134-434); RBC 3.83 M/mm3 (4.00-5.60); RDW 15.5 % (11.9-15.9); WHITE BLOOD COUNT 6.2 K/mm3 (4.0-10.0)
[2023-09-23] MEDS ORDERED: HEPARIN NA (PORCINE) 5,000 UNITS/ML 1ML VIAL ONE ×3 (06:19→22:21)
[2023-09-23] MEDS ORDERED: GABAPENTIN 300 MG CAPSULE ONE ×3 (06:19→14:08)
[2023-09-23 06:32] LABS: POTASSIUM 4.8 mmol/L (3.5-5.1)
[2023-09-23 06:35] LABS: ALBUMIN 3.3 g/dl (3.4-5.0); BLOOD UREA NITROGEN 30.9 mg/dL (7-18); CALCIUM 8.8 mg/dL (8.5-10.1); MAGNESIUM 2.4 mg/dL (1.8-2.4)
[2023-09-23 06:38] LABS: CREATININE 2.3 mg/dL (0.55-1.3); PHOSPHOROUS 3.6 mg/dL (2.5-4.9)
[2023-09-23 06:40] LABS: BILIRUBIN,TOTAL 0.7 mg/dL (0.2-1); TOT PROT 7.1 g/dl (6.4-8.2)
[2023-09-23] MEDS ORDERED: VALSARTAN 160 MG TABLET PO SCH (10:00)
[2023-09-23] MEDS: SODIUM CHLORIDE 0.45% 1,000 ML IV SCH (15:25)
[2023-09-23] MEDS ORDERED: INSULIN ASPART SLIDING SCALE (NOVOLOG) 1 VIAL SQ ONE (16:33)
[2023-09-23] MEDS: VALSARTAN 160 MG TABLET PO SCH (16:36)
[2023-09-23] MEDS ORDERED: ACETAMINOPHEN INJECTION 100 ML IVPB ONE (16:41)
[2023-09-23] MEDS ORDERED: AMPICILLIN NA/SULBACTAM NA 3 GM/100 ML BAG IVPB ONE ×2 (18:01→21:10)
[2023-09-23] MEDS: AMPICILLIN NA/SULBACTAM NA 3 GM in SODIUM CHLORIDE 100 ML IVPB SCH (18:36)
[2023-09-23] MEDS ORDERED: INSULIN (LEVEMIR) 100 UNITS/ML UNITS SQ SCH (22:00)
[2023-09-23] MEDS ORDERED: ATORVASTATIN CA 10 MG TABLET (FP) ONE ×2 (22:21→22:23)
[2023-09-23] MEDS: INSULIN (LEVEMIR) 100 UNITS/ML UNITS SQ SCH (23:03)
[2023-09-24 01:42] VITALS: BMI 27.7
[2023-09-24 09:14] LABS: BASO % 0.3 % (0-2.0); HEMATOCRIT 33.7 % (35.4-49); HEMOGLOBIN 11.2 GM/dL (11.7-16.9); LYMPH % 15.8 % (8-40); MCH 30.2 pg (25.7-33.7); MCHC 33.3 g/dl (32.0-35.9); MEAN CELL VOLUME 90.7 fl (80-96); MEAN PLT VOLUME 6.8 fl (7.5-11.1); MONO % 9.4 % (3.8-10.2); NEUT % 69.5 % (42.8-82.8); PLATELET COUNT 185 10^3/uL (134-434); RBC 3.72 M/mm3 (4.00-5.60); RDW 15.2 % (11.9-15.9); WHITE BLOOD COUNT 5.1 K/mm3 (4.0-10.0)
[2023-09-24 09:42] LABS: POTASSIUM 4.7 mmol/L (3.5-5.1)
[2023-09-24 09:50] LABS: BLOOD UREA NITROGEN 26.7 mg/dL (7-18)
[2023-09-24 09:54] LABS: ALBUMIN 3.2 g/dl (3.4-5.0); CALCIUM 8.8 mg/dL (8.5-10.1)
[2023-09-24 09:58] LABS: BILIRUBIN,TOTAL 0.5 mg/dL (0.2-1); CREATININE 2.1 mg/dL (0.55-1.3); TOT PROT 7.3 g/dl (6.4-8.2)
[2023-09-24] MEDS ORDERED: VALSARTAN 160 MG TABLET PO SCH (10:00)
[2023-09-24] MEDS ORDERED: INSULIN ASPART SLIDING SCALE (NOVOLOG) 1 VIAL SQ ONE (11:10)
[2023-09-24] MEDS: COLLAGENASE CLOSTRIDIUM HIST. 30 GRAMS TUBE TP SCH (12:36)
[2023-09-24] MEDS: amLODIPine BESYLATE 5 MG TABLET (FP) PO ONE (21:22)
[2023-09-26 08:56] LABS: BASO % 0.4 % (0-2.0); EOS % 3.4 % (0-4.5); HEMATOCRIT 34.4 % (35.4-49); HEMOGLOBIN 11.6 GM/dL (11.7-16.9); LYMPH % 17.8 % (8-40); MCHC 33.7 g/dl (32.0-35.9); MEAN PLT VOLUME 6.7 fl (7.5-11.1); MONO % 9.8 % (3.8-10.2); NEUT % 68.6 % (42.8-82.8); PLATELET COUNT 215 10^3/uL (134-434); RBC 3.86 M/mm3 (4.00-5.60); RDW 15.1 % (11.9-15.9); WHITE BLOOD COUNT 4.9 K/mm3 (4.0-10.0)
[2023-09-26 09:23] LABS: POTASSIUM 4.7 mmol/L (3.5-5.1)
[2023-09-26 09:34] LABS: ALBUMIN 3.4 g/dl (3.4-5.0)
[2023-09-26 09:37] LABS: CREATININE 2.2 mg/dL (0.55-1.3)
[2023-09-26 09:39] LABS: BILIRUBIN,TOTAL 0.5 mg/dL (0.2-1); TOT PROT 7.6 g/dl (6.4-8.2)
[2023-09-26] MEDS: LABETALOL HCL 200 MG TABLET (FP) PO ONE (18:30)
[2023-09-27 06:39] LABS: BASO % 0.5 % (0-2.0); EOS % 2.8 % (0-4.5); HEMATOCRIT 29.6 % (35.4-49); HEMOGLOBIN 10.2 GM/dL (11.7-16.9); LYMPH % 18.4 % (8-40); MCH 30.9 pg (25.7-33.7); MCHC 34.4 g/dl (32.0-35.9); MEAN CELL VOLUME 89.7 fl (80-96); MEAN PLT VOLUME 6.8 fl (7.5-11.1); MONO % 12.3 % (3.8-10.2); PLATELET COUNT 166 10^3/uL (134-434); RBC 3.29 M/mm3 (4.00-5.60); RDW 14.7 % (11.9-15.9); WHITE BLOOD COUNT 4.7 K/mm3 (4.0-10.0)
[2023-09-27 06:54] LABS: POTASSIUM 4.4 mmol/L (3.5-5.1)
[2023-09-27 07:01] LABS: BLOOD UREA NITROGEN 27.8 mg/dL (7-18); CALCIUM 8.6 mg/dL (8.5-10.1)
[2023-09-27] MEDS ORDERED: VALSARTAN 160 MG TABLET PO SCH (07:02)
[2023-09-27 07:04] LABS: CREATININE 2.4 mg/dL (0.55-1.3)
[2023-09-27 07:06] LABS: BILIRUBIN,TOTAL 0.8 mg/dL (0.2-1); TOT PROT 6.5 g/dl (6.4-8.2)
[2023-09-27] MEDS: VALSARTAN 160 MG TABLET PO SCH (08:14)
[2023-09-27 09:22] VITALS: BP 147/78; PULSE 72; RESP 18; TEMP 97.9
[2023-09-27] MEDS: LABETALOL HCL 100 MG TABLET (FP) PO ONE (10:55)
== END 2023-09-27 12:52 | disposition home or self-care (01) | DRG 638 ==
LOC: JER 14:04 → JERBED 15:10 → J7W 09-23 22:48 → OBSVTOIN 09-25 11:34
PROVIDERS: ADMIT Internal Medicine; ATTEND Internal Medicine
DX: E11.621 Type 2 diabetes mellitus with foot ulcer (principal); I13.0 Hypertensive heart and chronic kidney disease with heart failure and stage 1 through stage 4 chronic kidney disease, or unspecified chronic kidney disease; I50.32 Chronic diastolic (congestive) heart failure; L03.115 Cellulitis of right lower limb; L97.919 Non-pressure chronic ulcer of unspecified part of right lower leg with unspecified severity; L97.429 Non-pressure chronic ulcer of left heel and midfoot with unspecified severity; L03.116 Cellulitis of left lower limb; N17.9 Acute kidney failure, unspecified; D48.9 Neoplasm of uncertain behavior, unspecified; E11.40 Type 2 diabetes mellitus with diabetic neuropathy, unspecified; N18.9 Chronic kidney disease, unspecified; N18.30 Chronic kidney disease, stage 3 unspecified; E78.5 Hyperlipidemia, unspecified; E11.610 Type 2 diabetes mellitus with diabetic neuropathic arthropathy
CPT/HCPCS: 0241U-QW; 36415; 73630-TC-LT; 73630-TC-RT-FY; 80053; 82962; 83735; 84100; 85025; 85027; 85610; 85651; 85730; 86140; 87040; 87070; 87076; 87186; 87205; 93926-TC; 99285-25; G0378; G0463-25; G0480; J1644

== ENCOUNTER 2023-10-16 23:19 | Emergency (ER) | payer OTHER, MEDICARE ==
[2023-10-16 23:25] VITALS: BP 137/94; PULSE 102; RESP 19; TEMP 98.8; BMI 27.3
[2023-10-17] MEDS ORDERED: ONDANSETRON 4 MG/2 ML VIAL ONE (00:29)
[2023-10-17] MEDS: ONDANSETRON 4 MG/2 ML VIAL IVPUSH ONE (00:42)
[2023-10-17] MEDS: SODIUM CHLORIDE 1,000 ML IV STA (00:42)
[2023-10-17 00:48] LABS: BASO % 0.4 % (0-2.0); EOS % 2.8 % (0-4.5); HEMATOCRIT 32.9 % (35.4-49); HEMOGLOBIN 11.2 GM/dL (11.7-16.9); LYMPH % 13.9 % (8-40); MCH 30.1 pg (25.7-33.7); MCHC 34.1 g/dl (32.0-35.9); MEAN CELL VOLUME 88.3 fl (80-96); MEAN PLT VOLUME 6.3 fl (7.5-11.1); MONO % 8.8 % (3.8-10.2); NEUT % 74.1 % (42.8-82.8); PLATELET COUNT 284 10^3/uL (134-434); RBC 3.72 M/mm3 (4.00-5.60); RDW 14.3 % (11.9-15.9); WHITE BLOOD COUNT 7.3 K/mm3 (4.0-10.0)
[2023-10-17 01:08] LABS: POTASSIUM 5.1 mmol/L (3.5-5.1)
[2023-10-17 01:10] LABS: ALBUMIN 3.3 g/dl (3.4-5.0); BLOOD UREA NITROGEN 18.2 mg/dL (7-18); CALCIUM 9.2 mg/dL (8.5-10.1)
[2023-10-17 01:15] LABS: BILIRUBIN,TOTAL 0.3 mg/dL (0.2-1); TOT PROT 7.2 g/dl (6.4-8.2)
== END 2023-10-17 01:57 | disposition home or self-care (01) ==
LOC: JER 23:19
PROC: 3E033GC Introduction of Other Therapeutic Substance into Peripheral Vein, Percutaneous Approach (ICD-10-PCS; principal; 2023-10-17)
PROC: 3E0337Z Introduction of Electrolytic and Water Balance Substance into Peripheral Vein, Percutaneous Approach (ICD-10-PCS; 2023-10-17)
DX: E11.621 Type 2 diabetes mellitus with foot ulcer (principal); L97.519 Non-pressure chronic ulcer of other part of right foot with unspecified severity; R11.2 Nausea with vomiting, unspecified
CPT/HCPCS: 36415; 80053; 82962; 85025; 99284-25

== ENCOUNTER 2023-11-02 12:34 | Inpatient (IN) | payer OTHER, MEDICARE ==
[2023-11-02] MEDS ORDERED: PIPERACILLIN/TAZOB 2.25 GM 2.25 GM/50 ML BAG IVPB ONE (14:22)
[2023-11-02] MEDS ORDERED: ONDANSETRON 4 MG/2 ML VIAL ONE (14:22)
[2023-11-02 14:28] LABS: BASO % 0.5 % (0-2.0); EOS % 3.5 % (0-4.5); HEMATOCRIT 32.6 % (35.4-49); HEMOGLOBIN 10.9 GM/dL (11.7-16.9); LYMPH % 12.1 % (8-40); MCHC 33.6 g/dl (32.0-35.9); MEAN CELL VOLUME 89.3 fl (80-96); MEAN PLT VOLUME 6.5 fl (7.5-11.1); MONO % 8.2 % (3.8-10.2); NEUT % 75.7 % (42.8-82.8); PLATELET COUNT 355 10^3/uL (134-434); RBC 3.65 M/mm3 (4.00-5.60); WHITE BLOOD COUNT 6.4 K/mm3 (4.0-10.0)
[2023-11-02] MEDS: LACTATED RINGERS SOLUTION 1000 ML INFUS.BAG IV ONE (14:28)
[2023-11-02] MEDS: ONDANSETRON 4 MG/2 ML VIAL IVPUSH ONE (14:29)
[2023-11-02] MEDS: PIPERACILLIN/TAZOB 2.25 GM 2.25 GM in DEXTROSE 5%-WATER - 50 ML IVPB ONE (14:29)
[2023-11-02 14:38] LABS: POTASSIUM 5.2 mmol/L (3.5-5.1)
[2023-11-02 14:41] LABS: CALCIUM 9.2 mg/dL (8.5-10.1)
[2023-11-02 14:42] LABS: ALBUMIN 3.4 g/dl (3.4-5.0); BLOOD UREA NITROGEN 24.2 mg/dL (7-18); MAGNESIUM 2.5 mg/dL (1.8-2.4)
[2023-11-02 14:47] LABS: BILIRUBIN,TOTAL 0.3 mg/dL (0.2-1); TOT PROT 7.5 g/dl (6.4-8.2)
[2023-11-02] MEDS ORDERED: SODIUM ZIRCONIUM CYCLOSILICATE (LOKELMA) 10 GM PACKET ONE (14:57)
[2023-11-02] MEDS ORDERED: VANCOMYCIN 1 GRAM (PRE-DOCKED) 1,000 MG/250 ML BAG IVPB ONE (14:57)
[2023-11-02] MEDS: SODIUM ZIRCONIUM CYCLOSILICATE (LOKELMA) 5 GM PACKET PO ONE (15:20)
[2023-11-02] MEDS: VANCOMYCIN 1,000 MG in DEXTROSE 5%-WATER - 250 ML IVPB ONE (15:20)
[2023-11-02] MEDS ORDERED: ACETAMINOPHEN INJECTION 100 ML IVPB ONE (15:21)
[2023-11-02] MEDS: ACETAMINOPHEN 1000 MG/100 ML BAG IVPB ONE ×2 (15:23→22:40)
[2023-11-02 15:30] LABS: ERYTHROCYTE SEDIMENTATION RATE 96 mm/hr (0-20)
[2023-11-02 18:30] VITALS: BMI 27.8
[2023-11-02] MEDS ORDERED: LINEZOLID 600 MG PREMIX BAG 600 MG in PREMIX 300 IVPB SCH (19:30)
[2023-11-02] MEDS: CLINDAMYCIN 900 MG PREMIX IVPB 900 MG/50 ML BAG IVPB SCH (21:53)
[2023-11-02] MEDS: SODIUM CHLORIDE 1,000 ML IV SCH (21:53)
[2023-11-02] MEDS: PIPERACILLIN/TAZOB 3.375 GM 3.375 GM in DEXTROSE 5%-WATER - 50 ML IVPB SCH (21:53)
[2023-11-02] MEDS ORDERED: PIPERACILLIN/TAZOB 3.375 GM 3.375 GM in DEXTROSE 5%-WATER - 50 ML IVPB SCH (22:00)
[2023-11-02] MEDS ORDERED: LINEZOLID 600 MG PREMIX BAG 600 MG/300 ML BAG IVPB SCH ×2 (22:00)
[2023-11-03] MEDS: LABETALOL HCL 100 MG TABLET (FP) PO SCH (01:54)
[2023-11-03] MEDS: GABAPENTIN 300 MG CAPSULE PO SCH (05:58)
[2023-11-03] MEDS: INSULIN ASPART SLIDING SCALE (NOVOLOG) 1 VIAL SQ SCH (06:12)
[2023-11-03 09:27] LABS: HEMATOCRIT 30.6 % (35.4-49); HEMOGLOBIN 10.5 GM/dL (11.7-16.9); MCH 30.6 pg (25.7-33.7); MCHC 34.1 g/dl (32.0-35.9); MEAN CELL VOLUME 89.7 fl (80-96); MEAN PLT VOLUME 6.9 fl (7.5-11.1); PLATELET COUNT 344 10^3/uL (134-434); RBC 3.41 M/mm3 (4.00-5.60); RDW 14.2 % (11.9-15.9); WHITE BLOOD COUNT 7.2 K/mm3 (4.0-10.0)
[2023-11-03 09:34] LABS: POTASSIUM 4.7 mmol/L (3.5-5.1)
[2023-11-03 10:00] LABS: EPI CELLS 0 /uL (0-25.1); HYALINE CASTS 0 /uL (0-3.1); PH,URINE 6.5 (5.0-8.0); URINE APPEARANCE CLEAR; URINE BACTERIA 10 /uL (0-1359); URINE BILIRUBIN NEGATIVE (NEGATIVE); URINE COLOR YELLOW; URINE GLUCOSE (UA) NEGATIVE (NEGATIVE); URINE KETONE NEGATIVE (NEGATIVE); URINE LEUK ESTERASE NEGATIVE (NEGATIVE); URINE NITRITE NEGATIVE (NEGATIVE); URINE PROTEIN 1+ (NEGATIVE); URINE RBC 11 /uL (0-23.9); URINE UROBILINOGEN 0.2 mg/dL (0.2-1.0); URINE WBC 1 /uL (0-25.8)
[2023-11-03 10:02] LABS: ALBUMIN 3.2 g/dl (3.4-5.0); MAGNESIUM 2.3 mg/dL (1.8-2.4)
[2023-11-03 10:03] LABS: CREATININE 2.5 mg/dL (0.55-1.3)
[2023-11-03 10:05] LABS: BILIRUBIN,TOTAL 0.4 mg/dL (0.2-1)
[2023-11-03] MEDS: VALSARTAN 160 MG TABLET PO SCH (13:31)
[2023-11-03] MEDS ORDERED: SODIUM ZIRCONIUM CYCLOSILICATE (LOKELMA) 5 GM PACKET PO ONE (14:40)
[2023-11-03] MEDS ORDERED: VANCOMYCIN/WATER FOR INJ (PEG) 1,000 MG/200 ML BAG IVPB SCH (15:00)
[2023-11-03] MEDS: COLLAGENASE CLOSTRIDIUM HIST. 30 GRAMS TUBE TP SCH (15:45)
[2023-11-03] MEDS: SODIUM CHLORIDE 0.45% 1,000 ML IV SCH (16:45)
[2023-11-03] MEDS: HEPARIN NA (PORCINE) 5,000 UNITS/ML 1ML VIAL SQ SCH (21:52)
[2023-11-03] MEDS: ATORVASTATIN CA 10 MG TABLET (FP) PO SCH (21:52)
[2023-11-03] MEDS ORDERED: HEPARIN NA (PORCINE) 5,000 UNITS/ML 1ML VIAL SQ SCH (22:00)
[2023-11-03] MEDS: INSULIN (LEVEMIR) 100 UNITS/ML UNITS SQ SCH (22:07)
[2023-11-04 10:29] LABS: BASO % 0.7 % (0-2.0); EOS % 5.4 % (0-4.5); HEMATOCRIT 28.5 % (35.4-49); HEMOGLOBIN 9.6 GM/dL (11.7-16.9); LYMPH % 19.4 % (8-40); MCH 30.3 pg (25.7-33.7); MCHC 33.7 g/dl (32.0-35.9); MEAN CELL VOLUME 90.1 fl (80-96); MEAN PLT VOLUME 7.1 fl (7.5-11.1); MONO % 9.8 % (3.8-10.2); NEUT % 64.7 % (42.8-82.8); PLATELET COUNT 280 10^3/uL (134-434); RBC 3.17 M/mm3 (4.00-5.60); WHITE BLOOD COUNT 5.4 K/mm3 (4.0-10.0)
[2023-11-04 10:49] LABS: POTASSIUM 4.7 mmol/L (3.5-5.1)
[2023-11-04 10:51] LABS: BLOOD UREA NITROGEN 23.1 mg/dL (7-18); CALCIUM 8.9 mg/dL (8.5-10.1)
[2023-11-04 10:55] LABS: CREATININE 2.4 mg/dL (0.55-1.3)
[2023-11-04 10:56] LABS: BILIRUBIN,TOTAL 0.3 mg/dL (0.2-1); TOT PROT 6.5 g/dl (6.4-8.2)
[2023-11-04] MEDS: LIDOCAINE 5% TOPICAL PATCH TP ONE (12:51)
[2023-11-04] MEDS: ACETAMINOPHEN 325 MG TABLET (FP) PO PRN (13:06)
[2023-11-04] MEDS: LIDOCAINE PATCH REMOVAL MC SCH (22:46)
[2023-11-05 10:19] LABS: BASO % 0.5 % (0-2.0); EOS % 5.6 % (0-4.5); HEMATOCRIT 27.9 % (35.4-49); HEMOGLOBIN 9.5 GM/dL (11.7-16.9); LYMPH % 14.3 % (8-40); MCH 30.9 pg (25.7-33.7); MEAN CELL VOLUME 90.9 fl (80-96); MEAN PLT VOLUME 7.1 fl (7.5-11.1); MONO % 8.3 % (3.8-10.2); NEUT % 71.3 % (42.8-82.8); PLATELET COUNT 269 10^3/uL (134-434); RBC 3.07 M/mm3 (4.00-5.60); RDW 13.6 % (11.9-15.9); WHITE BLOOD COUNT 6.3 K/mm3 (4.0-10.0)
[2023-11-05 10:51] LABS: BLOOD UREA NITROGEN 22.9 mg/dL (7-18); CALCIUM 9.2 mg/dL (8.5-10.1)
[2023-11-05 10:54] LABS: CREATININE 2.4 mg/dL (0.55-1.3)
[2023-11-05 10:55] LABS: BILIRUBIN,TOTAL 0.3 mg/dL (0.2-1)
[2023-11-05 10:56] LABS: TOT PROT 6.5 g/dl (6.4-8.2)
[2023-11-06 08:28] LABS: BASO % 0.5 % (0-2.0); EOS % 5.1 % (0-4.5); HEMATOCRIT 27.4 % (35.4-49); HEMOGLOBIN 9.5 GM/dL (11.7-16.9); LYMPH % 15.9 % (8-40); MCH 30.7 pg (25.7-33.7); MCHC 34.5 g/dl (32.0-35.9); MEAN CELL VOLUME 88.8 fl (80-96); MEAN PLT VOLUME 6.9 fl (7.5-11.1); NEUT % 68.5 % (42.8-82.8); PLATELET COUNT 240 10^3/uL (134-434); RBC 3.08 M/mm3 (4.00-5.60); RDW 14.1 % (11.9-15.9); WHITE BLOOD COUNT 5.6 K/mm3 (4.0-10.0)
[2023-11-06 08:48] LABS: BLOOD UREA NITROGEN 21.6 mg/dL (7-18); CALCIUM 8.7 mg/dL (8.5-10.1)
[2023-11-06 08:49] LABS: MAGNESIUM 1.9 mg/dL (1.8-2.4)
[2023-11-06 08:52] LABS: CREATININE 2.4 mg/dL (0.55-1.3)
[2023-11-06 08:53] LABS: BILIRUBIN,TOTAL 0.3 mg/dL (0.2-1); TOT PROT 6.4 g/dl (6.4-8.2)
[2023-11-06] MEDS ORDERED: INSULIN ASPART SLIDING SCALE (NOVOLOG) 1 VIAL SQ ONE (18:29)
[2023-11-07 09:44] LABS: POTASSIUM 4.8 mmol/L (3.5-5.1)
[2023-11-07 09:46] LABS: BASO % 0.8 % (0-2.0); HEMATOCRIT 27.9 % (35.4-49); HEMOGLOBIN 9.6 GM/dL (11.7-16.9); LYMPH % 16.5 % (8-40); MCH 30.8 pg (25.7-33.7); MCHC 34.3 g/dl (32.0-35.9); MEAN CELL VOLUME 89.9 fl (80-96); NEUT % 68.7 % (42.8-82.8); PLATELET COUNT 241 10^3/uL (134-434); WHITE BLOOD COUNT 5.9 K/mm3 (4.0-10.0)
[2023-11-07 09:49] LABS: CALCIUM 8.7 mg/dL (8.5-10.1)
[2023-11-07 09:50] LABS: ALBUMIN 3.1 g/dl (3.4-5.0); BLOOD UREA NITROGEN 23.5 mg/dL (7-18); MAGNESIUM 1.9 mg/dL (1.8-2.4)
[2023-11-07 09:53] LABS: CREATININE 2.5 mg/dL (0.55-1.3)
[2023-11-07 09:54] LABS: TOT PROT 6.7 g/dl (6.4-8.2)
[2023-11-07 09:55] LABS: BILIRUBIN,TOTAL 0.4 mg/dL (0.2-1)
[2023-11-08 08:45] LABS: BASO % 0.5 % (0-2.0); EOS % 3.8 % (0-4.5); HEMATOCRIT 29.1 % (35.4-49); HEMOGLOBIN 9.6 GM/dL (11.7-16.9); LYMPH % 14.8 % (8-40); MCH 29.9 pg (25.7-33.7); MCHC 32.9 g/dl (32.0-35.9); MEAN CELL VOLUME 90.7 fl (80-96); MEAN PLT VOLUME 7.1 fl (7.5-11.1); MONO % 12.5 % (3.8-10.2); NEUT % 68.4 % (42.8-82.8); PLATELET COUNT 238 10^3/uL (134-434); RDW 14.1 % (11.9-15.9); WHITE BLOOD COUNT 5.8 K/mm3 (4.0-10.0)
[2023-11-08 09:04] LABS: POTASSIUM 4.8 mmol/L (3.5-5.1)
[2023-11-08 09:07] LABS: CALCIUM 9.1 mg/dL (8.5-10.1)
[2023-11-08 09:08] LABS: ALBUMIN 3.1 g/dl (3.4-5.0); BLOOD UREA NITROGEN 22.8 mg/dL (7-18); MAGNESIUM 1.9 mg/dL (1.8-2.4)
[2023-11-08 09:13] LABS: BILIRUBIN,TOTAL 0.3 mg/dL (0.2-1)
[2023-11-08 09:16] LABS: CREATININE 2.3 mg/dL (0.55-1.3)
[2023-11-08 09:18] LABS: TOT PROT 6.6 g/dl (6.4-8.2)
[2023-11-08 14:22] VITALS: BP 114/67; PULSE 66; RESP 18; TEMP 97.9
== END 2023-11-08 14:05 | disposition home or self-care (01) | DRG 638 ==
LOC: JER 12:34 → JERBED 15:09 → OBSVTOIN 17:00 → J8W 17:57
PROVIDERS: ADMIT Internal Medicine; ATTEND Nurse Practitioner Acute Care
DX: E11.621 Type 2 diabetes mellitus with foot ulcer (principal); I13.0 Hypertensive heart and chronic kidney disease with heart failure and stage 1 through stage 4 chronic kidney disease, or unspecified chronic kidney disease; L03.116 Cellulitis of left lower limb; I50.32 Chronic diastolic (congestive) heart failure; D48.9 Neoplasm of uncertain behavior, unspecified; E11.40 Type 2 diabetes mellitus with diabetic neuropathy, unspecified; E11.319 Type 2 diabetes mellitus with unspecified diabetic retinopathy without macular edema; N18.30 Chronic kidney disease, stage 3 unspecified; E11.610 Type 2 diabetes mellitus with diabetic neuropathic arthropathy; K21.9 Gastro-esophageal reflux disease without esophagitis; L97.529 Non-pressure chronic ulcer of other part of left foot with unspecified severity; L08.9 Local infection of the skin and subcutaneous tissue, unspecified; Z79.4 Long term (current) use of insulin
CPT/HCPCS: 0241U-QW; 36415; 71045-TC-FY; 73630-TC-LT; 73718-TC-LT; 76775-TC; 76856-TC; 80053; 81003; 82962; 83036; 83735; 84100; 84484; 85025; 85027; 85651; 86140; 86850; 86900; 86901; 87040; 87070; 87081; 87186; 87205; 93005; 93010; 93306-TC; 99285-25; G0378; G0480; J0131; J1644

== ENCOUNTER 2024-01-18 01:04 | Inpatient (IN) | payer OTHER, MEDICARE ==
[2024-01-18] MEDS ORDERED: ACETAMINOPHEN INJECTION 100 ML ONE (02:22)
[2024-01-18] MEDS ORDERED: PIPERACILLIN/TAZOB 3.375 GM 3.375 GM/50 ML BAG IVPB ONE (02:23)
[2024-01-18 02:26] LABS: BASO % 0.3 % (0-2.0); HEMATOCRIT 28.8 % (35.4-49); HEMOGLOBIN 9.9 GM/dL (11.7-16.9); LYMPH % 14.3 % (8-40); MCH 31.1 pg (25.7-33.7); MCHC 34.3 g/dl (32.0-35.9); MEAN CELL VOLUME 90.8 fl (80-96); MEAN PLT VOLUME 8.3 fl (7.5-11.1); MONO % 9.2 % (3.8-10.2); NEUT % 74.2 % (42.8-82.8); PLATELET COUNT 312 10^3/uL (134-434); RBC 3.17 M/mm3 (4.00-5.60); RDW 15.3 % (11.9-15.9); WHITE BLOOD COUNT 5.9 K/mm3 (4.0-10.0)
[2024-01-18] MEDS: ACETAMINOPHEN 1000 MG/100 ML BAG IVPB ONE (02:33)
[2024-01-18] MEDS: PIPERACILLIN/TAZOB 3.375 GM 3.375 GM in DEXTROSE 5%-WATER - 50 ML IVPB ONE (02:40)
[2024-01-18 02:45] LABS: POTASSIUM 5.3 mmol/L (3.5-5.1)
[2024-01-18 02:46] LABS: CALCIUM 8.6 mg/dL (8.5-10.1)
[2024-01-18 02:47] LABS: ALBUMIN 3.2 g/dl (3.4-5.0); BLOOD UREA NITROGEN 29.5 mg/dL (7-18)
[2024-01-18 02:50] LABS: CREATININE 2.6 mg/dL (0.55-1.3)
[2024-01-18 02:52] LABS: BILIRUBIN,TOTAL 0.4 mg/dL (0.2-1); TOT PROT 7.1 g/dl (6.4-8.2)
[2024-01-18] MEDS ORDERED: VANCOMYCIN 1 GRAM (PRE-DOCKED) 1,000 MG/250 ML BAG IVPB ONE (03:08)
[2024-01-18] MEDS: VANCOMYCIN 1,000 MG in DEXTROSE 5%-WATER - 250 ML IVPB ONE (03:19)
[2024-01-18] MEDS ORDERED: ACETAMINOPHEN 1000 MG/100 ML BAG IVPB PRN (06:23)
[2024-01-18] MEDS: SODIUM CHLORIDE 1,000 ML IV SCH (06:48)
[2024-01-18] MEDS: INSULIN ASPART SLIDING SCALE (NOVOLOG) 1 VIAL SQ SCH (07:23)
[2024-01-18] MEDS ORDERED: PIPERACILLIN/TAZOB 3.375 GM 3.375 GM in DEXTROSE 5%-WATER - 50 ML IVPB SCH (08:00)
[2024-01-18] MEDS ORDERED: LABETALOL HCL 100 MG TABLET (FP) PO SCH (10:00)
[2024-01-18] MEDS: PIPERACILLIN/TAZOB 3.375 GM 3.375 GM in DEXTROSE 5%-WATER - 50 ML IVPB SCH (10:28)
[2024-01-18] MEDS: GABAPENTIN 300 MG CAPSULE PO SCH (13:27)
[2024-01-18 14:03] VITALS: BMI 28.1
[2024-01-18] MEDS: PIPERACILLIN/TAZOB 2.25 GM 2.25 GM in DEXTROSE 5%-WATER - 50 ML IVPB SCH (14:15)
[2024-01-18] MEDS: LABETALOL HCL 100 MG TABLET (FP) PO SCH (14:15)
[2024-01-18] MEDS: DOXYCYCLINE MONOHYDRATE 25 MG/5 ML SUSPENSION PO SCH (18:24)
[2024-01-18] MEDS: DOXYCYCLINE HYCLATE 100 MG CAPSULE PO SCH (19:25)
[2024-01-18] MEDS: ATORVASTATIN CA 10 MG TABLET (FP) PO SCH (21:37)
[2024-01-18] MEDS: HEPARIN NA (PORCINE) 5,000 UNITS/ML 1ML VIAL SQ SCH (21:37)
[2024-01-18] MEDS: INSULIN (LEVEMIR) 100 UNITS/ML UNITS SQ SCH (22:03)
[2024-01-19 09:25] LABS: BASO % 0.3 % (0-2.0); EOS % 3.2 % (0-4.5); HEMATOCRIT 29.6 % (35.4-49); HEMOGLOBIN 9.9 GM/dL (11.7-16.9); LYMPH % 9.5 % (8-40); MCH 30.6 pg (25.7-33.7); MCHC 33.4 g/dl (32.0-35.9); MEAN CELL VOLUME 91.8 fl (80-96); MEAN PLT VOLUME 6.7 fl (7.5-11.1); MONO % 7.2 % (3.8-10.2); NEUT % 79.8 % (42.8-82.8); PLATELET COUNT 222 10^3/uL (134-434); RBC 3.22 M/mm3 (4.00-5.60); RDW 15.2 % (11.9-15.9); WHITE BLOOD COUNT 5.8 K/mm3 (4.0-10.0)
[2024-01-19 09:26] LABS: HEMATOCRIT 29.4 % (35.4-49); HEMOGLOBIN 9.9 GM/dL (11.7-16.9); MCH 30.7 pg (25.7-33.7); MCHC 33.6 g/dl (32.0-35.9); MEAN CELL VOLUME 91.2 fl (80-96); MEAN PLT VOLUME 6.9 fl (7.5-11.1); PLATELET COUNT 218 10^3/uL (134-434); RBC 3.22 M/mm3 (4.00-5.60); RDW 15.1 % (11.9-15.9); WHITE BLOOD COUNT 5.8 K/mm3 (4.0-10.0)
[2024-01-19 09:39] LABS: POTASSIUM 4.3 mmol/L (3.5-5.1)
[2024-01-19 09:42] LABS: ALBUMIN 2.9 g/dl (3.4-5.0); BLOOD UREA NITROGEN 28.2 mg/dL (7-18); CALCIUM 8.6 mg/dL (8.5-10.1); MAGNESIUM 2.2 mg/dL (1.8-2.4)
[2024-01-19 09:45] LABS: CREATININE 2.4 mg/dL (0.55-1.3); PHOSPHOROUS 2.9 mg/dL (2.5-4.9)
[2024-01-19 09:47] LABS: BILIRUBIN,TOTAL 0.5 mg/dL (0.2-1); TOT PROT 6.6 g/dl (6.4-8.2)
[2024-01-19] MEDS: amLODIPine BESYLATE 5 MG TABLET (FP) PO ONE (22:27)
[2024-01-20] MEDS: hydrALAZINE HCL 10 MG TABLET PO ONE (04:17)
[2024-01-20] MEDS: LABETALOL HCL 100 MG TABLET (FP) PO SCH (09:22)
[2024-01-20 09:30] LABS: BASO % 0.3 % (0-2.0); EOS % 4.1 % (0-4.5); HEMATOCRIT 29.7 % (35.4-49); HEMOGLOBIN 10.2 GM/dL (11.7-16.9); LYMPH % 14.3 % (8-40); MCHC 34.2 g/dl (32.0-35.9); MEAN CELL VOLUME 90.7 fl (80-96); MEAN PLT VOLUME 6.9 fl (7.5-11.1); MONO % 8.1 % (3.8-10.2); NEUT % 73.2 % (42.8-82.8); PLATELET COUNT 216 10^3/uL (134-434); RBC 3.28 M/mm3 (4.00-5.60); RDW 14.8 % (11.9-15.9); WHITE BLOOD COUNT 5.6 K/mm3 (4.0-10.0)
[2024-01-20 09:52] LABS: POTASSIUM 4.2 mmol/L (3.5-5.1)
[2024-01-20 09:55] LABS: BLOOD UREA NITROGEN 24.2 mg/dL (7-18); CALCIUM 8.9 mg/dL (8.5-10.1)
[2024-01-20 09:59] LABS: CREATININE 2.3 mg/dL (0.55-1.3)
[2024-01-20 10:00] LABS: BILIRUBIN,TOTAL 0.5 mg/dL (0.2-1)
[2024-01-21] MEDS: ACETAMINOPHEN 1000 MG/100 ML BAG IVPB ONE (00:59)
[2024-01-21 10:19] LABS: BASO % 0.4 % (0-2.0); HEMOGLOBIN 9.6 GM/dL (11.7-16.9); LYMPH % 22.2 % (8-40); MCH 30.5 pg (25.7-33.7); MCHC 33.2 g/dl (32.0-35.9); MEAN CELL VOLUME 91.9 fl (80-96); MEAN PLT VOLUME 6.9 fl (7.5-11.1); MONO % 11.6 % (3.8-10.2); NEUT % 61.8 % (42.8-82.8); PLATELET COUNT 213 10^3/uL (134-434); RBC 3.15 M/mm3 (4.00-5.60); RDW 15.2 % (11.9-15.9); WHITE BLOOD COUNT 4.2 K/mm3 (4.0-10.0)
[2024-01-21 12:37] LABS: POTASSIUM 4.2 mmol/L (3.5-5.1)
[2024-01-21 12:44] LABS: ALBUMIN 2.9 g/dl (3.4-5.0); BLOOD UREA NITROGEN 24.6 mg/dL (7-18)
[2024-01-21 12:47] LABS: BILIRUBIN,TOTAL 0.4 mg/dL (0.2-1); CREATININE 2.6 mg/dL (0.55-1.3); TOT PROT 6.5 g/dl (6.4-8.2)
[2024-01-21 14:38] LABS: RETICULOCYTES 1.63 % (0.5-1.5)
[2024-01-22] MEDS: amLODIPine BESYLATE 5 MG TABLET (FP) PO SCH (13:19)
[2024-01-22] MEDS ORDERED: PIPERACILLIN/TAZOBACTAM 2.25 GM VIAL IVPB ONE (14:18)
[2024-01-23] MEDS: ACETAMINOPHEN 1000 MG/100 ML BAG IVPB ONE (08:50)
[2024-01-23] MEDS: oxyCODONE HCL 5 MG TABLET PO PRN (09:26)
[2024-01-23 10:00] LABS: BASO % 0.4 % (0-2.0); EOS % 3.1 % (0-4.5); HEMATOCRIT 31.2 % (35.4-49); HEMOGLOBIN 10.4 GM/dL (11.7-16.9); LYMPH % 19.1 % (8-40); MCH 30.5 pg (25.7-33.7); MCHC 33.2 g/dl (32.0-35.9); MEAN CELL VOLUME 91.9 fl (80-96); MONO % 10.6 % (3.8-10.2); NEUT % 66.8 % (42.8-82.8); PLATELET COUNT 234 10^3/uL (134-434); RDW 14.7 % (11.9-15.9); WHITE BLOOD COUNT 5.6 K/mm3 (4.0-10.0)
[2024-01-23 10:08] LABS: POTASSIUM 4.5 mmol/L (3.5-5.1)
[2024-01-23 10:13] LABS: ALBUMIN 3.1 g/dl (3.4-5.0)
[2024-01-23 10:14] LABS: BLOOD UREA NITROGEN 32.3 mg/dL (7-18); CALCIUM 9.7 mg/dL (8.5-10.1)
[2024-01-23 10:17] LABS: CREATININE 2.7 mg/dL (0.55-1.3)
[2024-01-23 10:18] LABS: BILIRUBIN,TOTAL 0.5 mg/dL (0.2-1); TOT PROT 6.9 g/dl (6.4-8.2)
[2024-01-23] MEDS: VALSARTAN 80 MG TABLET PO SCH (10:28)
[2024-01-23] MEDS: clonazePAM 0.5 MG TABLET PO ONE (14:15)
[2024-01-23] MEDS ORDERED: hydrOXYzine PAMOATE 25 MG CAPSULE (FP) PO ONE (18:24)
[2024-01-23] MEDS: MELATONIN 5 MG TABLETS PO SCH (21:50)
[2024-01-24 09:36] LABS: BASO % 0.6 % (0-2.0); EOS % 3.4 % (0-4.5); HEMATOCRIT 31.4 % (35.4-49); HEMOGLOBIN 10.6 GM/dL (11.7-16.9); LYMPH % 18.6 % (8-40); MCH 30.7 pg (25.7-33.7); MCHC 33.8 g/dl (32.0-35.9); MEAN CELL VOLUME 90.7 fl (80-96); MONO % 10.4 % (3.8-10.2); PLATELET COUNT 238 10^3/uL (134-434); RBC 3.47 M/mm3 (4.00-5.60); RDW 14.5 % (11.9-15.9)
[2024-01-24 09:44] LABS: POTASSIUM 4.3 mmol/L (3.5-5.1)
[2024-01-24 09:55] LABS: ALBUMIN 3.1 g/dl (3.4-5.0); CALCIUM 9.4 mg/dL (8.5-10.1)
[2024-01-24 09:56] LABS: BLOOD UREA NITROGEN 36.8 mg/dL (7-18)
[2024-01-24 09:59] LABS: CREATININE 2.8 mg/dL (0.55-1.3)
[2024-01-24 10:00] LABS: BILIRUBIN,TOTAL 0.4 mg/dL (0.2-1)
[2024-01-24 11:48] VITALS: RESP 18
[2024-01-24] MEDS: AMOX TR/POT CLAV 500MG/125MG TABLETS (FP) PO SCH (18:28)
[2024-01-24] MEDS: GENTAMICIN SO4 0.1% TOPICAL OINTMENT 15 GM/TUBE TUBE TP SCH (23:11)
[2024-01-25] MEDS: ACETAMINOPHEN 500 MG TABLET (FP) PO ONE (01:12)
[2024-01-25 10:57] LABS: POTASSIUM 4.1 mmol/L (3.5-5.1)
[2024-01-25 10:58] LABS: CALCIUM 9.4 mg/dL (8.5-10.1)
[2024-01-25 10:59] LABS: BLOOD UREA NITROGEN 35.2 mg/dL (7-18)
[2024-01-25 11:02] LABS: CREATININE 2.4 mg/dL (0.55-1.3)
[2024-01-25] MEDS: AMOXICILLIN 500 MG CAPSULE (FP) PO SCH (12:59)
[2024-01-26 05:09] VITALS: BP 155/86; PULSE 66; TEMP 97.6
[2024-01-26] MEDS: VALSARTAN 160 MG TABLET PO SCH (09:29)
== END 2024-01-26 14:03 | disposition home or self-care (01) | DRG 603 ==
LOC: JER 01:04 → JERBED 02:01 → OBSVTOIN 04:54 → J6S 08:42
PROVIDERS: ADMIT Internal Medicine; ATTEND Internal Medicine
DX: L03.116 Cellulitis of left lower limb (principal); M86.60 Other chronic osteomyelitis, unspecified site; N18.4 Chronic kidney disease, stage 4 (severe); I12.9 Hypertensive chronic kidney disease with stage 1 through stage 4 chronic kidney disease, or unspecified chronic kidney disease; E11.621 Type 2 diabetes mellitus with foot ulcer; E11.69 Type 2 diabetes mellitus with other specified complication; E11.40 Type 2 diabetes mellitus with diabetic neuropathy, unspecified; D48.0 Neoplasm of uncertain behavior of bone and articular cartilage; M14.679 Charcot's joint, unspecified ankle and foot; L97.529 Non-pressure chronic ulcer of other part of left foot with unspecified severity; B96.5 Pseudomonas (aeruginosa) (mallei) (pseudomallei) as the cause of diseases classified elsewhere; E11.22 Type 2 diabetes mellitus with diabetic chronic kidney disease
CPT/HCPCS: 36415; 73630-TC-LT; 73700-TC-RT; 73718-TC-LT; 73718-TC-RT; 80048; 80053; 82728; 82962; 83540; 83550; 83605; 83735; 84100; 84466; 85025; 85027; 85045; 85730; 86140; 87040; 87070; 87186; 87205; 93005; 93010; 99285-25; G0378; G0480; J0131; J1644